=== PATIENT | female | born 1965 | race Caucasian/White ===

== ENCOUNTER 2016-09-17 21:28 | Observation (INO) ==
[2016-09-17] MEDS ORDERED: NITROGLYCERIN 2% OINT 1 INCH/GM PACK TOP STA (22:00)
[2016-09-17] MEDS ORDERED: METOPROLOL TARTRATE 25 MG TABLET PO STA (22:00)
[2016-09-17] MEDS ORDERED: ONDANSETRON 4 MG/2 ML VIAL IV STA (22:00)
--- NOTE | 2016-09-17 22:07 | Emergency Department Note ---
Arrival - Arrival Chief Complaint: Chest Pain ED Nursing Triage Note: Patient is a transfer from [facility] ER for chest pain and elevated blood sugar that began today. Patient recieved 10 units of regular insulin, 20mg labetalol, and 500ml NS bolus. Patient has a history of cardiac catheterization. 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 Mode of Arrival: Stretcher Limitations: No Limitations Source: Patient Time Seen by Provider: 09/17/16 22:00 - History of Present Illness HPI Narrative: This 51-year-old white female presents on transfer from [facility] where she had presented with chest pain and elevated blood sugar. The patient presents with a history of 2 months of progressively more severe and frequent exertional angina. Today was an especially hard pain and for that reason, she sought medical treatment. She was found to have very elevated blood pressure as well as a blood sugar in the 400s at [facility]. She was begun on treatment with subsequent cardiac laboratory revealing negative enzymes and negative EKG. The patient promptly responded to nitroglycerin and treatment of her blood pressures as concerns her chest pain and currently she is without pain. Patient's cardiac history is notable for [address] Keenan in 2011 and she has had no problems in association with her coronary artery disease until the last 2 months. At that time she began having left- sided chest pain associated with radiation between the shoulder blades and to the left upper extremity with accompanying mild shortness of breath but no nausea vomiting or diaphoresis. Currently she is in stable condition. Onset (ago): month(s) (Patient presents 2 months post onset of symptoms) Date of Last Menstrual Period: hysterectomy Allergies/Adverse Reactions: Allergies Allergy/AdvReac Type Severity Reaction Status Date / Time codeine Allergy RASH Verified 05/15/16 14:14 Hydromorphone [From Dilaudid] Allergy Verified 05/15/16 14:14 morphine Allergy RASH Verified 05/15/16 14:14 steroids AdvReac Unknown/Unable Uncoded 05/15/16 14:14 to obtain Home Medications: Home Medications Medication Instructions Recorded Confirmed Type Aspirin [Ecotrin] 81 mg PO DAILY 05/15/16 09/17/16 History Carvedilol [Coreg] 12.5 mg PO BID 05/15/16 09/17/16 History Ergocalciferol (Vitamin D2) 50,000 unit PO Q7D 05/15/16 09/17/16 History [Vitamin D2] Furosemide Tab [Lasix Tab] 40 mg PO DAILY 05/15/16 09/17/16 History Insulin Aspart [NovoLOG FlexPen] 40 unit SUBCUT TID 05/15/16 09/17/16 History Insulin Glargine,Hum.rec.anlog 50 unit SUBCUT BID 05/15/16 09/17/16 History [Lantus SoloStar] Linaclotide [Linzess] 145 mcg PO DAILY 05/15/16 09/17/16 History Pravastatin Sodium 40 mg PO DAILY 05/15/16 09/17/16 History Valsartan/Hydrochlorothiazide 1 each PO DAILY 05/15/16 09/17/16 History [Valsartan-Hctz 160-12.5 mg Tab] cefUROXime axetil [Cefuroxime] 250 mg PO BID 05/15/16 09/17/16 History Review of System - Review of System 12 point system: reviewed and no additional remarkable complaints except as stated - Review of System Constitutional: Present: as per HPI Respiratory: Present: as per HPI Cardiovascular: Present: as per HPI Gastrointestinal: Present: as per HPI Endocrine: Present: as per HPI Medical,Surgical,& Family Hx - Medical History Cardio: History of: CAD, Hypertension Neurology: History of: Multiple Sclerosis Endocrine: History of: Diabetes Mellitus (IDDM), Dyslipidemia Rheumatology: History of;: Fibromyalgia Gastrointestinal: History of: Liver Problems (cirrohosis) - Surgical History Cardiac Surgeries: Sugical HX of: Cardiac Catheterization (stent) - Social History Smoking Status: Never smoker Frequency of Alcohol Use: None Type of Drug Use: None Exam Physical Examination: GENERAL: Obese white female in no acute distress. HEENT: Normocephalic. No trauma. Moist mucous membranes. EOMI. PERRLA. ENT NML NECK: Supple. No adenopathy. CARDIAC: Regular. No murmurs. Heart rate 84 CHEST: Clear to auscultation. No respiratory distress. O2 sat 97% ABDOMEN: Soft. Nontender. Active bowel sounds. EXTREMITIES: No trauma. Normal ROM. No pedal edema. SKIN: No diaphoresis. No rash. NEURO: Alert. Neuro intact no focal deficits. Vital Signs: Vital Signs Temperature 97.6 F 09/17/16 21:40 Pulse Rate 84 09/17/16 21:40 Respiratory Rate 20 09/17/16 21:40 Blood Pressure 188/87 09/17/16 21:40 O2 Sat by Pulse Oximetry 97 09/17/16 21:40 Course - Reevaluation(s) Reevaluation #1: Discussed with patient the need for hospitalization for further evaluation. - Consultations Consultation #1: Discussed with Dr. Vyas who will admit for Dr. Wang for further evaluation and treatment. Results - Labs Labs: Labs per [facility]: Glucose 449, BNP 160 urinalysis negative troponin less than 0.03, MB 4.4 potassium 4.5, sodium 135, BUN 22, creatinine 0.9, glucose 485, white blood cell count 5700 hematocrit 33 Accu-Chek here 329 - Impressions EKG per [place] revealed sinus rhythm at [address] changes without any acute injury pattern noted - Diagnostic Findings Procedure: Chest x-ray: image reviewed by me, report reviewed by me (Chest x- ray reveals no acute disease.) Disposition Clinical Impression: Progressive angina, Coronary atherosclerosis, Diabetes, Obesity Case discussed with: patient, patient's family Disposition: Still a Patient Condition: Guarded Time of Disposition: 22:17
[2016-09-17] MEDS ORDERED: DEXTROSE 50% 25 GM/50 ML VIAL IV PRN (22:20)
[2016-09-17] MEDS ORDERED: GLUCAGON 1 MG VIAL IM PRN (22:20)
[2016-09-17] MEDS ORDERED: ONDANSETRON 4 MG/2 ML VIAL ONE (22:43)
[2016-09-17] MEDS ORDERED: METOPROLOL TARTRATE 25 MG TABLET ONE (22:43)
[2016-09-17] MEDS ORDERED: NITROGLYCERIN 2% OINT 1 INCH/GM PACK TOP ONE (22:43)
[2016-09-18 00:30] LABS: Troponin I Only < 0.015 NG/ML (0.00-0.045)
[2016-09-18] MEDS: SODIUM CHLORIDE 0.9% 1,000 ML IV SCH ×2 (00:32→15:21)
[2016-09-18] MEDS: NITROGLYCERIN 2% OINT 1 INCH/GM PACK TOP SCH ×4 (00:42→18:04)
[2016-09-18] MEDS: INSULIN REGULAR 100 UNIT/ML SUBCUT SCH ×5 (00:43→22:00)
[2016-09-18] MEDS: METOPROLOL TARTRATE 5 MG/5 ML VIAL IV SCH ×2 (00:44→05:22)
[2016-09-18] MEDS: ONDANSETRON 4 MG/2 ML VIAL IV PRN ×2 (05:01→16:52)
[2016-09-18] MEDS ORDERED: MAGNESIUM SULF RIDER 2 GM in PREMIX 1 EACH IV PRN ×2 (06:54→10:31)
[2016-09-18] MEDS ORDERED: MAGNESIUM SULF RIDER 4 GM in PREMIX 1 EACH IV PRN (06:54)
[2016-09-18] MEDS ORDERED: MORPHINE 2 MG/1 ML SYRINGE IV PRN (06:54)
[2016-09-18] MEDS ORDERED: ACETAMINOPHEN 325 MG TABLET PO PRN (06:54)
[2016-09-18] MEDS ORDERED: DOCUSATE SODIUM 100 MG CAPSULE PO PRN (06:54)
[2016-09-18 07:46] LABS: Basophils % 0.4 % (0.0-0.8); Eosinophils # 0.1 10*3/uL (0.0-0.87); Eosinophils % 1.3 % (0.00-10.9); Hematocrit 30.5 VOL% (35.7-47.0); Hemoglobin 10.1 GM/DL (12.0-16.0); Immature Granulocytes % 0.6 %; Immature Granulocytes Absolute 0.03 #; Lymphocytes # 1.2 10*3/uL (1.4-4.0); Lymphocytes % 23.2 % (21.3-54.2); Mean Corpuscular HGB Conc 33.1 GM/DL (32-36); Mean Corpuscular Hemoglobin 26 PG (27-34); Mean Corpuscular Volume 77.6 FL (87-102); Mean Platelet Volume 9.2 FL (9.6-12.0); Monocytes # 0.4 10*3/uL (0.11-0.8); Monocytes % 7.4 % (1.7-12.7); Neutrophils # 3.5 10*3/uL (1.4-7.4); Neutrophils % 67.1 % (38.7-73.9); Platelet Count 122 T/CUMM (130-400); Red Blood Count 3.93 MC/CUMM (3.8-5.5); Red Cell Distribution Width 14.5 % (9.3-17.3); White Blood Count 5.3 T/CUMM (4-12)
--- NOTE | 2016-09-18 08:05 | EKG Report ---
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
--- NOTE | 2016-09-18 08:05 | EKG Report ---
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
[2016-09-18 08:18] LABS: Blood Urea Nitrogen 23 MG/DL (7-18); Calcium 8.2 MG/DL (8.5-10.1); Glucose 250 MG/DL (74-106); Osmolality,Calculated 294.1 MOS/KG (273-304); Potassium 4.1 MMOL/L (3.5-5.1); Sodium 142 MMOL/L (136-145); Troponin I Only < 0.015 NG/ML (0.00-0.045)
[2016-09-18 08:21] LABS: Free T4 (Free Thyroxine) 1.07 NG/DL (0.76-1.46); Thyroid Stimulating Hormone 3.56 uIU/ml (0.358-3.74)
[2016-09-18 08:32] LABS: Troponin I Only < 0.015 NG/ML (0.00-0.045)
[2016-09-18 08:36] LABS: Calcium 8.5 MG/DL (8.5-10.1); Magnesium 2.1 MG/DL (1.8-2.4); Osmolality,Calculated 293.3 MOS/KG (273-304); Risk Ratio 3.94
[2016-09-18] MEDS ORDERED: ERGOCALCIFEROL 50,000 UNIT CAPSULE PO SCH (10:00)
--- NOTE | 2016-09-18 10:06 | Cardiology History & Physical ---
<Iona Ibrahim - Last Filed: 09/18/16 09:25> Assessment and Plan - Time spent with patient Time spent with patient: Greater than 30 minutes (1) Chest pain Status: Acute Assessment and plan: See plan of care listed below. Current Visit: Yes (2) Coronary artery disease Status: Chronic Assessment and plan: See plan of care listed below. Current Visit: Yes (3) Diabetes Status: Chronic Assessment and plan: See plan of care listed below. Current Visit: Yes (4) Hypertension Status: Chronic Assessment and plan: See plan of care listed below. Current Visit: Yes (5) Dyslipidemia Status: Chronic Current Visit: Yes (6) Esophageal varices Status: Chronic Assessment and plan: See plan of care listed below. Current Visit: Yes (7) Cirrhosis Status: Chronic Assessment and plan: See plan of care listed below. Current Visit: Yes (8) Obesity Status: Chronic Assessment and plan: See plan of care listed below. Current Visit: Yes History of Present Illness Chief complaint: Chest pain History of present illness: Business Development Representative: Dr. Wang Ms. Shipley is a 51 year old female with known history of CAD, recently blighted by Dr. Wang. She was transferred from [facility] with complaints of chest pain. She has cardiac risk factors significant for known history of coronary artery disease, diabetes, hypertension, dyslipidemia, obesity, sedentary lifestyle and family history of coronary artery disease (dad of myocardial infarction in his 40s, mother has coronary stents and both sisters have coronary stents). Patient is a lifetime non-smoker. Patient has past medical history of esophageal varices and anxiety. Patient's last heart catheterization was performed 2011 at [facility]. At that time she received PTCA and stent to mid RCA as well as to the mid segment of the first obtuse marginal artery. She was last seen in the cardiology clinic by Dr. Wang September 12, 2016. She reports that she did not report her chest discomfort due to not wanting to upset her significant other. Patient presents with a 2 month history of progressively more severe and frequent chest discomfort. Sometimes occurring with rest and other times with activity. She confirms that she has been under a lot of stress lately as her significant other recently had a stroke. Yesterday, she reports that while walking she began to experience sharp then tightening midsternal chest pain that radiated to her back and left arm. Unable to identify any specific alleviating or aggravating factors. Also, she is unable to rate her pain. This was not relieved with rest and remained constant, waxing and waning all day. Accompanied with shortness of breath and nausea. Also confirms worsening dyspnea on exertion and easy fatigability. Denies fever, chills, cough, abdominal pain, melena, hematochezia, orthopnea, PND and lower extremity swelling. When asked how this compared to when she required stents in 2012. She tells me that she thinks that it is similar in nature. However, is unable to fully remember all of her symptoms. She also reports that her blood pressure has been uncontrolled. Systolic blood pressure as high as 240. This frightened her, so she presented to [facility] for further evaluation. At [facility], she received nitroglycerin paste. She reports that this did slightly help her chest pain. However, did not completely relieve it. She was then transferred to [facility]. Patient has been admitted under cardiology service and housed on the telemetry unit. Patient was seen and examined on the telemetry unit. She is currently without chest pain, heaviness and tightness. Cardiac biomarkers have been negative 2. EKG is unremarkable. Upon exam, patient's chest is extremely tender to palpation. However, she confirms that this is not the same pain that she presented to the emergency department with. Patient has some typical and atypical symptoms. After discussing with Dr. Wang, we will schedule patient for cardiac catheterization in order to definitively rule out worsening of her underlying coronary artery disease. Risk and benefits of this procedure have been reviewed with the patient. She agrees to proceed later today. We will keep patient n.p.o. and plan for heart catheterization today. Assessment/plan: 1. CHEST PAIN - Patient has some typical and atypical symptoms. Patient does have significant risk factors including a known history of coronary artery disease and after discussing with Dr. Wang, we will schedule patient for cardiac catheterization in order to definitively rule out worsening of her underlying coronary artery disease. Risk and benefits of this procedure have been reviewed with the patient. She agrees to proceed later today. We will keep patient n.p.o. and plan for heart catheterization today. 2. HYPERTENSION - Home medications have been reinitiated. Will adjust as needed throughout her hospital stay. 3. DYSLIPIDEMIA -continue current plan of care with lipid lowering agent. 4. DIABETES -Accu-Cheks before meals and at bedtime. Sliding scale insulin. 5. OBESITY - Counseled patient on the importance of weight loss. 6. HISTORY OF CIRRHOSIS - This appears to be clinically stable. Continue current plan of care. Patient will not be given Valium preoperatively for heart catheterization given her cirrhosis diagnosis. 7. HISTORY OF ESOPHAGEAL VARICES - This appears to be clinically stable at present. 8. CAD - Continue current plan of care with lipid lowering agent and beta blockade. Home Medications Medication Instructions Recorded Confirmed Type Aspirin [Ecotrin] 81 mg PO DAILY 05/15/16 09/17/16 History Carvedilol [Coreg] 12.5 mg PO BID 05/15/16 09/17/16 History Ergocalciferol (Vitamin D2) 50,000 unit PO Q7D 05/15/16 09/17/16 History [Vitamin D2] Furosemide Tab [Lasix Tab] 40 mg PO DAILY 05/15/16 09/17/16 History Insulin Aspart [NovoLOG FlexPen] 40 unit SUBCUT TID 05/15/16 09/17/16 History Insulin Glargine,Hum.rec.anlog 50 unit SUBCUT BID 05/15/16 09/17/16 History [Lantus SoloStar] Linaclotide [Linzess] 145 mcg PO DAILY 05/15/16 09/17/16 History Pravastatin Sodium 40 mg PO DAILY 05/15/16 09/17/16 History Valsartan/Hydrochlorothiazide 1 each PO DAILY 05/15/16 09/17/16 History [Valsartan-Hctz 160-12.5 mg Tab] cefUROXime axetil [Cefuroxime] 250 mg PO BID 05/15/16 09/17/16 History Allergies Allergy/AdvReac Type Severity Reaction Status Date / Time codeine Allergy RASH Verified 05/15/16 14:14 Hydromorphone [From Dilaudid] Allergy Verified 05/15/16 14:14 morphine Allergy RASH Verified 05/15/16 14:14 steroids AdvReac Unknown/Unable Uncoded 05/15/16 14:14 to obtain - Constitutional Constitutional: Present: fatigue, lethargy, malaise. Absent: chills, fever(s), weakness, weight gain, weight loss - Cardiovascular Cardiovascular: Present: chest pain at rest, chest pain with activity, dyspnea, dyspnea on exertion, radiating jaw, neck or arm pain. Absent: claudication, diaphoresis, edema, lightheadedness, orthopnea, palpitations, PND - Respiratory Respiratory: Present: dyspnea, dyspnea on exertion. Absent: cough, hemoptysis, wheezing, snoring, pain on inspiration, change in phlegm color - Gastrointestinal Gastrointestinal: Present: nausea. Absent: abdominal pain, coffee ground emesis , hematochezia, melena - Neurological Neurological: Absent: abnormal gait, abnormal speech, behavioral changes, dizziness, frequent falls, syncope - Hematologic/Lymphatic Hematologic/Lymphatic: Absent: easy bleeding, easy bruising, lymphadenopathy Medical,Surgical,& Family Hx - Medical History Cardio: History of: CAD, Hypertension Psychological: History of: Anxiety Disorders Neurology: History of: Multiple Sclerosis Endocrine: History of: Diabetes Mellitus (NIDDM), Dyslipidemia Rheumatology: History of;: Fibromyalgia Gastrointestinal: History of: Esophageal Varices, Liver Problems (cirrohosis) - Surgical History Cardiac Surgeries: Sugical HX of: Cardiac Catheterization (stent) - Family History Family History: Reports;: Family Heart Disease - Social History Smoking Status: Never smoker Frequency of Alcohol Use: None Type of Drug Use: None Cardiology Physical Exam - Constitutional Vitals: Vital Signs Temp Pulse Resp BP Pulse Ox 97.7 F 71 18 171/74 95 09/18/16 07:20 09/18/16 07:20 09/18/16 07:20 09/18/16 07:20 09/18/16 07:20 Intake and Output 09/17/16 09/18/16 09/18/16 22:59 06:59 14:59 Output Total 400 / 400 Balance -400 / -400 Output: Urine 400 / 400 Other: Voiding Method Toilet Weight 225 lb Exam: General: Appears well with no apparent distress. Pleasant and cooperative. Appears comfortable. HEENT: PERRL, normocephalic, atraumatic. Mucous membranes moist. No jaundice noted. Conjunctiva moist and clear, sclerae anicteric Neck: No JVD/HJR, no thyromegaly or lymphadenopathy noted. No carotid bruit appreciated Cardiac: Regular rate and rhythm. No murmur rub or gallop. Chest wall: Tender to light palpation. Lungs: Clear to auscultation without accessory muscle use to assist the respiratory pattern. Not requiring oxygen. Abdomen: Soft, bowel sounds normoactive. Nontender and nondistended. No abdominal bruit or thrill noted. No masses noted. Extremities: No clubbing, cyanosis noted. No edema noted. Upper extremity pulses 2+. Lower extremity pulses 2+. Capillary refill less than 3 seconds. Skin: No unusual lesions or rashes. No skin breakdown appreciated. Neuro: Awake, alert and oriented 3. Moves all extremities well without hemiparesis or paralysis. No essential tremor is appreciated. Result/EKG - Labs CBC & BMP: 09/18/16 07:26 09/18/16 07:26 Lab Results: I have reviewed the past 24 hour labs Labs: Laboratory Results - last 24 hr 09/17/16 09/18/16 09/18/16 23:04 00:30 05:03 WBC RBC Hgb Hct MCV MCH MCHC RDW Plt Count MPV Neut % (Auto) Lymph % (Auto) [place] % (Auto) Eos % (Auto) Baso % (Auto) Neut # (Auto) Lymph # (Auto) [place] # (Auto) Eos # (Auto) Baso # (Auto) Immature Gran % Nucleated RBC % Immature Gran # Nucleated RBCs # Sodium Potassium Chloride Carbon Dioxide Anion Gap BUN Creatinine GFR Calculation BUN/Creatinine Ratio Glucose POC Glucose 341 H 303 H Calculated Osmolality Calcium Magnesium Total Creatine Kinase 100 CK-MB (CK-2) 2.8 Troponin I < 0.015 Triglycerides Cholesterol LDL Cholesterol VLDL Cholesterol HDL Cholesterol Heart Disease Risk Ratio Free T4 TSH 3rd Generation 09/18/16 09/18/16 09/18/16 07:26 07:26 07:26 WBC 5.3 RBC 3.93 Hgb 10.1 L Hct 30.5 L MCV 77.6 L MCH 26 L MCHC 33.1 RDW 14.5 Plt Count 122 L MPV 9.2 L Neut % (Auto) 67.1 Lymph % (Auto) 23.2 [place] % (Auto) 7.4 Eos % (Auto) 1.3 Baso % (Auto) 0.4 Neut # (Auto) 3.5 Lymph # (Auto) 1.2 L [place] # (Auto) 0.4 Eos # (Auto) 0.1 Baso # (Auto) 0.0 Immature Gran % 0.6 Nucleated RBC % 0.0 Immature Gran # 0.03 Nucleated RBCs # 0.00 Sodium 142 141 Potassium 4.1 4.0 Chloride 105 104 Carbon Dioxide 30 29 Anion Gap 11.1 12.0 BUN 23 H 24 H Creatinine 1.00 1.00 GFR Calculation 79 79 BUN/Creatinine Ratio 23.00 H 24.00 H Glucose 250 H 256 H POC Glucose Calculated Osmolality 294.1 293.3 Calcium 8.2 L 8.5 Magnesium 2.1 Total Creatine Kinase 71 D CK-MB (CK-2) 2.6 Troponin I < 0.015 Triglycerides 125 Cholesterol 197 LDL Cholesterol 127.0 VLDL Cholesterol 25.0 HDL Cholesterol 50 Heart Disease Risk Ratio 3.94 Free T4 TSH 3rd Generation 09/18/16 09/18/16 09/18/16 07:26 07:26 07:41 WBC RBC Hgb Hct MCV MCH MCHC RDW Plt Count MPV Neut % (Auto) Lymph % (Auto) [place] % (Auto) Eos % (Auto) Baso % (Auto) Neut # (Auto) Lymph # (Auto) [place] # (Auto) Eos # (Auto) Baso # (Auto) Immature Gran % Nucleated RBC % Immature Gran # Nucleated RBCs # Sodium Potassium Chloride Carbon Dioxide Anion Gap BUN Creatinine GFR Calculation BUN/Creatinine Ratio Glucose POC Glucose 272 H Calculated Osmolality Calcium Magnesium Total Creatine Kinase 73 CK-MB (CK-2) 2.5 Troponin I < 0.015 Triglycerides Cholesterol LDL Cholesterol VLDL Cholesterol HDL Cholesterol Heart Disease Risk Ratio Free T4 1.07 TSH 3rd Generation 3.560 - EKG EKG results: interpreted by me, sinus rhythm <Shana Wang - Last Filed: 09/18/16 11:37> History of Present Illness History of present illness: I have personally interviewed and examined the patient, reviewed the chart and discussed medical decision-making with practitioner Patrice. I have read this note and agree with the documentation herein. She has a mixed picture of some typical and atypical symptoms, but she is a high risk patient has had some ongoing symptoms that are difficult to delineate. We will proceed with left heart catheterization and consider bare-metal stenting even her underlying cirrhosis with possible varices. Cardiology Physical Exam - Constitutional Vitals: Vital Signs Temp Pulse Resp BP Pulse Ox 97.7 F 71 18 171/74 95 09/18/16 07:20 09/18/16 07:20 09/18/16 07:20 09/18/16 07:20 09/18/16 07:20 Intake and Output 09/17/16 09/18/16 09/18/16 23:59 07:59 15:59 Output Total 400 / 400 Balance -400 / -400 Output: Urine 400 / 400 Other: Voiding Method Toilet Weight 102.058 kg Result/EKG - Labs CBC & BMP: 09/18/16 07:26 09/18/16 07:26 Labs: Laboratory Results - last 24 hr 09/17/16 09/18/16 09/18/16 23:04 00:30 05:03 WBC RBC Hgb Hct MCV MCH MCHC RDW Plt Count MPV Neut % (Auto) Lymph % (Auto) [place] % (Auto) Eos % (Auto) Baso % (Auto) Neut # (Auto) Lymph # (Auto) [place] # (Auto) Eos # (Auto) Baso # (Auto) Immature Gran % Nucleated RBC % Immature Gran # Nucleated RBCs # INR PT Patient/Control Mix Sodium Potassium Chloride Carbon Dioxide Anion Gap BUN Creatinine GFR Calculation BUN/Creatinine Ratio Glucose POC Glucose 341 H 303 H Calculated Osmolality Calcium Magnesium Total Creatine Kinase 100 CK-MB (CK-2) 2.8 Troponin I < 0.015 Triglycerides Cholesterol LDL Cholesterol VLDL Cholesterol HDL Cholesterol Heart Disease Risk Ratio Free T4 TSH 3rd Generation 09/18/16 09/18/16 09/18/16 07:26 07:26 07:26 WBC 5.3 RBC 3.93 Hgb 10.1 L Hct 30.5 L MCV 77.6 L MCH 26 L MCHC 33.1 RDW 14.5 Plt Count 122 L MPV 9.2 L Neut % (Auto) 67.1 Lymph % (Auto) 23.2 [place] % (Auto) 7.4 Eos % (Auto) 1.3 Baso % (Auto) 0.4 Neut # (Auto) 3.5 Lymph # (Auto) 1.2 L [place] # (Auto) 0.4 Eos # (Auto) 0.1 Baso # (Auto) 0.0 Immature Gran % 0.6 Nucleated RBC % 0.0 Immature Gran # 0.03 Nucleated RBCs # 0.00 INR PT Patient/Control Mix Sodium 142 141 Potassium 4.1 4.0 Chloride 105 104 Carbon Dioxide 30 29 Anion Gap 11.1 12.0 BUN 23 H 24 H Creatinine 1.00 1.00 GFR Calculation 79 79 BUN/Creatinine Ratio 23.00 H 24.00 H Glucose 250 H 256 H POC Glucose Calculated Osmolality 294.1 293.3 Calcium 8.2 L 8.5 Magnesium 2.1 Total Creatine Kinase 71 D CK-MB (CK-2) 2.6 Troponin I < 0.015 Triglycerides 125 Cholesterol 197 LDL Cholesterol 127.0 VLDL Cholesterol 25.0 HDL Cholesterol 50 Heart Disease Risk Ratio 3.94 Free T4 TSH 3rd Generation 09/18/16 09/18/16 09/18/16 07:26 07:26 07:26 WBC RBC Hgb Hct MCV MCH MCHC RDW Plt Count MPV Neut % (Auto) Lymph % (Auto) [place] % (Auto) Eos % (Auto) Baso % (Auto) Neut # (Auto) Lymph # (Auto) [place] # (Auto) Eos # (Auto) Baso # (Auto) Immature Gran % Nucleated RBC % Immature Gran # Nucleated RBCs # INR 1.0 PT Patient/Control Mix 10.5 Sodium Potassium Chloride Carbon Dioxide Anion Gap BUN Creatinine GFR Calculation BUN/Creatinine Ratio Glucose POC Glucose Calculated Osmolality Calcium Magnesium Total Creatine Kinase 73 CK-MB (CK-2) 2.5 Troponin I < 0.015 Triglycerides Cholesterol LDL Cholesterol VLDL Cholesterol HDL Cholesterol Heart Disease Risk Ratio Free T4 1.07 TSH 3rd Generation 3.560 09/18/16 07:41 WBC RBC Hgb Hct MCV MCH MCHC RDW Plt Count MPV Neut % (Auto) Lymph % (Auto) [place] % (Auto) Eos % (Auto) Baso % (Auto) Neut # (Auto) Lymph # (Auto) [place] # (Auto) Eos # (Auto) Baso # (Auto) Immature Gran % Nucleated RBC % Immature Gran # Nucleated RBCs # INR PT Patient/Control Mix Sodium Potassium Chloride Carbon Dioxide Anion Gap BUN Creatinine GFR Calculation BUN/Creatinine Ratio Glucose POC Glucose 272 H Calculated Osmolality Calcium Magnesium Total Creatine Kinase CK-MB (CK-2) Troponin I Triglycerides Cholesterol LDL Cholesterol VLDL Cholesterol HDL Cholesterol Heart Disease Risk Ratio Free T4 TSH 3rd Generation
--- NOTE | 2016-09-18 10:22 | History and Physical Update ---
Sedation H&P Update - History and Physical H&P was reviewed, the patient examined and there: are no changes in the patients condition since last H&P was completed. - Dictation Physical: refer to H&P completed by admitting physician - Physical Exam Mental Status: alert and oriented Heart: regular rate and rhythm Lung: clear to auscultation Abdomen: within normal limits Vitals: within normal limits - Sedation Plan for Sedation: moderate Patient Consent: Procedure disscussed with patient and patinet has consented., Risks and benefits were discussed with patient,including infection,, bleeding, injury to surrounding structures, seizure, temporary nerve, Patient understands and accepts potential risks/benefits and agrees to, proceed. ASA Class: IV Airway Assessment: Class II: Soft palate, uvula, fauces visible
[2016-09-18] MEDS ORDERED: diphenhydrAMINE CAP 25 MG CAPSULE PO ONE (10:31)
[2016-09-18] MEDS ORDERED: POTASSIUM CHLORIDE RIDER 10 MEQ in PREMIX 1 EACH IV PRN (10:31)
[2016-09-18 10:47] LABS: PT Patient Result 10.5 SECS
[2016-09-18] MEDS: ASPIRIN EC 81 MG TABLET PO SCH (11:01)
[2016-09-18] MEDS ORDERED: HEPARIN/NACL 0.9% 2 UNITS/ML 1,000 ML IV ONE (11:02)
[2016-09-18] MEDS ORDERED: SODIUM BICARBONATE 2.4 MEQ/5 ML VIAL ONE (11:02)
[2016-09-18] MEDS ORDERED: LIDOCAINE 1% 20 ML VIAL ONE (11:02)
[2016-09-18] MEDS ORDERED: fentaNYL 100 MCG/2 ML VIAL ONE ×2 (11:51→13:07)
[2016-09-18] MEDS ORDERED: MIDAZOLAM 2 MG/2 ML VIAL ONE ×3 (11:51→13:07)
[2016-09-18] MEDS ORDERED: BIVALIRUDIN 250 MG VIAL IV ONE ×2 (12:15→13:11)
[2016-09-18] MEDS ORDERED: METOPROLOL TARTRATE 5 MG/5 ML VIAL IV ONE ×2 (12:22→13:06)
[2016-09-18] MEDS ORDERED: hydrALAZINE 20 MG/1 ML VIAL ONE (12:37)
[2016-09-18] MEDS ORDERED: HEPARIN/NACL 0.9% 2 UNITS/ML 500 ML IV ONE (13:16)
[2016-09-18] MEDS ORDERED: CLOPIDOGREL 300 MG TABLET ONE ×2 (13:35→13:46)
--- NOTE | 2016-09-18 14:41 | EKG Report ---
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
[2016-09-18] MEDS: CARVEDILOL 12.5 MG TABLET PO SCH (14:43)
[2016-09-18] MEDS: VALSARTAN/HCTZ 160-12.5 MG TABLET PO SCH (14:43)
[2016-09-18] MEDS: PANTOPRAZOLE 40 MG TABLET PO SCH (14:43)
[2016-09-18] MEDS ORDERED: INSULIN LISPRO 100 UNIT/ML SUBCUT SCH (15:00)
--- NOTE | 2016-09-18 15:09 | Cardiology Operative Report ---
Date of Procedure:: 09/18/16 Pre-op diagnosis: Acute coronary syndrome Post-op diagnosis: other (Severe single-vessel coronary artery disease of the first obtuse marginal artery) Procedure: 1. Selective left and right coronary angiography. 2. Left heart catheterization with left ventriculogram. 3. Right iliac angiography to rule out vascular complications. 4. Percutaneous intervention of the first obtuse marginal artery with placement of a rebel 3 x 12 mm bare-metal stent postdilated to 3.5 mm. 5. Deployment of dislodged rebel 3.5 x 16 mm bare-metal stent in the proximal circumflex artery. Impression: 1. Severe single-vessel coronary artery disease with first obtuse marginal artery 80% stenosis. 2. Patent stent in the first obtuse marginal artery distal to the new stenosis. 3. Patent mid right coronary artery stent. 4. Mild to moderate diffuse residual coronary artery disease in the other vessels. 5. Right dominant coronary arteries. 6. ejection fraction 70 %. 4. Angiographically normal right iliac artery without evidence of vascular complications. 5. Successful PCI of the first obtuse marginal artery as described above. 6. The case was complicated by dislodgment of a rebel 3.5 x 16 mm bare-metal stent prior to deployment, and this was successfully positioned and deployed in the proximal circumflex artery. Plan: 1. DAPT > 1-2 months. 2. Risk factor modification. Equipment: Diagnostic 6 Spanish JL4, JR4, pigtail catheters Guiding 6 Spanish EBU 3.5, 180cm Prowater wire 2, mini trek 2 x 12 mm balloon, apex 3 x 12 mm balloon, rebel 3.5 x 16 mm and rebel 3 x 12 mm bare-metal stents , Quantum 4 x 12 mm and Trek 3.5 x 8 mm non-compliant balloons, guide Larry guide liner, BMW 190 cm wire as a logan wire Hemodynamics: Aortic pressure 178/84 mmHg, left ventricular pressure 215/19 mmHg, LVEDP 35 mmHg Sedation: Versed 6 mg, fentanyl 150 mcg Procedure: After informed consent was obtained the patient was prepped and draped in sterile fashion. The right groin was infiltrated with 1% lidocaine and the right femoral artery was accessed via modified Seldinger technique using a micropuncture needle and a 6 Spanish femoral arterial sheath was placed. All catheter exchanges were performed over a guidewire under fluoroscopic guidance. Diagnostic 6 Spanish JL4 and JR4 catheters were advanced to the left and right coronary arteries respectively and multiple cineangiograms were performed in varying degrees of obliquity and angulation. Thereafter a pigtail catheter was advanced into the left ventricle where hemodynamics were obtained followed by left ventriculogram. Percutaneous intevention of the first obtuse marginal artery was then performed as described below. At conclusion of the procedure right iliac angiography was performed to rule out vascular complications. Findings: 1. The left main artery is angiographically normal. 2. The left anterior descending artery extends to the apex and wraps around. There is mild to moderate diffuse atheromatous disease with up to 30% stenosis 3. There is not an intermediate ramus branch. 4. The circumflex artery is a nondominant vessel. It gives rise to a large and tortuous first marginal artery that has a stent in the distal mid segment that is patent. Proximal to the stented segment there is 80% stenosis. The remainder of the circumflex artery has mild to moderate atheromatous disease with up to 50% stenosis. 5. The right coronary artery is a dominant vessel. There is a stent in the midsegment that is patent. There is diffuse at least mild atheromatous disease in the remainder of the vessel with up to 30% stenosis. 6. Ejection fraction is 70 % with normal anterior, inferior and apical wall motion. 7. No significant mitral regurgitation. 8. No significant aortic stenosis. 9. The right iliac artery is angiographically normal without evidence of vascular complications. PCI: The patient was anticoagulated with Angiomax. After appropriate anticoagulation was confirmed with an ACT measurement, a guiding 6 Spanish EBU 3.5 catheter was advanced to the left main artery. A Kobojowater 180 cm wire was used to traverse the circumflex artery with mild to moderate difficulty given the tortuosity of the vessel. A mini trek 2 x 12 mm balloon was advanced to the site of stenosis and angioplasty was performed at 14 breanna. Thereafter, a rebel 3.5 x 16 mm bare-metal stent was advanced over the wire, but could not be advanced far enough into the vessel for deployment. Attempt was made to withdraw the stent into the guide, and the stent was noted to dislodge. A mini trek 2 x 12 mm balloon was advanced through the stent and inflated mildly just distal to the stent. An attempt was made to capture the stent into the Guidezilla, but the stent was noted to become partially deployed with the balloon somewhat inside of it. This was in the proximal circumflex artery. Accordingly, the mini trek balloon was deflated, advanced into the stent and inflated to 14 breanna. Thereafter a Quantum [place] 4 x 12 mm noncompliant balloon was advanced into the stent and used to fully deploy the stent at 12 breanna. There was some concern that it would still be difficult to deliver a stent to the treated segment in the first obtuse marginal artery, particularly with the new stent deployed in the proximal portion of the circumflex artery. Accordingly I attempted to advance a guide liner through the stent, but it would not pass through the proximal stent edge. A balloon was advanced over the wire to use as a guide for the Guidezilla to advance into the stent, but this was unsuccessful. A vision 3.5 x 15 mm stent would not readily pass into the proximally stented region. A BMW logan wire was used to wire the first obtuse marginal artery with the pro-water left in place. However, even with the support the stent still would not pass. When the Godzilla and second BMW wire were withdrawn, the pro-water also withdrew partially from the vessel. There was some consideration giving to completing the procedure with balloon angioplasty only at the culprit region given these technical difficulties, with hopes that the stent would endothelialize and allow for better stent delivery in the future. However, there was suspicion of a type a dissection at the angioplastied segment in the first marginal artery. I was not able to rewire the marginal branch with the wire in place. A second pro-water 180 cm wire was then used to wire the first marginal artery, and the initial pro-water wire was removed. An apex 3 x 12 mm balloon was advanced to the site of dissection and previous angioplasty and a long inflation at 6 breanna was performed. There was not satisfactory resolution of the anatomical site in question. A rebel 3 x 12 mm stent was finally successfully delivered to the site of angioplasty and the marginal artery and deployed at 18 breanna. Thereafter a noncompliant trek 3.5 x 8 mm balloon was advanced into the stent and post dilation was performed at 12 breanna. Satisfactory angiographic result was obtained with appropriate step-up proximally and distally, and no evidence of residual vascular complications. Preoperatively there was 80% stenosis with LELE-3 flow in the first marginal branch, postoperatively there is 0% residual stenosis with LELE-3 flow. Contrast use: Omnipaque 300 21 cc Fluoro time: 27.31 minutes Complications: Dislodged stent and type a dissection as described above. Specimens removed: none Devices implanted: stents as described above Anesthesia: moderate conscious sedation Surgeon / Physician: Shana Wang Label Coder: none (Reagan Cardona) Estimated blood loss: minimal Specimens: none sent Condition: stable Disposition: ICU/CCU
[2016-09-18 15:38] LABS: Troponin I Only 0.039 NG/ML (0.00-0.045)
[2016-09-18] MEDS ORDERED: SODIUM CHLORIDE 0.9% 250 ML IV ONE (17:00)
[2016-09-18 17:26] LABS: Hematocrit 31.1 VOL% (35.7-47.0); Hemoglobin 10.4 GM/DL (12.0-16.0)
--- NOTE | 2016-09-18 17:28 | EKG Report ---
Stationary ECG Study 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
--- NOTE | 2016-09-18 17:56 | Event Note ---
Called to see patient secondary to episode of bradycardia and hypotension. There was some associated nausea and vomiting, it is unclear if one event preceded the other. She responded well to an IV fluid bolus. She is somewhat ill-appearing, and reports feeling nauseated and a generalized sense of malaise. She does have some chronic nausea issues. Her groin site is without hematoma. Her lungs are clear to auscultation bilaterally. Cardiac exam is a regular rate and rhythm without any new murmurs. Her blood pressure is now normalized and her heart rate is normalized as well. ECG does not show any acute changes. We have applied some external pacemaker pads. She is denying any chest pain or shortness of breath currently. I have spoken with the family and updated them on her clinical condition. I will cycle her cardiac enzymes and check a CBC. We will continue to manage her expectantly.
[2016-09-18 19:00] LABS: Troponin I Only 0.059 NG/ML (0.00-0.045)
[2016-09-18] MEDS: INSULIN GLARGINE 100 UNIT/ML SUBCUT SCH (22:00)
[2016-09-19 00:11] LABS: Troponin I Only 0.047 NG/ML (0.00-0.045)
[2016-09-19 01:26] LABS: Calcium 8.3 MG/DL (8.5-10.1); Osmolality,Calculated 289.4 MOS/KG (273-304)
[2016-09-19 01:37] LABS: Basophils % 0.1 % (0.0-0.8); Eosinophils # 0.1 10*3/uL (0.0-0.87); Eosinophils % 0.8 % (0.00-10.9); Hematocrit 32.1 VOL% (35.7-47.0); Hemoglobin 10.6 GM/DL (12.0-16.0); Immature Granulocytes % 0.4 %; Immature Granulocytes Absolute 0.03 #; Lymphocytes # 0.8 10*3/uL (1.4-4.0); Lymphocytes % 11.6 % (21.3-54.2); Mean Corpuscular Hemoglobin 25 PG (27-34); Mean Corpuscular Volume 75.9 FL (87-102); Mean Platelet Volume 9.5 FL (9.6-12.0); Monocytes # 0.4 10*3/uL (0.11-0.8); Monocytes % 5.5 % (1.7-12.7); Neutrophils # 5.8 10*3/uL (1.4-7.4); Neutrophils % 81.6 % (38.7-73.9); Platelet Count 142 T/CUMM (130-400); Red Blood Count 4.23 MC/CUMM (3.8-5.5); Red Cell Distribution Width 14.6 % (9.3-17.3); White Blood Count 7.1 T/CUMM (4-12)
[2016-09-19 01:39] LABS: Troponin I Only 0.056 NG/ML (0.00-0.045)
[2016-09-19] MEDS: SODIUM CHLORIDE 0.9% 1,000 ML IV SCH (02:20)
--- NOTE | 2016-09-19 07:12 | EKG Report ---
Stationary ECG Study [facility] Test Date: 09/19/2016 7:11:36 AM Pat Name: JENNIE HODEGS Department: Room: 105 Gender: F Health Professional: FLORA : 1965 Requested by: Iona Ibrahim Order Number: [id number] Reading MD: RICHAR BEAR Intervals [place] Rate: 73 P: 52 [place]: 133 QRS: 66 QRSD: 89 T: -7 QT: 416 QTc: 442 Interpretive Statements SINUS RHYTHM NONSPECIFIC T-WAVE ABNORMALITY Electronically Signed On 09-19-16 21:40:22 CDT by RICHAR BEAR [email or web address]
--- NOTE | 2016-09-19 07:19 | Cardiology Progress Note ---
<Keisha Delacruz E - Last Filed: 09/19/16 08:17> Assessment and Plan - Time spent with patient Time spent with patient: Greater than 30 minutes (1) Chest pain Status: Resolved Assessment and plan: SEE PLAN OF CARE LISTED BELOW Current Visit: Yes (2) Coronary artery disease Status: Chronic Assessment and plan: SEE PLAN OF CARE LISTED BELOW Current Visit: Yes (3) Diabetes Status: Chronic Assessment and plan: SEE PLAN OF CARE LISTED BELOW Current Visit: Yes (4) Hypertension Status: Chronic Assessment and plan: SEE PLAN OF CARE LISTED BELOW Current Visit: Yes (5) Dyslipidemia Status: Chronic Assessment and plan: SEE PLAN OF CARE LISTED BELOW Current Visit: Yes (6) Esophageal varices Status: Chronic Assessment and plan: SEE PLAN OF CARE LISTED BELOW Current Visit: Yes (7) Cirrhosis Status: Chronic Assessment and plan: SEE PLAN OF CARE LISTED BELOW Current Visit: Yes (8) Obesity Status: Chronic Assessment and plan: SEE PLAN OF CARE LISTED BELOW Current Visit: Yes Cardiology - PN: Subj Interval history: Non Categorical Preschool Teacher: DR. WANG SUMMARY: Ms. Shipley, 51WF, has known history of severe CAD, hypertension, dyslipidemia, diabetes, obesity, esophageal varices, history of cirrhosis. Patient was admitted September 17, 2016 with complaints of chest pain. She underwent cardiac catheterization September 18, 2016 with the following impression noted: Impression: 1. Severe single-vessel coronary artery disease with first obtuse marginal artery 80% stenosis. 2. Patent stent in the first obtuse marginal artery distal to the new stenosis. 3. Patent mid right coronary artery stent. 4. Mild to moderate diffuse residual coronary artery disease in the other vessels. 5. Right dominant coronary arteries. 6. ejection fraction 70 %. 4. Angiographically normal right iliac artery without evidence of vascular complications. 5. Successful PCI of the first obtuse marginal artery as described above. 6. The case was complicated by dislodgment of a rebel 3.5 x 16 mm bare-metal stent prior to deployment, and this was successfully positioned and deployed in the proximal circumflex artery. Upon arrival to the ICU, patient experienced bradycardia and hypotension, nausea and vomiting. She responded well to an IV fluid bolus. SEPTEMBER 19, 2016: Overnight, patient has done well. No additional bradycardia or hypotension. Labs are stable (troponins flat). She continues to take Aspirin, beta-venessa, Plavix, lipid lowering agent, ARB. She acknowledges mild soreness of the right groin but there is no hematoma or bruit. She would like to be discharged upstairs. This morning, we will transferred her to telemetry with anticipation of possible discharge in the morning. No need to repeat lipid profile as she recently had in cardiology clinic. ASSESSMENT/PLAN: 1. CHEST PAIN -history of known coronary artery disease. Now status post revascularization. No additional chest pain overnight. 2. HYPERTENSION - tolerating beta blockade and ARB. Blood pressure well controlled. 3. DYSLIPIDEMIA - continue lipid-lowering agent. Recent FLP in clinic therefore no need to repeat. 4. DIABETES - continue sliding scale. 5. OBESITY - counseled patient on the importance of weight loss. 6. HISTORY OF CIRRHOSIS - stable. 7. HISTORY OF ESOPHAGEAL VARICES - stable without overt bleeding. 8. CAD - now status post revascularization. Exam (Progress Note) - Constitutional Vitals: Period Temp Pulse Resp BP Sys/Benitez Pulse Ox Last 24 Hr 97.5 F-97.9 F 44-81 10-19 71-171/38-88 95-100 Exam: Exam: General: Appears well with no apparent distress. Pleasant and cooperative. Appears comfortable. HEENT: PERRL, normocephalic, atraumatic. Mucous membranes moist. No jaundice noted. Conjunctiva moist and clear, sclerae anicteric Neck: No JVD/HJR, no thyromegaly or lymphadenopathy noted. No carotid bruit appreciated Cardiac: Regular rate and rhythm. No murmur rub or gallop. Chest wall: Tender to light palpation. Symmetrical chest wall movements. Lungs: Clear to auscultation without accessory muscle use to assist the respiratory pattern. Not requiring oxygen. Abdomen: Soft, bowel sounds normoactive. Nontender and nondistended. No abdominal bruit or thrill noted. No masses noted. Extremities: No clubbing, cyanosis noted. No edema noted. Upper extremity pulses 2+. Lower extremity pulses 2+. Capillary refill less than 3 seconds. Right groin soft, free of hematoma or bruit. Skin: No unusual lesions or rashes. No skin breakdown appreciated. Neuro: Awake, alert and oriented 3. Moves all extremities well without hemiparesis or paralysis. No essential tremor is appreciated. Result/EKG - Labs CBC & BMP: 09/19/16 01:00 09/19/16 01:00 Lab Results: I have reviewed the past 24 hour labs Labs: Laboratory Results - last 24 hr 09/18/16 09/18/16 09/18/16 07:26 07:26 07:26 WBC 5.3 RBC 3.93 Hgb 10.1 L Hct 30.5 L MCV 77.6 L MCH 26 L MCHC 33.1 RDW 14.5 Plt Count 122 L MPV 9.2 L Neut % (Auto) 67.1 Lymph % (Auto) 23.2 Alexander % (Auto) 7.4 Eos % (Auto) 1.3 Baso % (Auto) 0.4 Neut # (Auto) 3.5 Lymph # (Auto) 1.2 L Alexander # (Auto) 0.4 Eos # (Auto) 0.1 Baso # (Auto) 0.0 Immature Gran % 0.6 Nucleated RBC % 0.0 Immature Gran # 0.03 Nucleated RBCs # 0.00 INR PT Patient/Control Mix Sodium 142 141 Potassium 4.1 4.0 Chloride 105 104 Carbon Dioxide 30 29 Anion Gap 11.1 12.0 BUN 23 H 24 H Creatinine 1.00 1.00 GFR Calculation 79 79 BUN/Creatinine Ratio 23.00 H 24.00 H Glucose 250 H 256 H POC Glucose Calculated Osmolality 294.1 293.3 Calcium 8.2 L 8.5 Magnesium 2.1 Total Creatine Kinase 71 D CK-MB (CK-2) 2.6 Troponin I < 0.015 Triglycerides 125 Cholesterol 197 LDL Cholesterol 127.0 VLDL Cholesterol 25.0 HDL Cholesterol 50 Heart Disease Risk Ratio 3.94 Free T4 TSH 3rd Generation 09/18/16 09/18/16 09/18/16 07:26 07:26 07:26 WBC RBC Hgb Hct MCV MCH MCHC RDW Plt Count MPV Neut % (Auto) Lymph % (Auto) Alexander % (Auto) Eos % (Auto) Baso % (Auto) Neut # (Auto) Lymph # (Auto) Alexander # (Auto) Eos # (Auto) Baso # (Auto) Immature Gran % Nucleated RBC % Immature Gran # Nucleated RBCs # INR 1.0 PT Patient/Control Mix 10.5 Sodium Potassium Chloride Carbon Dioxide Anion Gap BUN Creatinine GFR Calculation BUN/Creatinine Ratio Glucose POC Glucose Calculated Osmolality Calcium Magnesium Total Creatine Kinase 73 CK-MB (CK-2) 2.5 Troponin I < 0.015 Triglycerides Cholesterol LDL Cholesterol VLDL Cholesterol HDL Cholesterol Heart Disease Risk Ratio Free T4 1.07 TSH 3rd Generation 3.560 09/18/16 09/18/16 09/18/16 07:41 11:15 11:46 WBC RBC Hgb Hct MCV MCH MCHC RDW Plt Count MPV Neut % (Auto) Lymph % (Auto) Alexander % (Auto) Eos % (Auto) Baso % (Auto) Neut # (Auto) Lymph # (Auto) Alexander # (Auto) Eos # (Auto) Baso # (Auto) Immature Gran % Nucleated RBC % Immature Gran # Nucleated RBCs # INR PT Patient/Control Mix Sodium Potassium Chloride Carbon Dioxide Anion Gap BUN Creatinine GFR Calculation BUN/Creatinine Ratio Glucose POC Glucose 272 H 225 H 212 H Calculated Osmolality Calcium Magnesium Total Creatine Kinase CK-MB (CK-2) Troponin I Triglycerides Cholesterol LDL Cholesterol VLDL Cholesterol HDL Cholesterol Heart Disease Risk Ratio Free T4 TSH 3rd Generation 09/18/16 09/18/16 09/18/16 14:37 15:03 16:27 WBC RBC Hgb Hct MCV MCH MCHC RDW Plt Count MPV Neut % (Auto) Lymph % (Auto) Alexander % (Auto) Eos % (Auto) Baso % (Auto) Neut # (Auto) Lymph # (Auto) Alexander # (Auto) Eos # (Auto) Baso # (Auto) Immature Gran % Nucleated RBC % Immature Gran # Nucleated RBCs # INR PT Patient/Control Mix Sodium Potassium Chloride Carbon Dioxide Anion Gap BUN Creatinine GFR Calculation BUN/Creatinine Ratio Glucose POC Glucose 227 H 242 H Calculated Osmolality Calcium Magnesium Total Creatine Kinase 74 CK-MB (CK-2) 2.4 Troponin I 0.039 Triglycerides Cholesterol LDL Cholesterol VLDL Cholesterol HDL Cholesterol Heart Disease Risk Ratio Free T4 TSH 3rd Generation 09/18/16 09/18/16 09/18/16 17:21 17:30 21:30 WBC RBC Hgb 10.4 L Hct 31.1 L MCV MCH MCHC RDW Plt Count MPV Neut % (Auto) Lymph % (Auto) Alexander % (Auto) Eos % (Auto) Baso % (Auto) Neut # (Auto) Lymph # (Auto) Alexander # (Auto) Eos # (Auto) Baso # (Auto) Immature Gran % Nucleated RBC % Immature Gran # Nucleated RBCs # INR PT Patient/Control Mix Sodium Potassium Chloride Carbon Dioxide Anion Gap BUN Creatinine GFR Calculation BUN/Creatinine Ratio Glucose POC Glucose 288 H Calculated Osmolality Calcium Magnesium Total Creatine Kinase 61 CK-MB (CK-2) 1.9 Troponin I 0.059 H D Triglycerides Cholesterol LDL Cholesterol VLDL Cholesterol HDL Cholesterol Heart Disease Risk Ratio Free T4 TSH 3rd Generation 09/18/16 09/19/16 09/19/16 23:26 01:00 01:00 WBC 7.1 D RBC 4.23 Hgb 10.6 L Hct 32.1 L MCV 75.9 L MCH 25 L MCHC 33.0 RDW 14.6 Plt Count 142 MPV 9.5 L Neut % (Auto) 81.6 H Lymph % (Auto) 11.6 L Alexander % (Auto) 5.5 Eos % (Auto) 0.8 Baso % (Auto) 0.1 Neut # (Auto) 5.8 Lymph # (Auto) 0.8 L Alexander # (Auto) 0.4 Eos # (Auto) 0.1 Baso # (Auto) 0.0 Immature Gran % 0.4 Nucleated RBC % 0.0 Immature Gran # 0.03 Nucleated RBCs # 0.00 INR PT Patient/Control Mix Sodium 140 Potassium 4.0 Chloride 106 Carbon Dioxide 25 Anion Gap 13.0 BUN 20 H Creatinine 1.00 GFR Calculation 79 BUN/Creatinine Ratio 20.00 Glucose 247 H POC Glucose Calculated Osmolality 289.4 Calcium 8.3 L Magnesium 2.0 Total Creatine Kinase 53 CK-MB (CK-2) 1.7 Troponin I 0.047 H D Triglycerides Cholesterol LDL Cholesterol VLDL Cholesterol HDL Cholesterol Heart Disease Risk Ratio Free T4 TSH 3rd Generation 09/19/16 01:00 WBC RBC Hgb Hct MCV MCH MCHC RDW Plt Count MPV Neut % (Auto) Lymph % (Auto) Alexander % (Auto) Eos % (Auto) Baso % (Auto) Neut # (Auto) Lymph # (Auto) Alexander # (Auto) Eos # (Auto) Baso # (Auto) Immature Gran % Nucleated RBC % Immature Gran # Nucleated RBCs # INR PT Patient/Control Mix Sodium Potassium Chloride Carbon Dioxide Anion Gap BUN Creatinine GFR Calculation BUN/Creatinine Ratio Glucose POC Glucose Calculated Osmolality Calcium Magnesium Total Creatine Kinase 59 CK-MB (CK-2) 1.6 Troponin I 0.056 H Triglycerides Cholesterol LDL Cholesterol VLDL Cholesterol HDL Cholesterol Heart Disease Risk Ratio Free T4 TSH 3rd Generation - EKG EKG results: interpreted by me EKG shows: sinus rhythm Specialty Discharge - Follow Up or Referrals <Shana Wang - Last Filed: 09/19/16 21:34> Cardiology - PN: Subj Interval history: I have personally interviewed and evaluated the patient, reviewed the chart and discussed medical decision-making with Practitioner Jayme. I have read this note and agree with her documentation here in. Exam (Progress Note) - Constitutional Vitals: Period Temp Pulse Resp BP Sys/Benitez Pulse Ox Last 24 Hr 97.8 F-98.1 F 65-83 13-19 107-154/55-75 93-100 Result/EKG - Labs CBC & BMP: 09/19/16 01:00 09/19/16 01:00 Labs: Laboratory Results - last 24 hr 09/18/16 09/19/16 09/19/16 23:26 01:00 01:00 WBC 7.1 D RBC 4.23 Hgb 10.6 L Hct 32.1 L MCV 75.9 L MCH 25 L MCHC 33.0 RDW 14.6 Plt Count 142 MPV 9.5 L Neut % (Auto) 81.6 H Lymph % (Auto) 11.6 L Alexander % (Auto) 5.5 Eos % (Auto) 0.8 Baso % (Auto) 0.1 Neut # (Auto) 5.8 Lymph # (Auto) 0.8 L Alexander # (Auto) 0.4 Eos # (Auto) 0.1 Baso # (Auto) 0.0 Immature Gran % 0.4 Nucleated RBC % 0.0 Immature Gran # 0.03 Nucleated RBCs # 0.00 Sodium 140 Potassium 4.0 Chloride 106 Carbon Dioxide 25 Anion Gap 13.0 BUN 20 H Creatinine 1.00 GFR Calculation 79 BUN/Creatinine Ratio 20.00 Glucose 247 H POC Glucose Calculated Osmolality 289.4 Calcium 8.3 L Magnesium 2.0 Total Creatine Kinase 53 CK-MB (CK-2) 1.7 Troponin I 0.047 H D 09/19/16 09/19/16 09/19/16 01:00 07:42 08:02 WBC RBC Hgb Hct MCV MCH MCHC RDW Plt Count MPV Neut % (Auto) Lymph % (Auto) Alexander % (Auto) Eos % (Auto) Baso % (Auto) Neut # (Auto) Lymph # (Auto) Alexander # (Auto) Eos # (Auto) Baso # (Auto) Immature Gran % Nucleated RBC % Immature Gran # Nucleated RBCs # Sodium Potassium Chloride Carbon Dioxide Anion Gap BUN Creatinine GFR Calculation BUN/Creatinine Ratio Glucose POC Glucose 230 H Calculated Osmolality Calcium Magnesium Total Creatine Kinase 59 50 CK-MB (CK-2) 1.6 1.6 Troponin I 0.056 H 0.086 H D 09/19/16 09/19/16 09/19/16 10:55 14:55 15:25 WBC RBC Hgb Hct MCV MCH MCHC RDW Plt Count MPV Neut % (Auto) Lymph % (Auto) Alexander % (Auto) Eos % (Auto) Baso % (Auto) Neut # (Auto) Lymph # (Auto) Alexander # (Auto) Eos # (Auto) Baso # (Auto) Immature Gran % Nucleated RBC % Immature Gran # Nucleated RBCs # Sodium Potassium Chloride Carbon Dioxide Anion Gap BUN Creatinine GFR Calculation BUN/Creatinine Ratio Glucose POC Glucose 381 H 262 H Calculated Osmolality Calcium Magnesium Total Creatine Kinase 49 CK-MB (CK-2) 1.6 Troponin I 0.076 H 09/19/16 20:25 WBC RBC Hgb Hct MCV MCH MCHC RDW Plt Count MPV Neut % (Auto) Lymph % (Auto) Alexander % (Auto) Eos % (Auto) Baso % (Auto) Neut # (Auto) Lymph # (Auto) Alexander # (Auto) Eos # (Auto) Baso # (Auto) Immature Gran % Nucleated RBC % Immature Gran # Nucleated RBCs # Sodium Potassium Chloride Carbon Dioxide Anion Gap BUN Creatinine GFR Calculation BUN/Creatinine Ratio Glucose POC Glucose 305 H Calculated Osmolality Calcium Magnesium Total Creatine Kinase CK-MB (CK-2) Troponin I
[2016-09-19 08:20] LABS: Troponin I Only 0.086 NG/ML (0.00-0.045)
[2016-09-19] MEDS: PANTOPRAZOLE 40 MG TABLET PO SCH (08:28)
[2016-09-19] MEDS: INSULIN REGULAR 100 UNIT/ML SUBCUT SCH ×4 (08:29→21:03)
[2016-09-19] MEDS: CLOPIDOGREL 75 MG TABLET PO SCH (08:29)
[2016-09-19] MEDS: PRAVASTATIN 40 MG TABLET PO SCH (08:29)
[2016-09-19] MEDS: INSULIN GLARGINE 100 UNIT/ML SUBCUT SCH ×2 (08:30→21:01)
[2016-09-19] MEDS: VALSARTAN/HCTZ 160-12.5 MG TABLET PO SCH (08:30)
[2016-09-19] MEDS: ASPIRIN EC 81 MG TABLET PO SCH (08:30)
[2016-09-19] MEDS: LINACLOTIDE 145 MCG CAPSULE PO SCH (08:30)
[2016-09-19 15:29] LABS: Troponin I Only 0.076 NG/ML (0.00-0.045)
[2016-09-19] MEDS ORDERED: ACETAMINOPHEN 500 MG TABLET PO ONE (20:48)
[2016-09-19] MEDS: CARVEDILOL 12.5 MG TABLET PO SCH (21:04)
[2016-09-20 06:46] LABS: Basophils % 0.5 % (0.0-0.8); Eosinophils # 0.1 10*3/uL (0.0-0.87); Eosinophils % 1.8 % (0.00-10.9); Hematocrit 29.7 VOL% (35.7-47.0); Hemoglobin 9.7 GM/DL (12.0-16.0); Immature Granulocytes % 0.9 %; Immature Granulocytes Absolute 0.04 #; Lymphocytes # 1.1 10*3/uL (1.4-4.0); Lymphocytes % 26.3 % (21.3-54.2); Mean Corpuscular HGB Conc 32.7 GM/DL (32-36); Mean Corpuscular Hemoglobin 25 PG (27-34); Mean Corpuscular Volume 77.3 FL (87-102); Mean Platelet Volume 9.6 FL (9.6-12.0); Monocytes # 0.5 10*3/uL (0.11-0.8); Monocytes % 10.9 % (1.7-12.7); Neutrophils # 2.6 10*3/uL (1.4-7.4); Neutrophils % 59.6 % (38.7-73.9); Platelet Count 119 T/CUMM (130-400); Red Blood Count 3.84 MC/CUMM (3.8-5.5); Red Cell Distribution Width 14.6 % (9.3-17.3); White Blood Count 4.3 T/CUMM (4-12)
[2016-09-20 07:59] LABS: Calcium 8.7 MG/DL (8.5-10.1); Magnesium 2.1 MG/DL (1.8-2.4); Osmolality,Calculated 289.3 MOS/KG (273-304); Potassium 4.1 MMOL/L (3.5-5.1)
[2016-09-20] MEDS: VALSARTAN/HCTZ 160-12.5 MG TABLET PO SCH (09:07)
[2016-09-20] MEDS: CLOPIDOGREL 75 MG TABLET PO SCH (09:07)
[2016-09-20] MEDS: CARVEDILOL 12.5 MG TABLET PO SCH (09:08)
[2016-09-20] MEDS: INSULIN REGULAR 100 UNIT/ML SUBCUT SCH ×2 (09:08→12:48)
[2016-09-20] MEDS: PANTOPRAZOLE 40 MG TABLET PO SCH (09:08)
[2016-09-20] MEDS: PRAVASTATIN 40 MG TABLET PO SCH (09:08)
[2016-09-20] MEDS: INSULIN GLARGINE 100 UNIT/ML SUBCUT SCH (09:08)
[2016-09-20] MEDS: ASPIRIN EC 81 MG TABLET PO SCH (09:08)
[2016-09-20] MEDS: LINACLOTIDE 145 MCG CAPSULE PO SCH (09:15)
[2016-09-20 11:58] VITALS: BP 142/68
--- NOTE | 2016-09-20 15:40 | Discharge Summary ---
Mehrdad Leon April RN, am scribing for, and in the presence of, Keisha Delacruz NP 15:36. Hospital Course - Hospital Course Hospital Course: Ms. Shipley is a 51 year old female with known history of CAD who was transferred from [facility] with complaints of chest pain. She has cardiac risk factors significant for known history of coronary artery disease, diabetes, hypertension, dyslipidemia, obesity, sedentary lifestyle and family history of coronary artery disease (dad of myocardial infarction in his 40s, mother has coronary stents and both sisters have coronary stents). Patient is a lifetime non-smoker. Patient has past medical history of esophageal varices and anxiety. Patient's last heart catheterization was performed 2011 at [facility]. At that time she received PTCA and stent to mid RCA as well as to the mid segment of the first obtuse marginal artery. She was last seen in the cardiology clinic by Dr. Wang September 12, 2016. She presented with a 2 month history of chest discomfort, progressive in severity and frequency. She also reported worsening dyspnea and easy fatigability. She felt the pain was similar to the pain she had in 2011 when she required stents. At [facility], she was given Nitroglycerin paste which she says did slightly help her chest pain. She was transferred to [facility] and was admitted under our care for further evaluation. Cardiac biomarkers were negative and EKG was unremarkable. Because the pain persisted and she had both typical and atypical symptoms, it was decided that she should have heart catheterization. Heart cath was performed 09/18/16 with the following findings: Impression: 1. Severe single-vessel coronary artery disease with first obtuse marginal artery 80% stenosis. 2. Patent stent in the first obtuse marginal artery distal to the new stenosis. 3. Patent mid right coronary artery stent. 4. Mild to moderate diffuse residual coronary artery disease in the other vessels. 5. Right dominant coronary arteries. 6. ejection fraction 70 %. 4. Angiographically normal right iliac artery without evidence of vascular complications. 5. Successful PCI of the first obtuse marginal artery as described above. 6. The case was complicated by dislodgment of a rebel 3.5 x 16 mm bare-metal stent prior to deployment, and this was successfully positioned and deployed in the proximal circumflex artery. 7. Percutaneous intervention of the first obtuse marginal artery with placement of a rebel 3 x 12 mm bare-metal stent postdilated to 3.5 mm. 8. Deployment of dislodged rebel 3.5 x 16 mm bare-metal stent in the proximal circumflex artery. Ms. Shipley is seen today resting in bed in no acute distress. She reports having tenderness at right groin cath site. Right groin is soft without evidence of bleeding or hematoma. She denies any pain down her leg, pulses are good. Creatinine was 1.00 admission, today is 1.3. We will get this rechecked when she follows up with Dr. Wang. Vital signs been stable, blood pressure 122/68. Telemetry currently shows sinus rhythm with heart rates in the 80s. She has reached maximum benefit from hospitalization and will be discharged home today on her previous home medications and the following cardiac discharge meds as listed below: Cardiac discharge medications include the following: Aspirin 81 mg orally daily Coreg 12.5 mg orally twice daily Plavix 75 mg orally daily (new) Pravastatin 40 mg orally each evening Valsartan/HCT 160/25 1 p.o. daily We will schedule follow-up for her to see Dr. Wang back in 1 week with [facility] and [facility]. - Time spent with patient Time with patient DS: Greater than 30 minutes Diagnosis - Discharge Diagnosis (1) Coronary artery disease Status: Chronic (2) Diabetes Status: Chronic (3) Hypertension Status: Chronic (4) Obesity Status: Chronic (5) Chest pain Status: Resolved Specialty Discharge - Follow Up or Referrals Follow up with: Shana Wang MD [Physician] - 09/27/16 12:30 pm ([facility]) Discharge Plan - Discharge Data Disposition: Disch To Home/Self Care Condition at Discharge: Stable Discharge Diet: heart healthy Activity: other (Post cath expectations) Hygiene: other (Post cath expectations) Weight Bearing at Discharge: other (Post cath expectations) Driving: other (Post cath expectations) Contact your physician if you experience:: fever over 101, Difficulty voiding, Redness or swelling, Nausea/Vomiting, Shortness of breath, Bleeding, pain uncontrolled by pain medications - Discharge Medications New Clopidogrel [Plavix] 75 mg PO DAILY #30 tablet Continue Insulin Aspart [NovoLOG FlexPen] 40 unit SUBCUT TID Aspirin [Ecotrin] 81 mg PO DAILY Ergocalciferol (Vitamin D2) [Vitamin D2] 50,000 unit PO Q7D Linaclotide [Linzess] 145 mcg PO DAILY Furosemide Tab [Lasix Tab] 40 mg PO DAILY Valsartan/Hydrochlorothiazide [Valsartan-Hctz 160-12.5 mg Tab] 1 each PO DAILY Carvedilol [Coreg] 12.5 mg PO BID Insulin Glargine,Hum.rec.anlog [Lantus SoloStar] 50 unit SUBCUT BID Changed Pravastatin Sodium 40 mg PO BEDTIME #0 Discontinued cefUROXime axetil [Cefuroxime] 250 mg PO BID - Follow Up or Referral Follow Up: Shana Wang MD [Physician] - 09/27/16 12:30 pm (BMP mag CBC) - Forms/Instructions Instructions: Left Heart Catheterization (DC), Heart Healthy Diet (GEN), Coronary Intravascular Stent Placement, Machine Cloth Measurer (GEN) Exam - Constitutional Vitals: Period Temp Pulse Resp BP Sys/Benitez Pulse Ox Last 24 Hr 97.1 F-98 F 68-75 18-22 111-142/56-69 92-95 General appearance: no acute distress, morbidly obese - Head Head exam: Absent: abrasion, hematoma - Eye Eye exam: Absent: periorbital swelling, laceration to eyelids - Neck Neck exam: Absent: tenderness - Respiratory Respiratory exam: Present: clear to auscultation bilaterally. Absent: accessory muscle use, chest wall tenderness - Cardiovascular Cardiovascular exam: Present: regular rate and rhythm. Absent: rubs - GI/Abdominal GI/Abdominal exam: Present: normal bowel sounds, soft. Absent: distended, tenderness - Extremities Exam Extremities exam: Present: other (Right groin without evidence of bleeding or hematoma). Absent: calf tenderness, edema - Back Exam Back exam: Absent: muscle spasm, vertebral tenderness - Neurological Exam Neurological exam: Present: alert, oriented X3 - Psychiatric Psychiatric exam: Present: normal affect, normal mood - Skin Skin exam: Present: warm, dry Discharge Results Labs on day of discharge: Labs from last 24 hours 09/20/16 09/20/16 09/20/16 15:54 11:30 07:12 WBC RBC Hgb Hct MCV MCH MCHC RDW Plt Count MPV Neut % (Auto) Lymph % (Auto) Randall % (Auto) Eos % (Auto) Baso % (Auto) Neut # (Auto) Lymph # (Auto) Randall # (Auto) Eos # (Auto) Baso # (Auto) Immature Gran % Nucleated RBC % Immature Gran # Nucleated RBCs # Sodium Potassium Chloride Carbon Dioxide Anion Gap BUN Creatinine GFR Calculation BUN/Creatinine Ratio Glucose POC Glucose 367 H 367 H 227 H Calculated Osmolality Calcium Magnesium 09/20/16 09/20/16 09/19/16 07:00 04:00 20:25 WBC 4.3 D RBC 3.84 Hgb 9.7 L Hct 29.7 L MCV 77.3 L MCH 25 L MCHC 32.7 RDW 14.6 Plt Count 119 L MPV 9.6 Neut % (Auto) 59.6 Lymph % (Auto) 26.3 Randall % (Auto) 10.9 Eos % (Auto) 1.8 Baso % (Auto) 0.5 Neut # (Auto) 2.6 Lymph # (Auto) 1.1 L Randall # (Auto) 0.5 Eos # (Auto) 0.1 Baso # (Auto) 0.0 Immature Gran % 0.9 Nucleated RBC % 0.0 Immature Gran # 0.04 Nucleated RBCs # 0.00 Sodium 141 Potassium 4.1 Chloride 104 Carbon Dioxide 29 Anion Gap 12.1 BUN 22 H Creatinine 1.30 H GFR Calculation 58 BUN/Creatinine Ratio 16.00 Glucose 211 H POC Glucose 305 H Calculated Osmolality 289.3 Calcium 8.7 Magnesium 2.1 09/19/16 19:21 WBC RBC Hgb Hct MCV MCH MCHC RDW Plt Count MPV Neut % (Auto) Lymph % (Auto) Randall % (Auto) Eos % (Auto) Baso % (Auto) Neut # (Auto) Lymph # (Auto) Randall # (Auto) Eos # (Auto) Baso # (Auto) Immature Gran % Nucleated RBC % Immature Gran # Nucleated RBCs # Sodium Potassium Chloride Carbon Dioxide Anion Gap BUN Creatinine GFR Calculation BUN/Creatinine Ratio Glucose POC Glucose 276 H Calculated Osmolality Calcium Magnesium - Imaging and Cardiology Cardiology Procedure: report reviewed by me DS: Provider Consults: 09/18/16 01:17 Consult to Pastoral Services [CONS] Routine Comment: Pastoral Screen: Request Licensed Embalmer Visit 09/18/16 14:28 Consult to Cardiac Rehabilitation [CONS] Routine Reason for Cardiac Rehabilitation: Risk Factor Modification Expected date of discharge: 09/20/16 Jayme Leon Bonnie E, NP, personally performed the services described in this documentation, ascribed by Cronin,Ashanti, RN in my presence, and it is both accurate and complete 539 .
== END 2016-09-20 16:09 | disposition home or self-care (01) ==
LOC: EDUNIT# → N.ED 21:28 → N.EDINP 22:17 → INTOOBSV 22:17 → N.TELEN 22:45 → N.ICU 09-18 12:46 → N.TELES 09-19 13:56
PROVIDERS: ADMIT Internal Medicine Cardiovascular Disease; ATTEND Internal Medicine Cardiovascular Disease
PROC: CLCCHCL (ICD-10-PCS; 2016-09-18 12:15)

== ENCOUNTER 2016-11-01 20:45 | Inpatient (IN) ==
[2016-11-01] MEDS ORDERED: NITROGLYCERIN 2% OINT 1 INCH/GM PACK TOP STA (21:35)
[2016-11-01] MEDS ORDERED: METOCLOPRAMIDE 10 MG/2 ML VIAL IV STA (21:35)
[2016-11-01] MEDS ORDERED: METOPROLOL TARTRATE 5 MG/5 ML VIAL IV STA (21:35)
[2016-11-01] MEDS ORDERED: ONDANSETRON 4 MG/2 ML VIAL IV STA (21:35)
[2016-11-01] MEDS ORDERED: ASPIRIN 325 MG TABLET PO STA (21:35)
[2016-11-01] MEDS ORDERED: PANTOPRAZOLE 40 MG VIAL IV STA (21:38)
--- NOTE | 2016-11-01 21:41 | EKG Report ---
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
--- NOTE | 2016-11-01 21:41 | Emergency Department Note ---
Arrival - Arrival Chief Complaint: Chest Pain Stated Complaint: CHEST PAINS ED Nursing Triage Note: ambulatory to er with complaint of chest pain since 10/31. states has had intermittent chest pains since yesterday that radiates through to her back and down to her left arm. states she has had shortness of breath with the pain but normally has period of shortness of breath. Mode of Arrival: Ambulatory Limitations: No Limitations Source: Patient Time Seen by Provider: 11/01/16 21:35 - History of Present Illness HPI Narrative: This 51-year-old white female presents with 2 days of steady left chest pain with pain directed towards the left shoulder and into the back. Associated with this she has had some shortness of breath and nausea but no alexa vomiting or diaphoresis. She is status post stenting per Dr. Wang on 09/18 and had done well up until the last 2 days. The patient denies any particular complaints of cough, pleuritic type pain, heartburn, belching, or indigestion. Of note she does have a low-grade fever. Currently she appears fairly stable. Onset (ago): day(s) (Patient presents 2 days post onset of symptoms) Date of Last Menstrual Period: hysterectomy Allergies/Adverse Reactions: Allergies Allergy/AdvReac Type Severity Reaction Status Date / Time codeine Allergy RASH Verified 05/15/16 14:14 Hydromorphone [From Dilaudid] Allergy Verified 05/15/16 14:14 morphine Allergy RASH Verified 05/15/16 14:14 steroids AdvReac Unknown/Unable Uncoded 05/15/16 14:14 to obtain Home Medications: Home Medications Medication Instructions Recorded Confirmed Type Aspirin [Ecotrin] 81 mg PO DAILY 05/15/16 09/17/16 History Carvedilol [Coreg] 12.5 mg PO BID 05/15/16 09/17/16 History Ergocalciferol (Vitamin D2) 50,000 unit PO Q7D 05/15/16 09/17/16 History [Vitamin D2] Furosemide Tab [Lasix Tab] 40 mg PO DAILY 05/15/16 09/17/16 History Insulin Aspart [NovoLOG FlexPen] 40 unit SUBCUT TID 05/15/16 09/17/16 History Insulin Glargine,Hum.rec.anlog 50 unit SUBCUT BID 05/15/16 09/17/16 History [Lantus SoloStar] Linaclotide [Linzess] 145 mcg PO DAILY 05/15/16 09/17/16 History Valsartan/Hydrochlorothiazide 1 each PO DAILY 05/15/16 09/17/16 History [Valsartan-Hctz 160-12.5 mg Tab] Clopidogrel [Plavix] 75 mg PO DAILY #30 tablet 09/20/16 Rx Pravastatin Sodium 40 mg PO BEDTIME #0 09/20/16 09/17/16 Rx Review of System - Review of System 12 point system: reviewed and no additional remarkable complaints except as stated - Review of System Constitutional: Present: as per HPI Respiratory: Present: as per HPI Cardiovascular: Present: as per HPI Gastrointestinal: Present: as per HPI Medical,Surgical,& Family Hx - Medical History Cardio: History of: CAD, Hypertension Psychological: History of: Anxiety Disorders Neurology: History of: Multiple Sclerosis No history of: Seizures Endocrine: History of: Diabetes Mellitus (IDDM), Diabetes Mellitus (NIDDM), Dyslipidemia Rheumatology: History of;: Fibromyalgia Gastrointestinal: History of: Esophageal Varices, Liver Problems (cirrohosis) - Surgical History Cardiac Surgeries: Sugical HX of: Cardiac Catheterization (stent x 4) - Family History Family History: Reports;: Family Heart Disease - Social History Smoking Status: Never smoker Frequency of Alcohol Use: None Type of Drug Use: None Exam Physical Examination: GENERAL: Obese white female in no acute distress. HEENT: Normocephalic. No trauma. Moist mucous membranes. EOMI. PERRLA. ENT NML NECK: Supple. No adenopathy. CARDIAC: Regular. No murmurs. Heart rate 84 O2 sat 90% CHEST: Clear to auscultation. No respiratory distress. ABDOMEN: Soft. Nontender. Active bowel sounds. EXTREMITIES: No trauma. Normal ROM. No pedal edema. SKIN: No diaphoresis. No rash. NEURO: Alert. Neuro intact no focal deficits. Vital Signs: Vital Signs Temperature 99.6 F 11/01/16 20:52 Pulse Rate 84 11/01/16 20:52 Respiratory Rate 20 11/01/16 20:52 Blood Pressure 182/86 11/01/16 20:52 O2 Sat by Pulse Oximetry 98 11/01/16 20:52 Course - Reevaluation(s) Reevaluation #1: Discussed with patient the results of her studies which would indicate she is having some cardiac necrosis. - Consultations Consultation #1: Discussed with Dr. Weiner who will admit for Dr. Keenan. Results - Labs CBC & BMP: 11/01/16 21:53 Labs: I have reviewed the laboratory noted the significant abnormalities of cardiac's. - Impressions EKG: Sinus rhythm at [address] interval and QRS duration. Diffuse ST wave changes but no evidence of acute injury. - Diagnostic Findings Procedure: Chest x-ray: image reviewed by me, report reviewed by me (Chest x- ray clear) Disposition Clinical Impression: Abnormal cardiac enzymes, Small infarct, Recent catheterization with stenting, Morbid obesity Case discussed with: patient, patient's family Disposition: Still a Patient Condition: Guarded Time of Disposition: 23:17
--- NOTE | 2016-11-01 22:15 | XRay Report ---
History: Chest pain Date: 11/01/2016 Study: Chest x-ray AP portable Comparison exam: May 15, 2016 chest x-ray The cardiac silhouette is not enlarged. There is no mediastinal mass. The pulmonary vasculature is not engorged. The exam was performed in shallow inspiration. The lungs and pleural spaces are generally clear. There is no acute osseous abnormality. Impression: Shallow inspiration. No acute cardiopulmonary process PROCEDURE INTERPRETED AT [facility] DEPARTMENT OF RADIOLOGY Final Report Signed by: Dr. Gabby Mcmahon
[2016-11-01 22:37] LABS: Apearance,Urine CLEAR (Clear); Bacteria,Urine Few /HPF (Few); Bilirubin,Urine Negative (Negative); Blood, Urine Moderate mg/dL (Negative); Glucose,Urine (UA) >=500 mg/dL (Negative); Ketones,Urine Negative (Negative); Nitrite,Urine Negative (Negative); Protein,Urine 100 MG/DL; RBC,Urine 4 /HPF (0-4); Squamous Epithelial Cell,Urine Occasional /HPF (0-10); Urine Color Straw (Yellow); Urine Urobilinogen < 2.0 EU/DL (0.2-1.0); WBC,Urine 9 /HPF (0-6)
[2016-11-01 22:43] LABS: Barbiturates Screen,Urine Negative (Negative); Benzodiazepines Screen,Urine Negative (Negative); Cannabinoid Screen,Urine Negative (Negative); Opiate Screen,Urine Negative (Negative); Phencyclidine Screen,Urine Negative (Negative)
[2016-11-01 22:49] LABS: PT Patient Result 10.1 SECS; Partial Thromboplastin Time 25.9 SECS (0-40)
[2016-11-01 22:51] LABS: Alanine Aminotransferase 39 U/L (13-56); Albumin 3.4 G/DL (3.4-5.0); Alkaline Phosphatase 126 U/L (45-117); Aspartate Amino Transferase 41 U/L (0-37); Bilirubin,Total < 0.39 MG/DL (0.2-1.0); Blood Urea Nitrogen 20 MG/DL (7-18); CKMB % 4.4 %; Glucose 301 MG/DL (74-106); Magnesium 2.1 MG/DL (1.8-2.4); Osmolality,Calculated 288.7 MOS/KG (273-304); Potassium 4.2 MMOL/L (3.5-5.1); Sodium 138 MMOL/L (136-145); Total Protein 6.8 G/DL (6.4-8.3)
[2016-11-01] MEDS ORDERED: CLOPIDOGREL 75 MG TABLET PO STA (23:04)
[2016-11-01] MEDS ORDERED: ENOXAPARIN 100 MG/ML SYRINGE SUBCUT STA (23:04)
[2016-11-01] MEDS ORDERED: INSULIN GLARGINE 100 UNIT/ML SUBCUT STA (23:19)
[2016-11-01] MEDS ORDERED: hydrALAZINE 20 MG/1 ML VIAL IV PRN (23:30)
[2016-11-02] MEDS ORDERED: METOPROLOL TARTRATE 5 MG/5 ML VIAL IV PRN (01:47)
[2016-11-02 02:42] LABS: Basophils % 0.3 % (0.0-0.8); Eosinophils # 0.1 10*3/uL (0.0-0.87); Eosinophils % 1.4 % (0.00-10.9); Hematocrit 30.7 VOL% (35.7-47.0); Hemoglobin 10.1 GM/DL (12.0-16.0); Immature Granulocytes % 0.5 %; Immature Granulocytes Absolute 0.03 #; Lymphocytes # 1.4 10*3/uL (1.4-4.0); Lymphocytes % 23.4 % (21.3-54.2); Mean Corpuscular HGB Conc 32.9 GM/DL (32-36); Mean Corpuscular Hemoglobin 25 PG (27-34); Mean Corpuscular Volume 75.2 FL (87-102); Mean Platelet Volume 10.3 FL (9.6-12.0); Monocytes # 0.5 10*3/uL (0.11-0.8); Neutrophils # 3.8 10*3/uL (1.4-7.4); Neutrophils % 65.4 % (38.7-73.9); Platelet Count 155 T/CUMM (130-400); Red Blood Count 4.08 MC/CUMM (3.8-5.5); Red Cell Distribution Width 14.3 % (9.3-17.3); White Blood Count 5.8 T/CUMM (4-12)
[2016-11-02 03:02] LABS: CKMB % 5.3 %
[2016-11-02 03:03] LABS: Troponin I Only 5.39 NG/ML (0.00-0.045)
[2016-11-02 03:07] LABS: Calcium 8.6 MG/DL (8.5-10.1); Osmolality,Calculated 289.7 MOS/KG (273-304); Potassium 3.9 MMOL/L (3.5-5.1)
[2016-11-02] MEDS ORDERED: METOPROLOL TARTRATE 5 MG/5 ML VIAL IV SCH (04:00)
--- NOTE | 2016-11-02 07:14 | EKG Report ---
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
--- NOTE | 2016-11-02 07:44 | Cardiology History & Physical ---
Assessment and Plan - Time spent with patient Time spent with patient: Greater than 30 minutes (1) NSTEMI (non-ST elevated myocardial infarction) Status: Acute Assessment and plan: SEE PLAN OF CARE LISTED BELOW Current Visit: Yes (2) CAD (coronary artery disease) Status: Chronic Assessment and plan: SEE PLAN OF CARE LISTED BELOW Current Visit: Yes Qualifiers: Coronary Disease-Associated Artery/Lesion type: quechan artery [place] vs. transplanted heart: quechan heart Associated angina: with stable angina Qualified Code(s): I25.118 - Atherosclerotic heart disease of quechan coronary artery with other forms of angina pectoris (3) Diabetes Status: Chronic Assessment and plan: SEE PLAN OF CARE LISTED BELOW Current Visit: No (4) Hypertension Status: Chronic Assessment and plan: SEE PLAN OF CARE LISTED BELOW Current Visit: No (5) Dyslipidemia Status: Chronic Assessment and plan: SEE PLAN OF CARE LISTED BELOW Current Visit: No (6) Esophageal varices Status: Chronic Assessment and plan: SEE PLAN OF CARE LISTED BELOW Current Visit: No (7) Cirrhosis Status: Chronic Assessment and plan: SEE PLAN OF CARE LISTED BELOW Current Visit: No Qualifiers: Ascites presence: without ascites (8) Obesity Status: Chronic Assessment and plan: SEE PLAN OF CARE LISTED BELOW Current Visit: No History of Present Illness Chief complaint: Chest pain, known coronary artery disease History of present illness: 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 Shana Wang. She was last seen in cardiology clinic September 27, 2016. Risk factors include: Known severe coronary artery disease, hypertension, dyslipidemia, diabetes, obesity, sedentary lifestyle, family history of premature CAD (dad of [place] in his 40s, mother and sisters have stents). History of nonbleeding esophageal varices and cirrhosis of the liver (stable), anemia, anxiety. Last cardiac catheterization occurred 09/18/2016 with the following noted: Impression: 1. Severe single-vessel coronary artery disease with first obtuse marginal artery 80% stenosis. 2. Patent stent in the first obtuse marginal artery distal to the new stenosis. 3. Patent mid right coronary artery stent. 4. Mild to moderate diffuse residual coronary artery disease in the other vessels. 5. Right dominant coronary arteries. 6. ejection fraction 70 %. 7. Angiographically normal right iliac artery without evidence of vascular complications. 8. Successful PCI of the first obtuse marginal artery as described above. 9. The case was complicated by dislodgment of a rebel 3.5 x 16 mm bare-metal stent prior to deployment, and this was successfully positioned and deployed in the proximal circumflex artery. Also, history of PCI to OM1, PCI to RCA June 2011 at [place] [facility] Patient has been feeling poorly over the past several days, fatigued, easily short of breath with exertion. Yesterday, while walking, she began to experience chest pressure in the center of her chest which radiated to her left shoulder. This was associated with diaphoresis, shortness of breath. This occurred intermittently approximately 4 hours until she felt as if she should be evaluated in the ED of [facility] where she received nitroglycerin. Chest discomfort was rated as a 7 on a scale of 1-10. She is currently chest pain- free. Walking triggered the discomfort, rest and nitroglycerin relieved the discomfort. Cardiac biomarkers reveal troponin noted to be 4.530 - 5.390, EKG with ST depression V4, V5 and V6. She has received Aspirin, Plavix, Lovenox, beta-blockade, statin and nitrates. I will keep patient NPO and discuss with Dr. Weiner, await additional recommendations. ASSESSMENT/PLAN: 1. NSTEMI - currently chest pain-free. NPO for possible LHC today 2. KNOWN CAD - see [facility] report listed above. 3. HYPERTENSION - usually well-controlled 4. DYSLIPIDEMIA - continue lipid lowering agent 5. DIABETES - brittle diabetic. Continue home regimen. Holding Valsartan this morning until after LHC 6. HISTORY OF ESOPHAGEAL VARICES, CIRRHOSIS - Stable. [facility]Y at [facility] and has been stable for several years without bleeding 7. ANEMIA - continue home medication of iron. Stable. Home Medications Medication Instructions Recorded Confirmed Type Aspirin [Ecotrin] 81 mg PO DAILY 05/15/16 11/02/16 History Carvedilol [Coreg] 12.5 mg PO BID 05/15/16 11/02/16 History Ergocalciferol (Vitamin D2) 50,000 unit PO Q7D 05/15/16 11/02/16 History [Vitamin D2] Furosemide Tab [Lasix Tab] 20 mg PO DAILY 05/15/16 11/02/16 History Insulin Aspart [NovoLOG FlexPen] 40 unit SUBCUT TID 05/15/16 11/02/16 History Insulin Glargine,Hum.rec.anlog 50 unit SUBCUT BID 05/15/16 11/02/16 History [Lantus SoloStar] Linaclotide [Linzess] 145 mcg PO DAILY 05/15/16 11/02/16 History Clopidogrel [Plavix] 75 mg PO DAILY #30 tablet 09/20/16 11/02/16 Rx Pravastatin Sodium 40 mg PO BEDTIME #0 09/20/16 11/02/16 Rx Ferrous Sulfate [Iron] 325 mg PO DAILY 11/02/16 11/02/16 History Valsartan [Diovan] 80 mg PO DAILY 11/02/16 11/02/16 History Allergies Allergy/AdvReac Type Severity Reaction Status Date / Time codeine Allergy RASH Verified 05/15/16 14:14 Hydromorphone [From Dilaudid] Allergy Verified 05/15/16 14:14 meperidine [From Demerol] Allergy Verified 11/02/16 01:58 morphine Allergy RASH Verified 05/15/16 14:14 steroids AdvReac Unknown/Unable Uncoded 05/15/16 14:14 to obtain Review of systems: REVIEW OF SYSTEMS: - Constitutional Constitutional: Present: Fatigue, near syncope. Absent: syncope, anorexia, night sweats - EENT Eyes: Absent: blurry vision, loss of vision, diplopia Ears: Absent: decreased hearing, ear pain, ear discharge - Cardiovascular Cardiovascular: Present: chest pain with exertion, dyspnea on exertion. No edema, palpitations. Absent: chest pain with deep breath, claudication - Respiratory Respiratory: Present: KEVIN, denies cough. Absent: wheezing, hemoptysis, change in phlegm color - Gastrointestinal Gastrointestinal: Denies: constipation. Absent: abdominal pain, hematemesis, hematochezia, melena, change in bowel habits, nausea - Genitourinary Genitourinary: Absent: difficulty urinating, dysuria, urinary hesitancy, flank pain - Musculoskeletal Musculoskeletal: Present: Chronic left shoulder and back pain Absent: joint swelling, muscle cramps, muscle weakness - Neurological Neurological: Present: normal gait without frequent falls. Absent: dizziness, hemiparesis - Psychiatric Psychiatric: Anxiety, history of. Absent: depression, difficulty concentrating - Endocrine Endocrine: Present: fatigue. Absent: cold intolerance, heat intolerance, polyuria, polyphagia, polydipsia - Hematologic/Lymphatic Hematologic/Lymphatic: Present: easy bruising. Absent: easy bleeding -Integumentary Integumentary: Absent: lesions, rashes, skin breakdown Medical,Surgical,& Family Hx - Medical History Cardio: History of: CAD, Hypertension Psychological: History of: Anxiety Disorders Neurology: History of: Multiple Sclerosis No history of: Seizures Endocrine: History of: Diabetes Mellitus (IDDM), Diabetes Mellitus (NIDDM), Dyslipidemia Rheumatology: History of;: Fibromyalgia Gastrointestinal: History of: Esophageal Varices, Liver Problems (cirrohosis) - Surgical History Cardiac Surgeries: Sugical HX of: Cardiac Catheterization (stent x 4) - Family History Family History: Reports;: Family Heart Disease - Social History Smoking Status: Never smoker Have you smoked in the last 12 months: No Frequency of Alcohol Use: None Type of Drug Use: None Marital Status: Lives With:: Spouse Functional capacity: independent ambulation Cardiology Physical Exam - Constitutional Vitals: Vital Signs Temp Pulse Resp BP Pulse Ox 97.4 F L 72 16 103/52 95 11/02/16 03:35 11/02/16 03:35 11/02/16 03:35 11/02/16 03:35 11/02/16 03:35 Intake and Output 11/01/16 11/01/16 11/02/16 15:59 23:59 07:59 Intake Total 0 / 0 Balance 0 / 0 Intake: Oral 0 / 0 Other: Weight 99.79 kg 101.65 kg Patient Weight 11/02/16 23:59 Weight 101.65 kg Exam: General: [Appears well with no apparent distress.] [Pleasant and cooperative. ] [Appears comfortable.] HEENT: [PERRL, normocephalic, atraumatic. Mucous membranes moist. No jaundice noted. Conjunctiva moist and clear, sclerae anicteric] Neck: No JVD/HJR, no thyromegaly or lymphadenopathy noted. No carotid bruit appreciated Cardiac: [Regular rate and rhythm.] [No murmur rub or gallop.] Lungs: [Clear to auscultation without accessory muscle use to assist the respiratory pattern.] Using oxygen intermittently Abdomen: Soft, bowel sounds normoactive. Nontender and nondistended. No abdominal bruit or thrill noted. No masses noted. Musculoskeletal: No fluid collection. Decreased range of motion is noted. Extremities: No clubbing, cyanosis noted. [ No edema noted.] Upper extremity pulses 2+. Lower extremity pulses 2+. Capillary refill less than 3 seconds. Skin: No unusual lesions or rashes. No skin breakdown appreciated. Neuro: Awake, alert and oriented 3. Moves all extremities well without hemiparesis or paralysis. No essential tremor is appreciated. Result/EKG - Labs CBC & BMP: 11/02/16 01:48 11/02/16 01:48 Lab Results: I have reviewed the past 24 hour labs Labs: Laboratory Results - last 24 hr 11/01/16 11/01/16 11/01/16 21:53 21:53 21:53 WBC RBC Hgb Hct MCV MCH MCHC RDW Plt Count MPV Neut % (Auto) Lymph % (Auto) [place] % (Auto) Eos % (Auto) Baso % (Auto) Neut # (Auto) Lymph # (Auto) [place] # (Auto) Eos # (Auto) Baso # (Auto) Immature Gran % Nucleated RBC % Immature Gran # Nucleated RBCs # INR 1.0 PT Patient/Control Mix 10.1 Circ Anticoag PTT 25.9 Sodium 138 Potassium 4.2 Chloride 102 Carbon Dioxide 27 Anion Gap 13.2 BUN 20 H Creatinine 1.10 H GFR Calculation 70 BUN/Creatinine Ratio 18.00 Glucose 301 H Calculated Osmolality 288.7 Calcium 9.0 Magnesium 2.1 Total Bilirubin < 0.39 AST 41 H ALT 39 Alkaline Phosphatase 126 H Total Creatine Kinase 267 H CK-MB (CK-2) 11.8 H CK and CKMB Interp 4.4 Troponin I 4.530 H B-Natriuretic Peptide Total Protein 6.8 Albumin 3.4 Globulin 3.4 Albumin/Globulin Ratio 1.0 L Urine Color Straw Urine Appearance Clear Urine pH 5.0 Ur Specific [place] 1.010 Urine Protein 100 Urine Glucose (UA) >=500 Urine Ketones Negative Urine Blood Moderate Urine Nitrate Negative Urine Bilirubin Negative Urine Urobilinogen < 2.0 H Urine Leukocytes Small H Urine RBC 4 Urine WBC 9 Ur Squamous Epith Cells Occasional Urine Bacteria Few Ur Culture Indicated? Results to follow Urine Opiates Screen Ur Barbiturates Screen Ur Phencyclidine Scrn U Amphetamine/Methamph U Benzodiazepines Scrn U Cocaine Metab Screen U Cannabinoids Screen 11/01/16 11/01/16 11/02/16 21:53 21:53 01:48 WBC RBC Hgb Hct MCV MCH MCHC RDW Plt Count MPV Neut % (Auto) Lymph % (Auto) [place] % (Auto) Eos % (Auto) Baso % (Auto) Neut # (Auto) Lymph # (Auto) [place] # (Auto) Eos # (Auto) Baso # (Auto) Immature Gran % Nucleated RBC % Immature Gran # Nucleated RBCs # INR PT Patient/Control Mix Circ Anticoag PTT Sodium Potassium Chloride Carbon Dioxide Anion Gap BUN Creatinine GFR Calculation BUN/Creatinine Ratio Glucose Calculated Osmolality Calcium Magnesium Total Bilirubin AST ALT Alkaline Phosphatase Total Creatine Kinase 259 H CK-MB (CK-2) 13.8 H CK and CKMB Interp 5.3 Troponin I 5.390 H B-Natriuretic Peptide 172 H Total Protein Albumin Globulin Albumin/Globulin Ratio Urine Color Urine Appearance Urine pH Ur Specific [place] Urine Protein Urine Glucose (UA) Urine Ketones Urine Blood Urine Nitrate Urine Bilirubin Urine Urobilinogen Urine Leukocytes Urine RBC Urine WBC Ur Squamous Epith Cells Urine Bacteria Ur Culture Indicated? Urine Opiates Screen Negative Ur Barbiturates Screen Negative Ur Phencyclidine Scrn Negative U Amphetamine/Methamph Negative U Benzodiazepines Scrn Negative U Cocaine Metab Screen Negative U Cannabinoids Screen Negative 11/02/16 11/02/16 01:48 01:48 WBC 5.8 RBC 4.08 Hgb 10.1 L Hct 30.7 L MCV 75.2 L MCH 25 L MCHC 32.9 RDW 14.3 Plt Count 155 MPV 10.3 Neut % (Auto) 65.4 Lymph % (Auto) 23.4 [place] % (Auto) 9.0 Eos % (Auto) 1.4 Baso % (Auto) 0.3 Neut # (Auto) 3.8 Lymph # (Auto) 1.4 [place] # (Auto) 0.5 Eos # (Auto) 0.1 Baso # (Auto) 0.0 Immature Gran % 0.5 Nucleated RBC % 0.0 Immature Gran # 0.03 Nucleated RBCs # 0.00 INR PT Patient/Control Mix Circ Anticoag PTT Sodium 138 Potassium 3.9 Chloride 101 Carbon Dioxide 28 Anion Gap 12.9 BUN 21 H Creatinine 1.10 H GFR Calculation 70 BUN/Creatinine Ratio 19.00 Glucose 323 H Calculated Osmolality 289.7 Calcium 8.6 Magnesium Total Bilirubin AST ALT Alkaline Phosphatase Total Creatine Kinase CK-MB (CK-2) CK and CKMB Interp Troponin I B-Natriuretic Peptide Total Protein Albumin Globulin Albumin/Globulin Ratio Urine Color Urine Appearance Urine pH Ur Specific [place] Urine Protein Urine Glucose (UA) Urine Ketones Urine Blood Urine Nitrate Urine Bilirubin Urine Urobilinogen Urine Leukocytes Urine RBC Urine WBC Ur Squamous Epith Cells Urine Bacteria Ur Culture Indicated? Urine Opiates Screen Ur Barbiturates Screen Ur Phencyclidine Scrn U Amphetamine/Methamph U Benzodiazepines Scrn U Cocaine Metab Screen U Cannabinoids Screen - Diagnostic Findings Procedure: Chest x-ray: report reviewed by me - EKG EKG results: interpreted by me EKG shows: sinus rhythm Quality Measures - Stroke Onset of Symptoms Date: 10/31/16 Onset of Symptoms Time: 15:00
[2016-11-02] MEDS ORDERED: ERGOCALCIFEROL 50,000 UNIT CAPSULE PO SCH (08:00)
[2016-11-02] MEDS: ASPIRIN EC 81 MG TABLET PO SCH (08:51)
[2016-11-02] MEDS: NITROGLYCERIN 2% OINT 1 INCH/GM PACK TOP SCH ×3 (08:51→21:34)
[2016-11-02] MEDS: FERROUS SULFATE 325 MG TABLET PO SCH (08:51)
[2016-11-02] MEDS ORDERED: ENOXAPARIN 100 MG/ML SYRINGE SUBCUT SCH (09:00)
[2016-11-02] MEDS ORDERED: CLOPIDOGREL 75 MG TABLET PO SCH (09:00)
[2016-11-02] MEDS ORDERED: CARVEDILOL 12.5 MG TABLET PO SCH (09:00)
[2016-11-02] MEDS: INSULIN ASPART PROTAMINE/ASPART 70/30 100 UNIT/ML SUBCUT SCH ×3 (09:07→16:04)
[2016-11-02] MEDS: INSULIN LISPRO 100 UNIT/ML SUBCUT SCH ×3 (09:07→20:42)
[2016-11-02] MEDS: INSULIN GLARGINE 100 UNIT/ML SUBCUT SCH ×2 (09:07→20:44)
[2016-11-02] MEDS: FUROSEMIDE 20 MG TABLET PO SCH (09:08)
[2016-11-02] MEDS: LINACLOTIDE 145 MCG CAPSULE PO SCH (09:08)
[2016-11-02] MEDS: ONDANSETRON 4 MG/2 ML VIAL IV PRN ×2 (09:47→14:37)
--- NOTE | 2016-11-02 10:33 | History and Physical Update ---
Sedation H&P Update - History and Physical H&P was reviewed, the patient examined and there: are no changes in the patients condition since last H&P was completed. - Dictation Physical: refer to H&P completed by admitting physician - Physical Exam Mental Status: alert and oriented Heart: regular rate and rhythm Lung: clear to auscultation Abdomen: within normal limits Vitals: within normal limits - Sedation Plan for Sedation: minimal Patient Consent: Procedure disscussed with patient and patinet has consented., Risks and benefits were discussed with patient,including infection, (Left heart cath and possible PTCA or stent were discussed with the patient. The risk of the procedure include but are not limited to a small risk of injury to the vessel, abnormal heart rhythm, stroke, heart attack, need for emergent surgery, contrast reaction, restenosis, or . The patient voices understanding, agrees with the plan, and desires to proceed with the heart catheterization.), bleeding,injury to surrounding structures, seizure, temporary nerve, Patient understands and accepts potential risks/benefits and agrees to, proceed. ASA Class: II Airway Assessment: Class III: Soft palate, base of uvula visible
[2016-11-02] MEDS ORDERED: LIDOCAINE 1% 20 ML VIAL ONE (10:38)
[2016-11-02] MEDS ORDERED: diphenhydrAMINE 50 MG/1 ML VIAL ONE (10:44)
[2016-11-02] MEDS ORDERED: ATROPINE 1 MG/1 ML VIAL ONE (10:44)
[2016-11-02] MEDS ORDERED: MIDAZOLAM 2 MG/2 ML VIAL ONE (10:45)
[2016-11-02] MEDS ORDERED: fentaNYL 100 MCG/2 ML VIAL ONE (11:04)
[2016-11-02] MEDS ORDERED: TICAGRELOR 90 MG TABLET ONE (11:34)
[2016-11-02] MEDS ORDERED: GLUCAGON 1 MG VIAL IM PRN (11:44)
[2016-11-02] MEDS ORDERED: ACETAMINOPHEN 325 MG TABLET PO PRN (11:44)
[2016-11-02] MEDS ORDERED: DEXTROSE 50% 25 GM/50 ML VIAL IV PRN (11:44)
--- NOTE | 2016-11-02 11:55 | Operative Note ---
Date of procedure: 11/02/16 Procedure Preformed: Left heart cath Coronary angiography Left ventriculography Angiogram of the left femoral artery Loading with Brilinta, 180 mg p.o. Angio-Seal of the left femoral artery-successful Surgeon / Physician: Vineet Weiner Slice Plug Cutter Operator: Jessica Gracia Post-op diagnosis: same (51-year-old woman with diabetes who had a bare-metal stent placed to obtuse marginal about 6 weeks ago. She also had a stent which was lost off a stent balloon was had to be deployed in the proximal circumflex. She now presents with chest pain off and on for the last 2 days which was worse last night. She has had a non-STEMI, based on enzymes. She is referred for diagnostic catheterization and possible intervention.) Findings: Impression: Diffuse in-stent restenosis of the obtuse marginal, bare-metal stent-6 weeks after it was placed No significant restenosis of stent in the proximal circumflex Mild to most moderate disease in other vessels Normal global/regional left ventricular systolic function, LVEF greater than 65% Moderate elevation of LVEDP, 20-30 mmHg Angiogram the left femoral artery Angio-Seal left femoral artery-successful Plan/recommendation: The patient has had restenosis, very quickly/early, of the obtuse marginal bare- metal stent. They must be some reason a bare-metal stent was used--such as compliance issues are concerned about need for noncardiac surgery or concern about bleeding. Thus, I would be reluctant to try to place a drug-eluting stent. Also, to get it there, would be difficult because Dr. Wang placed it in a 3 hour procedure. to balloon it would be temporizing in that with a diffuse restenosis chance of it restenosing is probably close to 100% even with a good PTCA result. Lastly, considering bypass grafting could be made but is a single vessel which the risk of the surgery would probably greater than the risk of treating medically. My plan at this point would be to treat her medically. I will switch the Plavix to Brilinta. I will consider adjusting her beta-venessa. Her resting heart rate is in the 70s. We will try to treat her medically. I discussed this with Dr. Howe and also with Dr. Medina - - Dr. Keenan was not available, I tried to contact her at the clinic and also by phone-- and they both felt that is reasonable initial option. Also, we could reconsider, if she fails, going back in and doing a more difficult procedure. Addenda: I saw the patient post-cath. the groin puncture site and distal pulse are stable. vital signs are stable and the patient will be observed closely overnight. Specimens: none sent Estimated blood loss: minimal Condition: stable Anesthesia: local, conscious sedation Disposition: floor
[2016-11-02] MEDS ORDERED: SODIUM CHLORIDE 0.9% 1,000 ML IV SCH (12:00)
--- NOTE | 2016-11-02 12:06 | Cardiology Operative Report ---
Date of Procedure:: 11/02/16 Post-op diagnosis: same (51-year-old woman with diabetes who had a bare-metal stent placed to obtuse marginal about 6 weeks ago. She also had a stent which was lost off a stent balloon was had to be deployed in the proximal circumflex. She now presents with chest pain off and on for the last 2 days which was worse last night. She has had a non-STEMI, based on enzymes. She is referred for diagnostic catheterization and possible intervention.) Procedure: Date of procedure: 11/02/16 Procedure Preformed: Left heart cath Coronary angiography Left ventriculography Angiogram of the left femoral artery Loading with Brilinta, 180 mg p.o. Angio-Seal of the left femoral artery-successful Surgeon / Physician: Vineet Weiner Child Development Professor: Jessica Gracia Post-op diagnosis: same (51-year-old woman with diabetes who had a bare-metal stent placed to obtuse marginal about 6 weeks ago. She also had a stent which was lost off a stent balloon was had to be deployed in the proximal circumflex. She now presents with chest pain off and on for the last 2 days which was worse last night. She has had a non-STEMI, based on enzymes. She is referred for diagnostic catheterization and possible intervention.) procedure: The patient was prepped and draped in usual manner. Entered the right femoral artery via the Seldinger technique. I used a sheath and then used a JL4 and engaged left coronary. Multiple views were taken. I then exchanged for a JR4. Multiple views of the right coronary were taken. I then exchanged for an angled pigtail. I crossed the valve. Left ventricular end-diastolic pressures measured. Left ventriculography was done. Left ventricle pullback was done. The catheters were then removed from the patient. Angiogram of the right femoral artery was done either from the follow-through from the LV gram or a separate injection in the right femoral artery. Angio-Seal was done and it was successful. Please see the cath data sheets for the details of catheters used. Complications: None Hemodynamic data: LVEDP was 20-30 mmHg. Angiographic data: The left main coronary was large and had minimal luminal irregularities. The left anterior descending artery was large and had mild disease within it and multiple areas. The left circumflex system was moderate to large size. There was one obtuse marginal post lateral branch. The obtuse marginal had an in-stent restenosis which was diffuse. The more proximal circumflex stent was widely patent. Otherwise her minimal luminal irregularities in circumflex The right coronary artery was large in size, dominant vessel with the PDA. There is mild at most moderate disease throughout this vessel. No significant obstructive disease. MENDEZ left ventriculography revealed normal global/regional left ventricular systolic function. Overall ejection fraction was at least 65%. There is no significant mitral regurgitation. Angiogram of the right femoral artery revealed the puncture site to be in a large vessel, above the bifurcation. It was suitable for Angio-Seal. Impression: Diffuse in-stent restenosis of the obtuse marginal, bare-metal stent-6 weeks after it was placed No significant restenosis of stent in the proximal circumflex Mild to most moderate disease in other vessels Normal global/regional left ventricular systolic function, LVEF greater than 65% Moderate elevation of LVEDP, 20-30 mmHg Angiogram the left femoral artery Angio-Seal left femoral artery-successful Plan/recommendation: The patient has had restenosis, very quickly/early, of the obtuse marginal bare- metal stent. They must be some reason a bare-metal stent was used--such as compliance issues are concerned about need for noncardiac surgery or concern about bleeding. Thus, I would be reluctant to try to place a drug-eluting stent. Also, to get it there, would be difficult because Dr. Wang placed it in a 3 hour procedure. to balloon it would be temporizing in that with a diffuse restenosis chance of it restenosing is probably close to 100% even with a good PTCA result. Lastly, considering bypass grafting could be made but is a single vessel which the risk of the surgery would probably greater than the risk of treating medically. My plan at this point would be to treat her medically. I will switch the Plavix to Brilinta. I will consider adjusting her beta-venessa. Since her Coreg is not controlling her heart rate, resting heart rate is in the 70s, her blood pressure is borderline, I will stop the Coreg and use bisoprolol 2.5 mg p.o. twice daily. This might be better at controlling her heart rate. If we had her heart rate in the 50s she may not have angina and she has been a heart rate is in the 70s. Since her LVEF is normal, she is less in need of the carvedilol. Her resting heart rate is in the 70s. We will try to treat her medically. I discussed this with Dr. Howe and also with Dr. Medina -- Dr. Keenan was not available, I tried to contact her at the clinic and also by phone-- and they both felt that is reasonable initial option. Also, we could reconsider, if she fails, going back in and doing a more difficult procedure. Addenda: I saw the patient post-cath. the groin puncture site and distal pulse are stable. vital signs are stable and the patient will be observed closely overnight. Specimens: none sent Estimated blood loss: minimal Condition: stable Anesthesia: local, conscious sedation Disposition: floor Additional CC's: Shana Monet Anesthesia: local, minimal conscious sedation Surgeon / Physician: Vineet Weiner Child Development Professor: other Estimated blood loss: minimal Specimens: none sent Condition: stable Disposition: floor
--- NOTE | 2016-11-02 12:42 | EKG Report ---
Stationary ECG Study [facility] Test Date: 11/02/2016 12:41:57 PM Pat Name: JENNIE HODGES Department: Room: 263 Gender: F Pediatric Np: : 1965 Requested by: Vineet Weiner Order Number: [id number] Reading MD: RICHAR BEAR Intervals Wana Rate: 68 P: 52 DC: 144 QRS: 59 QRSD: 96 T: 81 QT: 459 QTc: 477 Interpretive Statements SINUS RHYTHM Electronically Signed On 11-02-16 14:13:20 CDT by RICHAR BEAR [email or web address]
[2016-11-02] MEDS: CIPROFLOXACIN 500 MG TABLET PO SCH ×2 (13:00→20:46)
[2016-11-02] MEDS ORDERED: BISOPROLOL 5 MG TABLET PO ONE (19:11)
[2016-11-02] MEDS: PRAVASTATIN 40 MG TABLET PO SCH (20:45)
[2016-11-02] MEDS: TICAGRELOR 90 MG TABLET PO SCH (20:46)
[2016-11-03] MEDS: NITROGLYCERIN 2% OINT 1 INCH/GM PACK TOP SCH ×5 (03:10→20:39)
[2016-11-03] MEDS: ONDANSETRON 4 MG/2 ML VIAL IV PRN (04:38)
[2016-11-03 06:12] LABS: Basophils % 0.2 % (0.0-0.8); Eosinophils # 0.1 10*3/uL (0.0-0.87); Eosinophils % 1.1 % (0.00-10.9); Hematocrit 29.3 VOL% (35.7-47.0); Hemoglobin 9.5 GM/DL (12.0-16.0); Immature Granulocytes % 0.6 %; Immature Granulocytes Absolute 0.04 #; Lymphocytes # 0.8 10*3/uL (1.4-4.0); Lymphocytes % 11.7 % (21.3-54.2); Mean Corpuscular HGB Conc 32.4 GM/DL (32-36); Mean Corpuscular Hemoglobin 25 PG (27-34); Mean Corpuscular Volume 76.5 FL (87-102); Mean Platelet Volume 9.2 FL (9.6-12.0); Monocytes # 0.7 10*3/uL (0.11-0.8); Monocytes % 10.5 % (1.7-12.7); Neutrophils % 75.9 % (38.7-73.9); Platelet Count 155 T/CUMM (130-400); Red Blood Count 3.83 MC/CUMM (3.8-5.5); Red Cell Distribution Width 14.4 % (9.3-17.3); White Blood Count 6.6 T/CUMM (4-12)
[2016-11-03 06:49] LABS: Blood Urea Nitrogen 20 MG/DL (7-18); Calcium 8.3 MG/DL (8.5-10.1); Calcium 8.4 MG/DL (8.5-10.1); Glucose 142 MG/DL (74-106); Magnesium 2.2 MG/DL (1.8-2.4); Osmolality,Calculated 285.3 MOS/KG (273-304); Sodium 141 MMOL/L (136-145)
[2016-11-03] MEDS ORDERED: BISOPROLOL 5 MG TABLET PO SCH (09:00)
[2016-11-03] MEDS: TICAGRELOR 90 MG TABLET PO SCH ×2 (09:05→20:35)
[2016-11-03] MEDS: FERROUS SULFATE 325 MG TABLET PO SCH (09:05)
[2016-11-03] MEDS: LINACLOTIDE 145 MCG CAPSULE PO SCH (09:05)
[2016-11-03] MEDS: CIPROFLOXACIN 500 MG TABLET PO SCH ×2 (09:05→23:32)
[2016-11-03] MEDS: ASPIRIN EC 81 MG TABLET PO SCH (09:06)
[2016-11-03] MEDS: FUROSEMIDE 20 MG TABLET PO SCH (09:06)
[2016-11-03] MEDS: INSULIN ASPART PROTAMINE/ASPART 70/30 100 UNIT/ML SUBCUT SCH ×3 (09:07→17:20)
[2016-11-03] MEDS: INSULIN GLARGINE 100 UNIT/ML SUBCUT SCH ×2 (09:08→20:40)
[2016-11-03] MEDS: INSULIN LISPRO 100 UNIT/ML SUBCUT SCH ×3 (09:08→20:41)
--- NOTE | 2016-11-03 09:43 | EKG Report ---
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
[2016-11-03] MEDS ORDERED: BISOPROLOL 5 MG TABLET PO ONE (14:58)
[2016-11-03] MEDS ORDERED: SERTRALINE 25 MG TABLET PO ONE (15:01)
--- NOTE | 2016-11-03 15:06 | Cardiology Progress Note ---
Assessment and Plan - Time spent with patient Time spent with patient: Greater than 30 minutes (1) NSTEMI (non-ST elevated myocardial infarction) Status: Acute Assessment and plan: We will try to treat medically for the subtotal restenotic, diffusely restenotic obtuse marginal stent Increase bisoprolol to 5 mg p.o. twice daily Try to slow heart rate to decrease myocardial oxygen demand And amlodipine 5 mg daily for angina management Add some sertraline to treat for anxiety Ambulate to the point of chest pain, rest, then ambulate more The above was discussed with the patient and the family. They voiced understanding and agree with the plan. Hopefully we can get her angina under good control with this approach. Current Visit: Yes (2) Anxiety Status: Acute Current Visit: Yes (3) CAD (coronary artery disease) Status: Chronic Current Visit: Yes Qualifiers: Coronary Disease-Associated Artery/Lesion type: [place] artery [place] vs. transplanted heart: [place] heart Associated angina: with stable angina Qualified Code(s): I25.118 - Atherosclerotic heart disease of [place] coronary artery with other forms of angina pectoris (4) Cirrhosis Status: Chronic Current Visit: No Qualifiers: Ascites presence: without ascites (5) Coronary artery disease Status: Chronic Current Visit: No (6) Diabetes Status: Chronic Current Visit: No (7) Dyslipidemia Status: Chronic Current Visit: No (8) Hypertension Status: Chronic Current Visit: No (9) Obesity Status: Chronic Current Visit: No Cardiology - PN: Subj Interval history: Still with some angina. It goes away with sublingual TNG. Exam (Progress Note) - Constitutional Vitals: Period Temp Pulse Resp BP Sys/Benitez Pulse Ox Last 24 Hr 96.2 F-98.6 F 63-74 16-18 92-130/53-68 90-98 Exam: HEENT: Pupils equal, reactive to light and accommodation Neck: NoJVD or bruit Lungs clear to auscultation Heart: Regular rhythm rate with normal S1 and S2. Apical S4 Abdomen: No hepatosplenomegaly Spine/extremities: No clubbing, cyanosis, or edema Neuro: Nonfocal Psych: No depression or anxiety Result/EKG - Labs CBC & BMP: 11/03/16 05:59 11/03/16 05:59 Lab Results: I have reviewed the past 24 hour labs Labs: Laboratory Results - last 24 hr 11/02/16 11/03/16 11/03/16 15:10 05:59 05:59 WBC 6.6 RBC 3.83 Hgb 9.5 L Hct 29.3 L MCV 76.5 L MCH 25 L MCHC 32.4 RDW 14.4 Plt Count 155 MPV 9.2 L Neut % (Auto) 75.9 H Lymph % (Auto) 11.7 L [place] % (Auto) 10.5 Eos % (Auto) 1.1 Baso % (Auto) 0.2 Neut # (Auto) 5.0 Lymph # (Auto) 0.8 L [place] # (Auto) 0.7 Eos # (Auto) 0.1 Baso # (Auto) 0.0 Immature Gran % 0.6 Nucleated RBC % 0.0 Immature Gran # 0.04 Nucleated RBCs # 0.00 Sodium 141 Potassium 4.0 Chloride 106 Carbon Dioxide 27 Anion Gap 12.0 BUN 20 H Creatinine 1.20 H GFR Calculation 63 BUN/Creatinine Ratio 16.00 Glucose 141 H POC Glucose 261 H Calculated Osmolality 285.3 Calcium 8.3 L Magnesium 2.2 Total Creatine Kinase CK-MB (CK-2) Troponin I 11/03/16 11/03/16 11/03/16 05:59 07:19 11:07 WBC RBC Hgb Hct MCV MCH MCHC RDW Plt Count MPV Neut % (Auto) Lymph % (Auto) [place] % (Auto) Eos % (Auto) Baso % (Auto) Neut # (Auto) Lymph # (Auto) [place] # (Auto) Eos # (Auto) Baso # (Auto) Immature Gran % Nucleated RBC % Immature Gran # Nucleated RBCs # Sodium 141 Potassium 4.0 Chloride 105 Carbon Dioxide 27 Anion Gap 13.0 BUN 20 H Creatinine 1.20 H GFR Calculation 63 BUN/Creatinine Ratio 16.00 Glucose 142 H POC Glucose 174 H 289 H Calculated Osmolality 285.3 Calcium 8.4 L Magnesium Total Creatine Kinase 110 D CK-MB (CK-2) 4.1 H D Troponin I 2.530 H D - EKG EKG results: interpreted by me Quality Measures - VTE Contraindication to Pharmacological VTE Prophylaxis: High Risk of Bleeding - Stroke Onset of Symptoms Date: 10/31/16 Onset of Symptoms Time: 15:00 Specialty Discharge - Follow Up or Referrals Follow up with: Shana Wang MD [Physician] -
[2016-11-03] MEDS: amLODIPine 5 MG TABLET PO SCH (15:38)
[2016-11-03] MEDS: PRAVASTATIN 40 MG TABLET PO SCH (20:35)
[2016-11-03] MEDS: BISOPROLOL 5 MG TABLET PO SCH (20:35)
[2016-11-03] MEDS: SERTRALINE 25 MG TABLET PO SCH (20:40)
[2016-11-04] MEDS: NITROGLYCERIN 2% OINT 1 INCH/GM PACK TOP SCH ×4 (03:16→20:49)
[2016-11-04 06:01] LABS: Basophils % 0.3 % (0.0-0.8); Eosinophils # 0.1 10*3/uL (0.0-0.87); Eosinophils % 1.4 % (0.00-10.9); Hematocrit 28.7 VOL% (35.7-47.0); Hemoglobin 9.5 GM/DL (12.0-16.0); Immature Granulocytes % 0.4 %; Immature Granulocytes Absolute 0.03 #; Lymphocytes # 1.1 10*3/uL (1.4-4.0); Lymphocytes % 16.5 % (21.3-54.2); Mean Corpuscular HGB Conc 33.1 GM/DL (32-36); Mean Corpuscular Hemoglobin 25 PG (27-34); Mean Corpuscular Volume 76.3 FL (87-102); Mean Platelet Volume 9.6 FL (9.6-12.0); Monocytes # 0.7 10*3/uL (0.11-0.8); Monocytes % 9.6 % (1.7-12.7); Neutrophils % 71.8 % (38.7-73.9); Platelet Count 149 T/CUMM (130-400); Red Blood Count 3.76 MC/CUMM (3.8-5.5); Red Cell Distribution Width 14.5 % (9.3-17.3); White Blood Count 6.9 T/CUMM (4-12)
[2016-11-04 06:32] LABS: Calcium 8.4 MG/DL (8.5-10.1); Osmolality,Calculated 285.3 MOS/KG (273-304); Potassium 4.1 MMOL/L (3.5-5.1)
[2016-11-04 06:34] LABS: Albumin 2.8 G/DL (3.4-5.0); Bilirubin,Total 0.5 MG/DL (0.2-1.0); Calcium 8.4 MG/DL (8.5-10.1); Osmolality,Calculated 285.3 MOS/KG (273-304); Potassium 4.1 MMOL/L (3.5-5.1)
--- NOTE | 2016-11-04 07:34 | EKG Report ---
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
[2016-11-04] MEDS: INSULIN ASPART PROTAMINE/ASPART 70/30 100 UNIT/ML SUBCUT SCH ×3 (09:17→17:24)
[2016-11-04] MEDS: INSULIN GLARGINE 100 UNIT/ML SUBCUT SCH (09:17)
[2016-11-04] MEDS: ASPIRIN EC 81 MG TABLET PO SCH (09:19)
[2016-11-04] MEDS: BISOPROLOL 5 MG TABLET PO SCH ×2 (09:19→20:49)
[2016-11-04] MEDS: FERROUS SULFATE 325 MG TABLET PO SCH (09:19)
[2016-11-04] MEDS: LINACLOTIDE 145 MCG CAPSULE PO SCH (09:19)
[2016-11-04] MEDS: FUROSEMIDE 20 MG TABLET PO SCH (09:19)
[2016-11-04] MEDS: TICAGRELOR 90 MG TABLET PO SCH ×2 (09:20→20:49)
[2016-11-04] MEDS: CIPROFLOXACIN 500 MG TABLET PO SCH ×2 (09:20→20:48)
[2016-11-04] MEDS: amLODIPine 5 MG TABLET PO SCH (09:20)
[2016-11-04] MEDS: INSULIN LISPRO 100 UNIT/ML SUBCUT SCH ×3 (09:21→21:52)
--- NOTE | 2016-11-04 16:41 | Cardiology Progress Note ---
Assessment and Plan (1) NSTEMI (non-ST elevated myocardial infarction) Status: Acute Assessment and plan: We will try to treat medically for the subtotal restenotic, diffusely restenotic obtuse marginal stent Increase bisoprolol to 5 mg p.o. twice daily Try to slow heart rate to decrease myocardial oxygen demand And amlodipine 5 mg daily for angina management Add some sertraline to treat for anxiety Ambulate to the point of chest pain, rest, then ambulate more The above was discussed with the patient and the family. They voiced understanding and agree with the plan. Hopefully we can get her angina under good control with this approach. 11/04/16 Her angina slightly better or less. I encouraged her to walk to the point of chest pain, rest, and walk more. That would also to apply to her dyspnea on exertion which is probably in part due to deconditioning. Her heart rate is slower with the bisoprolol, some less myocardial oxygen demand with activities We'll try to continue medical therapy for now. If she is anemic, will start on some iron. We'll set her up to see Dr. Shana Wang within the next week to assess his situation and see if she thinks something something else should be done. The above was discussed with the patient and their family. They agree with the plan. Possibly may be discharged tomorrow with follow-up. Current Visit: Yes (2) Anxiety Status: Acute Current Visit: Yes (3) CAD (coronary artery disease) Status: Chronic Current Visit: Yes Qualifiers: Coronary Disease-Associated Artery/Lesion type: [place] artery [place] vs. transplanted heart: [place] heart Associated angina: with stable angina Qualified Code(s): I25.118 - Atherosclerotic heart disease of [place] coronary artery with other forms of angina pectoris (4) Cirrhosis Status: Chronic Current Visit: No Qualifiers: Ascites presence: without ascites (5) Coronary artery disease Status: Chronic Current Visit: No (6) Diabetes Status: Chronic Current Visit: No (7) Dyslipidemia Status: Chronic Current Visit: No (8) Hypertension Status: Chronic Current Visit: No (9) Obesity Status: Chronic Current Visit: No Cardiology - PN: Subj Interval history: has some angina, but is less.some dyspnea on exertion. Exam (Progress Note) - Constitutional Vitals: Period Temp Pulse Resp BP Sys/Benitez Pulse Ox Last 24 Hr 97.7 F-99.0 F 58-73 18-20 123-151/64-77 93-98 Exam: HEENT: Pupils equal, reactive to light and accommodation Neck: NoJVD or bruit Lungs clear to auscultation Heart: Regular rhythm rate with normal S1 and S2. Apical S4 Abdomen: No hepatosplenomegaly Spine/extremities: No clubbing, cyanosis, or edema Neuro: Nonfocal Psych: No depression or anxiety Result/EKG - Labs CBC & BMP: 11/04/16 05:31 11/04/16 05:31 Lab Results: I have reviewed the past 24 hour labs Labs: Laboratory Results - last 24 hr 11/03/16 11/03/16 11/04/16 15:07 20:00 05:31 WBC 6.9 RBC 3.76 L Hgb 9.5 L Hct 28.7 L MCV 76.3 L MCH 25 L MCHC 33.1 RDW 14.5 Plt Count 149 MPV 9.6 Neut % (Auto) 71.8 Lymph % (Auto) 16.5 L [place] % (Auto) 9.6 Eos % (Auto) 1.4 Baso % (Auto) 0.3 Neut # (Auto) 5.0 Lymph # (Auto) 1.1 L [place] # (Auto) 0.7 Eos # (Auto) 0.1 Baso # (Auto) 0.0 Immature Gran % 0.4 Nucleated RBC % 0.0 Immature Gran # 0.03 Nucleated RBCs # 0.00 Sodium Potassium Chloride Carbon Dioxide Anion Gap BUN Creatinine GFR Calculation BUN/Creatinine Ratio Glucose POC Glucose 245 H 116 H Calculated Osmolality Calcium Total Bilirubin AST ALT Alkaline Phosphatase Total Protein Albumin Globulin Albumin/Globulin Ratio 11/04/16 11/04/16 11/04/16 05:31 05:31 07:22 WBC RBC Hgb Hct MCV MCH MCHC RDW Plt Count MPV Neut % (Auto) Lymph % (Auto) [place] % (Auto) Eos % (Auto) Baso % (Auto) Neut # (Auto) Lymph # (Auto) [place] # (Auto) Eos # (Auto) Baso # (Auto) Immature Gran % Nucleated RBC % Immature Gran # Nucleated RBCs # Sodium 141 141 Potassium 4.1 4.1 Chloride 105 106 Carbon Dioxide 25 25 Anion Gap 15.1 H 14.1 BUN 20 H 20 H Creatinine 1.10 H 1.10 H GFR Calculation 70 70 BUN/Creatinine Ratio 18.00 18.00 Glucose 138 H 137 H POC Glucose 149 H Calculated Osmolality 285.3 285.3 Calcium 8.4 L 8.4 L Total Bilirubin 0.50 AST 32 ALT 34 Alkaline Phosphatase 121 H Total Protein 6.0 L Albumin 2.8 L Globulin 3.2 Albumin/Globulin Ratio 0.8 L 11/04/16 11/04/16 11:16 14:56 WBC RBC Hgb Hct MCV MCH MCHC RDW Plt Count MPV Neut % (Auto) Lymph % (Auto) [place] % (Auto) Eos % (Auto) Baso % (Auto) Neut # (Auto) Lymph # (Auto) [place] # (Auto) Eos # (Auto) Baso # (Auto) Immature Gran % Nucleated RBC % Immature Gran # Nucleated RBCs # Sodium Potassium Chloride Carbon Dioxide Anion Gap BUN Creatinine GFR Calculation BUN/Creatinine Ratio Glucose POC Glucose 252 H 222 H Calculated Osmolality Calcium Total Bilirubin AST ALT Alkaline Phosphatase Total Protein Albumin Globulin Albumin/Globulin Ratio Quality Measures - VTE Contraindication to Pharmacological VTE Prophylaxis: High Risk of Bleeding - Stroke Onset of Symptoms Date: 10/31/16 Onset of Symptoms Time: 15:00 Specialty Discharge - Follow Up or Referrals Follow up with: Shana Wang MD [Physician] - 1 Week
[2016-11-04] MEDS: SERTRALINE 25 MG TABLET PO SCH (20:48)
[2016-11-04] MEDS: PRAVASTATIN 40 MG TABLET PO SCH (20:49)
[2016-11-05] MEDS: INSULIN GLARGINE 100 UNIT/ML SUBCUT SCH ×3 (00:24→21:51)
[2016-11-05] MEDS: ONDANSETRON 4 MG/2 ML VIAL IV PRN (02:30)
[2016-11-05] MEDS: NITROGLYCERIN 2% OINT 1 INCH/GM PACK TOP SCH ×3 (02:51→09:40)
[2016-11-05 05:13] LABS: Basophils % 0.4 % (0.0-0.8); Eosinophils # 0.1 10*3/uL (0.0-0.87); Eosinophils % 1.5 % (0.00-10.9); Hematocrit 29.9 VOL% (35.7-47.0); Hemoglobin 9.6 GM/DL (12.0-16.0); Immature Granulocytes % 0.6 %; Immature Granulocytes Absolute 0.04 #; Lymphocytes # 1.2 10*3/uL (1.4-4.0); Lymphocytes % 16.6 % (21.3-54.2); Mean Corpuscular HGB Conc 32.1 GM/DL (32-36); Mean Corpuscular Hemoglobin 25 PG (27-34); Mean Corpuscular Volume 77.3 FL (87-102); Mean Platelet Volume 9.8 FL (9.6-12.0); Monocytes # 0.8 10*3/uL (0.11-0.8); Monocytes % 10.6 % (1.7-12.7); Neutrophils # 5.1 10*3/uL (1.4-7.4); Neutrophils % 70.3 % (38.7-73.9); Platelet Count 172 T/CUMM (130-400); Red Blood Count 3.87 MC/CUMM (3.8-5.5); Red Cell Distribution Width 14.5 % (9.3-17.3); White Blood Count 7.2 T/CUMM (4-12)
[2016-11-05 05:43] LABS: Calcium 8.5 MG/DL (8.5-10.1); Osmolality,Calculated 284.3 MOS/KG (273-304); Potassium 4.1 MMOL/L (3.5-5.1)
--- NOTE | 2016-11-05 07:33 | EKG Report ---
Stationary ECG Study [facility] Test Date: 11/05/2016 7:33:44 AM Pat Name: JENNIE HODGES Department: Room: 263 Gender: F Manager Oncology: FLORA : 1965 Requested by: Vineet Weiner Order Number: [id number] Reading MD: VIVI ORTIZ Intervals [place] Rate: 60 P: 51 MN: 146 QRS: 38 QRSD: 88 T: 60 QT: 446 QTc: 448 Interpretive Statements SINUS RHYTHM Electronically Signed On 11-05-16 07:40:33 CDT by IVVI ORTIZ [id number]
--- NOTE | 2016-11-05 09:36 | Cardiology Progress Note ---
Addendum entered and electronically signed by Keisha Delacruz NP 11/05/16 12: 18: I spoke with patient about possible cardiac catheterization given her continued chest pain shortness of breath with exertion. Her troponin has decreased this morning to 1.730. She has declined heart catheterization at this point and prefers to try medical management. Isosorbide mononitrate has been ordered. Also, I will add Ranexa 500 mg orally twice daily starting now. Brilinta is new this admission. Will continue. Patient required bare metal stenting 6 weeks ago due to her history of anemia (takes oral iron replacement daily), esophageal varices (nonbleeding) and cirrhosis of the liver. I will request records from her natural resources technician at [facility]. She states she has not followed up with him in several years and believe she needs to be referred to someone in [place]. At discharge, we can have her follow-up with her primary care provider to arrange for referral. If her anemia is stable, nonbleeding varices , she may be a candidate for dual antiplatelet therapy for 1 year. Again, she would like to try medical management at this point and has declined cardiac catheterization today. Original Note: Assessment and Plan - Time spent with patient Time spent with patient: Greater than 30 minutes (1) NSTEMI (non-ST elevated myocardial infarction) Status: Acute Assessment and plan: SEE PLAN OF CARE LISTED BELOW Current Visit: Yes (2) CAD (coronary artery disease) Status: Chronic Assessment and plan: SEE PLAN OF CARE LISTED BELOW Current Visit: Yes Qualifiers: Coronary Disease-Associated Artery/Lesion type: [place] artery [place] vs. transplanted heart: [place] heart Associated angina: with stable angina Qualified Code(s): I25.118 - Atherosclerotic heart disease of [place] coronary artery with other forms of angina pectoris (3) Diabetes Status: Chronic Assessment and plan: SEE PLAN OF CARE LISTED BELOW Current Visit: No (4) Hypertension Status: Chronic Assessment and plan: SEE PLAN OF CARE LISTED BELOW Current Visit: No (5) Dyslipidemia Status: Chronic Assessment and plan: SEE PLAN OF CARE LISTED BELOW Current Visit: No (6) Esophageal varices Status: Chronic Assessment and plan: SEE PLAN OF CARE LISTED BELOW Current Visit: No (7) Cirrhosis Status: Chronic Assessment and plan: SEE PLAN OF CARE LISTED BELOW Current Visit: No Qualifiers: Ascites presence: without ascites (8) Obesity Status: Chronic Assessment and plan: SEE PLAN OF CARE LISTED BELOW Current Visit: No (9) Angina pectoris Status: Acute Assessment and plan: SEE PLAN OF CARE LISTED BELOW Current Visit: Yes Cardiology - PN: Subj Interval history: CREDIT PROFESSIONAL: DR. WANG SUMMARY: Ms. Shipley, 51WF, was admitted through the ED of [facility] November 01, 2016 with NSTEMI. History of known CAD, hypertension, dyslipidemia, diabetes, nonbleeding esophageal varices, cirrhosis of the liver (stable), anemia, anxiety. Underwent LHC November 02, 2016. Found was diffuse in stent restenosis of the obtuse marginal bare-metal stent, 6 weeks after it was placed. Other vessels were stable, EF 65%. Please see heart catheterization report plan/ recommendation for additional information. NOVEMBER 05, 2016: Patient was kept over the weekend for continued angina. Bisoprolol was initiated in an effort to keep her heart rate low enough to decrease myocardial oxygen demand. Rather than DELTA inhibitor, Amlodipine was favored for anginal management. Plavix was discontinued and Brilinta initiated. This morning, patient continues to have significant shortness of breath, weakness walking to the bathroom. She continues to have chest pain intermittently throughout the day, possibly better overnight. Patient is very tearful this morning. Because she continues to have significant discomfort, shortness of breath I will order a troponin level this morning to see where we stand. Chest x-ray as well. Discontinue nitroglycerin paste and initiate isosorbide. May consider starting Ranexa soon. We could consider repeating echocardiogram, focused study, to evaluate LVEF post infarct considering her shortness of breath. We discussed the possibility of cardiac rehabilitation in her future, however they live too far to drive here routinely. I will further discuss with Dr. Howe and await additional recommendations. ASSESSMENT/PLAN: 1. NSTEMI -continue with aspirin, Brilinta, beta venessa, lipid-lowering agent. Favor Norvasc for angina rather than DELTA inhibitor at this point. 2. KNOWN CAD - see C. 3. HYPERTENSION - well-controlled. 4. DYSLIPIDEMIA - continue lipid lowering agent 5. DIABETES - brittle diabetic. Continue home regimen. Holding Valsartan and utilizing Norvasc. 6. HISTORY OF ESOPHAGEAL VARICES, CIRRHOSIS - Stable. Seeeliza CHERRY at [facility] and has been stable for several years without bleeding 7. ANEMIA - continue home medication of iron. Stable. 8. ANGINA - ordering troponin this morning. Restarting isosorbide. Consider Ranexa. Exam (Progress Note) - Constitutional Vitals: Period Temp Pulse Resp BP Sys/Benitez Pulse Ox Last 24 Hr 97.3 F-98.1 F 57-61 18-18 110-136/61-74 92-98 Exam: General: [Pale, tearful. Cooperative] HEENT: [PERRL, normocephalic, atraumatic. Mucous membranes moist. No jaundice noted. Conjunctiva moist and clear, sclerae anicteric] Neck: No JVD/HJR, no thyromegaly or lymphadenopathy noted. No carotid bruit appreciated Cardiac: [Regular rate and rhythm.] [No obvious murmur, rub or gallop.] Lungs: [Clear to auscultation without accessory muscle use to assist the respiratory pattern.] Using oxygen intermittently Abdomen: Soft, bowel sounds normoactive. Nontender and nondistended. No abdominal bruit or thrill noted. No masses noted. Musculoskeletal: No fluid collection. Decreased range of motion is noted. Extremities: Right groin soft, free of hematoma or bruit. No clubbing, cyanosis noted. [ No edema noted.] Upper extremity pulses 2+. Lower extremity pulses 2+. Capillary refill less than 3 seconds. Skin: No unusual lesions or rashes. No skin breakdown appreciated. Neuro: Awake, alert and oriented 3. Moves all extremities well without hemiparesis or paralysis. No essential tremor is appreciated. Result/EKG - Labs CBC & BMP: 11/05/16 04:06 11/05/16 04:06 Lab Results: I have reviewed the past 24 hour labs Labs: Laboratory Results - last 24 hr 11/04/16 11/04/16 11/04/16 11:16 14:56 20:33 WBC RBC Hgb Hct MCV MCH MCHC RDW Plt Count MPV Neut % (Auto) Lymph % (Auto) [place] % (Auto) Eos % (Auto) Baso % (Auto) Neut # (Auto) Lymph # (Auto) [place] # (Auto) Eos # (Auto) Baso # (Auto) Immature Gran % Nucleated RBC % Immature Gran # Nucleated RBCs # Sodium Potassium Chloride Carbon Dioxide Anion Gap BUN Creatinine GFR Calculation BUN/Creatinine Ratio Glucose POC Glucose 252 H 222 H 210 H Calculated Osmolality Calcium 11/05/16 11/05/16 11/05/16 04:06 04:06 07:39 WBC 7.2 RBC 3.87 Hgb 9.6 L Hct 29.9 L MCV 77.3 L MCH 25 L MCHC 32.1 RDW 14.5 Plt Count 172 MPV 9.8 Neut % (Auto) 70.3 Lymph % (Auto) 16.6 L [place] % (Auto) 10.6 Eos % (Auto) 1.5 Baso % (Auto) 0.4 Neut # (Auto) 5.1 Lymph # (Auto) 1.2 L [place] # (Auto) 0.8 Eos # (Auto) 0.1 Baso # (Auto) 0.0 Immature Gran % 0.6 Nucleated RBC % 0.0 Immature Gran # 0.04 Nucleated RBCs # 0.00 Sodium 141 Potassium 4.1 Chloride 106 Carbon Dioxide 26 Anion Gap 13.1 BUN 22 H Creatinine 1.20 H GFR Calculation 63 BUN/Creatinine Ratio 18.00 Glucose 116 H POC Glucose 148 H Calculated Osmolality 284.3 Calcium 8.5 - Diagnostic Findings Procedure: Chest x-ray: pending - EKG EKG results: interpreted by ri EKG shows: sinus rhythm Quality Measures - VTE Contraindication to Pharmacological VTE Prophylaxis: High Risk of Bleeding - Stroke Onset of Symptoms Date: 10/31/16 Onset of Symptoms Time: 15:00 Specialty Discharge - Follow Up or Referrals Follow up with: Shana Wang MD [Physician] - 1 Week
[2016-11-05] MEDS: INSULIN ASPART PROTAMINE/ASPART 70/30 100 UNIT/ML SUBCUT SCH ×3 (09:38→17:08)
[2016-11-05] MEDS: FUROSEMIDE 20 MG TABLET PO SCH (09:41)
[2016-11-05] MEDS: TICAGRELOR 90 MG TABLET PO SCH ×2 (09:41→21:51)
[2016-11-05] MEDS: BISOPROLOL 5 MG TABLET PO SCH ×2 (09:41→21:51)
[2016-11-05] MEDS: FERROUS SULFATE 325 MG TABLET PO SCH (09:41)
[2016-11-05] MEDS: amLODIPine 5 MG TABLET PO SCH (09:42)
[2016-11-05] MEDS: ASPIRIN EC 81 MG TABLET PO SCH (09:42)
[2016-11-05] MEDS: CIPROFLOXACIN 500 MG TABLET PO SCH ×2 (09:42→21:51)
[2016-11-05] MEDS: LINACLOTIDE 145 MCG CAPSULE PO SCH (09:42)
[2016-11-05] MEDS: INSULIN LISPRO 100 UNIT/ML SUBCUT SCH ×3 (09:42→21:51)
--- NOTE | 2016-11-05 10:13 | EKG Report ---
Stationary ECG Study [facility] Test Date: 11/05/2016 10:12:42 AM Pat Name: JENNIE HODGES Department: Room: 263 Gender: F Box Spring Maker: : 1965 Requested by: Keisha Brown Order Number: [id number] Reading MD: JOHNY ISABEL Intervals [place] Rate: 59 P: 56 MN: 141 QRS: 60 QRSD: 95 T: 61 QT: 460 QTc: 459 Interpretive Statements SINUS RHYTHM Electronically Signed On 11-05-16 10:32:32 CDT by JOHNY ISABEL [id number]
--- NOTE | 2016-11-05 10:36 | XRay Report ---
Exam: XR chest 2V Indication: Cough Shortness of breath Comparison study: Prior chest radiograph 11/01/2016 Findings: Cardiac silhouette is mildly enlarged, similar to prior. Otherwise, the heart, mediastinum and bony structures are stable from prior. There is no focal consolidation, pneumothorax or pleural effusion identified. Impression: No acute cardiopulmonary process. PROCEDURE INTERPRETED AT [facility] DEPARTMENT OF RADIOLOGY Final Report Signed by: Gerald Nick
[2016-11-05] MEDS: ISOSORBIDE MONONITRATE 30 MG TABLET PO SCH (12:42)
[2016-11-05] MEDS: RANOLAZINE 500 MG TABLET PO SCH ×2 (12:42→21:51)
--- NOTE | 2016-11-05 14:03 | Sleep Medicine Consult ---
Assessment and Plan (1) Unspecified sleep apnea Status: Acute Assessment and plan: This patient does have symptoms certainly concerning for sleep apnea and with her comorbidities, sleep evaluation is indicated. We will initiate this with home sleep apnea testing tonight in the bedroom. We will follow-up on those results tomorrow. Current Visit: Yes (2) Coronary artery disease Status: Chronic Assessment and plan: I reviewed the Jimenez data from Lancet 2004 with the patient to their understanding. This study proved significant reduction in the risk of fatal and nonfatal cardiac events in patients with severe obstructive sleep apnea compliant with CPAP, in comparison with those noncompliant with CPAP for severe sleep apnea. Current Visit: No (3) Diabetes Status: Chronic Assessment and plan: The prevalence rate for obstructive sleep apnea in patients with type 2 diabetes can be as high as 86%. Those patients with moderate to severe obstructive sleep apnea are at a greater risk for diabetic nephropathy and neuropathy. Compliance with CPAP therapy for these patients can lead to improvement in glycemic control and improvement in insulin sensitivity. Current Visit: No (4) Hypertension Status: Chronic Assessment and plan: The prevalence rate for obstructive sleep apnea patients with hypertension is 35 %. That rate can be as high as 80% in patients who require 4 or more medications for blood pressure control. Current Visit: No History of Present Illness Chief complaint: Sleep apnea History of present illness: Ms. Shipley is a 51 year old female with a history of coronary artery disease and cirrhosis. She recently had intervention and is developed recurrent chest pain with abnormal cardiac isoenzymes. She does have a history of snoring and abnormal breathing during her sleep. She will wake up from sleep short of breath. She awakens multiple times to urinate. She is also bothered by restlessness of her legs and discomfort of her legs that disturb her sleep. Her sleeps with CPAP. She usually tries to get 7 hours of sleep but has difficulty staying asleep. She has significant chronic health issues that include her heart disease and cirrhosis. Home Medications Medication Instructions Recorded Confirmed Type Aspirin [Ecotrin] 81 mg PO DAILY 05/15/16 11/02/16 History Carvedilol [Coreg] 12.5 mg PO BID 05/15/16 11/02/16 History Ergocalciferol (Vitamin D2) 50,000 unit PO Q7D 05/15/16 11/02/16 History [Vitamin D2] Furosemide Tab [Lasix Tab] 20 mg PO DAILY 05/15/16 11/02/16 History Insulin Aspart [NovoLOG FlexPen] 40 unit SUBCUT TID 05/15/16 11/02/16 History Insulin Glargine,Hum.rec.anlog 50 unit SUBCUT BID 05/15/16 11/02/16 History [Lantus SoloStar] Linaclotide [Linzess] 145 mcg PO DAILY 05/15/16 11/02/16 History Clopidogrel [Plavix] 75 mg PO DAILY #30 tablet 09/20/16 11/02/16 Rx Pravastatin Sodium 40 mg PO BEDTIME #0 09/20/16 11/02/16 Rx Ferrous Sulfate [Iron] 325 mg PO DAILY 11/02/16 11/02/16 History Valsartan [Diovan] 80 mg PO DAILY 11/02/16 11/02/16 History Allergies Allergy/AdvReac Type Severity Reaction Status Date / Time codeine Allergy RASH Verified 05/15/16 14:14 Hydromorphone [From Dilaudid] Allergy Verified 05/15/16 14:14 meperidine [From Demerol] Allergy Verified 11/02/16 01:58 morphine Allergy RASH Verified 05/15/16 14:14 steroids AdvReac Unknown/Unable Uncoded 05/15/16 14:14 to obtain Review of systems: Otherwise unremarkable from a sleep medicine standpoint. Exam (Pulmonay) H&P - Constitutional Vitals: Period Temp Pulse Resp BP Sys/Benitez Pulse Ox Last 24 Hr 97.3 F-98.1 F 57-61 18-18 110-135/61-67 92-97 Exam: She is alert and responsive in no acute distress. Pupils equal round reactive to light and accommodation. Extraocular movements intact. Oropharynx with a class III Mallampati exam. Neck is supple. She has a 19 inch circumference. No supraclavicular adenopathy is noted. Chest with symmetrical breath sounds without focal wheeze, rhonchi, or rales. Cardiac exam reveals a regular rhythm without murmur or gallop. Abdomen soft nontender without palpable hepatosplenomegaly or mass. Extremities are without clubbing, cyanosis, or edema. Neurologically, she is grossly intact. She moves all extremities with good strength and ambulates with a normal gait. Medical,Surgical,& Family Hx - Medical History Cardio: History of: CAD, Hypertension Psychological: History of: Anxiety Disorders Neurology: History of: Multiple Sclerosis No history of: Seizures Endocrine: History of: Diabetes Mellitus (IDDM), Diabetes Mellitus (NIDDM), Dyslipidemia Rheumatology: History of;: Fibromyalgia Gastrointestinal: History of: Esophageal Varices, Liver Problems (cirrohosis) - Surgical History Cardiac Surgeries: Sugical HX of: Cardiac Catheterization (stent x 4) - Family History Family History: Reports;: Family Heart Disease - Social History Smoking Status: Never smoker Frequency of Alcohol Use: None Type of Drug Use: None Results - Labs CBC & BMP: 11/05/16 04:06 11/05/16 04:06 Lab Results: I have reviewed the past 24 hour labs Quality Measures - VTE Contraindication to Pharmacological VTE Prophylaxis: High Risk of Bleeding - Stroke Onset of Symptoms Date: 10/31/16 Onset of Symptoms Time: 15:00 Specialty Discharge - Follow Up or Referrals Follow up with: Shana Wang MD [Physician] - 1 Week
[2016-11-05] MEDS: SERTRALINE 25 MG TABLET PO SCH (21:51)
[2016-11-05] MEDS: PRAVASTATIN 40 MG TABLET PO SCH (21:51)
[2016-11-06 05:58] LABS: Basophils % 0.5 % (0.0-0.8); Eosinophils # 0.1 10*3/uL (0.0-0.87); Eosinophils % 2.1 % (0.00-10.9); Hematocrit 29.4 VOL% (35.7-47.0); Hemoglobin 9.7 GM/DL (12.0-16.0); Immature Granulocytes % 0.6 %; Immature Granulocytes Absolute 0.04 #; Lymphocytes # 1.4 10*3/uL (1.4-4.0); Lymphocytes % 20.5 % (21.3-54.2); Mean Corpuscular Hemoglobin 25 PG (27-34); Mean Corpuscular Volume 76.6 FL (87-102); Mean Platelet Volume 9.6 FL (9.6-12.0); Monocytes # 0.6 10*3/uL (0.11-0.8); Monocytes % 9.4 % (1.7-12.7); Neutrophils # 4.4 10*3/uL (1.4-7.4); Neutrophils % 66.9 % (38.7-73.9); Platelet Count 173 T/CUMM (130-400); Red Blood Count 3.84 MC/CUMM (3.8-5.5); Red Cell Distribution Width 14.6 % (9.3-17.3); White Blood Count 6.6 T/CUMM (4-12)
[2016-11-06 06:22] LABS: Calcium 8.6 MG/DL (8.5-10.1); Magnesium 2.2 MG/DL (1.8-2.4); Osmolality,Calculated 286.1 MOS/KG (273-304)
[2016-11-06] MEDS: ONDANSETRON 4 MG/2 ML VIAL IV PRN (07:34)
[2016-11-06] MEDS: INSULIN ASPART PROTAMINE/ASPART 70/30 100 UNIT/ML SUBCUT SCH ×3 (08:55→16:24)
[2016-11-06] MEDS: ISOSORBIDE MONONITRATE 30 MG TABLET PO SCH (08:56)
[2016-11-06] MEDS: ASPIRIN EC 81 MG TABLET PO SCH (08:56)
[2016-11-06] MEDS: BISOPROLOL 5 MG TABLET PO SCH ×2 (08:56→21:35)
[2016-11-06] MEDS: amLODIPine 5 MG TABLET PO SCH (08:56)
[2016-11-06] MEDS: RANOLAZINE 500 MG TABLET PO SCH ×2 (08:56→21:35)
[2016-11-06] MEDS: FUROSEMIDE 20 MG TABLET PO SCH (08:56)
[2016-11-06] MEDS: LINACLOTIDE 145 MCG CAPSULE PO SCH (08:56)
[2016-11-06] MEDS: FERROUS SULFATE 325 MG TABLET PO SCH (08:56)
[2016-11-06] MEDS: TICAGRELOR 90 MG TABLET PO SCH ×2 (08:56→21:36)
[2016-11-06] MEDS: CIPROFLOXACIN 500 MG TABLET PO SCH ×2 (08:56→21:35)
[2016-11-06] MEDS: INSULIN LISPRO 100 UNIT/ML SUBCUT SCH ×3 (08:57→21:37)
[2016-11-06] MEDS: INSULIN GLARGINE 100 UNIT/ML SUBCUT SCH ×2 (09:32→21:37)
--- NOTE | 2016-11-06 11:26 | Sleep Medicine Progress Note ---
Assessment and Plan (1) Unspecified sleep apnea Status: Acute Assessment and plan: Patient will be placed on auto titration CPAP and we will follow-up her response. Current Visit: Yes (2) Coronary artery disease Status: Chronic Current Visit: No (3) Diabetes Status: Chronic Current Visit: No (4) Hypertension Status: Chronic Current Visit: No Sleep Medicine Subjective Interval history: Patient did undergo HST evaluation last night and was found to have obstructive sleep apnea with a respiratory event index of 11 with O2 desaturation to lows of 74%. I reviewed these findings with her. Certainly treatment with CPAP therapy for obstructive sleep apnea can benefit her from a cardiac standpoint as well as regard to chronic liver disease. HST evaluation usually underestimate severity of sleep apnea. Exam (Progress Note) - Constitutional Vitals: Period Temp Pulse Resp BP Sys/Benitez Pulse Ox Last 24 Hr 96.0 F-97.8 F 58-61 16-18 108-133/60-80 94-98 Exam: She is alert and responsive in no acute distress. Pupils equal round reactive to light and accommodation. Extraocular movements intact. Oropharynx with a class III Mallampati exam. Neck supple without adenopathy. Chest with good air movement and no focal wheeze or rhonchi. Cardiac exam reveals a regular rhythm without murmur or gallop. Abdomen soft nontender without palpable hepatosplenomegaly or mass. Extremities are without clubbing, cyanosis, or edema. Neurologically, she is grossly intact. Results - Labs CBC & BMP: 11/06/16 04:01 11/06/16 04:01 Lab Results: I have reviewed the past 24 hour labs Specialty Discharge - Follow Up or Referrals Follow up with: Shana Wang MD [Physician] - 1 Week
--- NOTE | 2016-11-06 13:38 | Cardiology Progress Note ---
<Keisha Delacruz E - Last Filed: 11/06/16 13:25> Assessment and Plan - Time spent with patient Time spent with patient: Greater than 30 minutes (1) NSTEMI (non-ST elevated myocardial infarction) Status: Acute Assessment and plan: SEE PLAN OF CARE LISTED BELOW Current Visit: Yes (2) CAD (coronary artery disease) Status: Chronic Assessment and plan: SEE PLAN OF CARE LISTED BELOW Current Visit: Yes Qualifiers: Coronary Disease-Associated Artery/Lesion type: [place] artery [place] vs. transplanted heart: [place] heart Associated angina: with stable angina Qualified Code(s): I25.118 - Atherosclerotic heart disease of [place] coronary artery with other forms of angina pectoris (3) Diabetes Status: Chronic Assessment and plan: SEE PLAN OF CARE LISTED BELOW Current Visit: No (4) Hypertension Status: Chronic Assessment and plan: SEE PLAN OF CARE LISTED BELOW Current Visit: No (5) Dyslipidemia Status: Chronic Assessment and plan: SEE PLAN OF CARE LISTED BELOW Current Visit: No (6) Cirrhosis Status: Chronic Assessment and plan: SEE PLAN OF CARE LISTED BELOW Current Visit: No Qualifiers: Ascites presence: without ascites (7) Obesity Status: Chronic Assessment and plan: SEE PLAN OF CARE LISTED BELOW Current Visit: No (8) Angina pectoris Status: Acute Assessment and plan: SEE PLAN OF CARE LISTED BELOW Current Visit: Yes Cardiology - PN: Subj Interval history: TIME RECORDER: DR. WANG SUMMARY: Ms. Shipley, 51WF, was admitted through the ED of [facility] November 01, 2016 with NSTEMI. History of known CAD, hypertension, dyslipidemia, diabetes, nonbleeding esophageal varices, cirrhosis of the liver (stable), anemia, anxiety. Underwent LHC November 02, 2016. Found was diffuse in stent restenosis of the obtuse marginal bare-metal stent, 6 weeks after it was placed. Other vessels were stable, EF 65%. Please see heart catheterization report plan/ recommendation for additional information. NOVEMBER 05, 2016: Patient was kept over the weekend for continued angina. Bisoprolol was initiated in an effort to keep her heart rate low enough to decrease myocardial oxygen demand. Rather than DELTA inhibitor, Amlodipine was favored for anginal management. Plavix was discontinued and Brilinta initiated. This morning, patient continues to have significant shortness of breath, weakness walking to the bathroom. She continues to have chest pain intermittently throughout the day, possibly better overnight. Patient is very tearful this morning. Because she continues to have significant discomfort, shortness of breath I will order a troponin level this morning to see where we stand. Chest x-ray as well. Discontinue nitroglycerin paste and initiate isosorbide. May consider starting Ranexa soon. We could consider repeating echocardiogram, focused study, to evaluate LVEF post infarct considering her shortness of breath. We discussed the possibility of cardiac rehabilitation in her future, however they live too far to drive here routinely. I will further discuss with Dr. Howe and await additional recommendations. NOVEMBER 06, 2016: This morning, patient reports that chest pain persists but is somewhat improved. Shortness of breath however is not. Her nausea has worsened overnight. I discussed with Dr. Wang and she reviewed the films this morning. Dr. Wang is agreeable to re-cath patient tomorrow and hopefully, address the OM lesion. Of note, I did obtain records from Dr. Jessica Martini, Cloth Laminating Supervisor at [facility]. She does have a history of cirrhosis however NO ESOPAHGEAL VARICIES noted on 2 separate EGDs, the last being September 2012. She is chronically anemic, oral iron replacement initiated yesterday. Isosorbide mononitrate restarted yesterday, Ranexa initiated. I will further discuss with Dr. Howe and await additional recommendations. ASSESSMENT/PLAN: 1. NSTEMI - continue with Aspirin, Brilinta, beta venessa, lipid-lowering agent. Favor Norvasc for angina rather than DELTA inhibitor at this point. 2. KNOWN CAD - see [facility]. 3. HYPERTENSION - well-controlled. 4. DYSLIPIDEMIA - continue lipid lowering agent 5. DIABETES - brittle diabetic. Continue home regimen. Holding Valsartan and utilizing Norvasc. 6. HISTORY OF CIRRHOSIS OF LIVER - Stable. Previously followed by Dr. Jessica Martini, Cloth Laminating Supervisor at [facility]. Etiology of cirrhosis of the liver has been unknown. She has not seen a zipper slide attacher in approximately 3 years. 7. ANEMIA - continue home medication of iron. Stable. 8. ANGINA - troponin decreasing. Isosorbide mononitrate and Ranexa on board for 24 hours. Exam (Progress Note) - Constitutional Vitals: Period Temp Pulse Resp BP Sys/Benitez Pulse Ox Last 24 Hr 96.0 F-97.8 F 60-65 16-18 108-148/60-80 94-98 Exam: General: [Pale, pleasant and cooperative. Appears depressed] HEENT: [PERRL, normocephalic, atraumatic. Mucous membranes moist. No jaundice noted. Conjunctiva moist and clear, sclerae anicteric] Neck: No JVD/HJR, no thyromegaly or lymphadenopathy noted. No carotid bruit appreciated Cardiac: [Regular rate and rhythm.] [No obvious murmur, rub or gallop.] Lungs: [Clear to auscultation without accessory muscle use to assist the respiratory pattern.] Using oxygen intermittently Abdomen: Soft, bowel sounds normoactive. Nontender and nondistended. No abdominal bruit or thrill noted. No masses noted. Musculoskeletal: No fluid collection. Decreased range of motion is noted. Extremities: No clubbing, cyanosis noted. [ No edema noted.] Upper extremity pulses 2+. Lower extremity pulses 2+. Capillary refill less than 3 seconds. Skin: No unusual lesions or rashes. No skin breakdown appreciated. Neuro: Awake, alert and oriented 3. Moves all extremities well without hemiparesis or paralysis. No essential tremor is appreciated. Result/EKG - Labs CBC & BMP: 11/06/16 04:01 11/06/16 04:01 Lab Results: I have reviewed the past 24 hour labs Labs: Laboratory Results - last 24 hr 11/05/16 11/05/16 11/06/16 15:13 18:40 04:01 WBC 6.6 RBC 3.84 Hgb 9.7 L Hct 29.4 L MCV 76.6 L MCH 25 L MCHC 33.0 RDW 14.6 Plt Count 173 MPV 9.6 Neut % (Auto) 66.9 Lymph % (Auto) 20.5 L Dare % (Auto) 9.4 Eos % (Auto) 2.1 Baso % (Auto) 0.5 Neut # (Auto) 4.4 Lymph # (Auto) 1.4 Dare # (Auto) 0.6 Eos # (Auto) 0.1 Baso # (Auto) 0.0 Immature Gran % 0.6 Nucleated RBC % 0.0 Immature Gran # 0.04 Nucleated RBCs # 0.00 Sodium Potassium Chloride Carbon Dioxide Anion Gap BUN Creatinine GFR Calculation BUN/Creatinine Ratio Glucose POC Glucose 324 H 237 H Calculated Osmolality Calcium Magnesium 11/06/16 11/06/16 11/06/16 04:01 07:44 12:11 WBC RBC Hgb Hct MCV MCH MCHC RDW Plt Count MPV Neut % (Auto) Lymph % (Auto) Dare % (Auto) Eos % (Auto) Baso % (Auto) Neut # (Auto) Lymph # (Auto) Dare # (Auto) Eos # (Auto) Baso # (Auto) Immature Gran % Nucleated RBC % Immature Gran # Nucleated RBCs # Sodium 142 Potassium 4.0 Chloride 106 Carbon Dioxide 28 Anion Gap 12.0 BUN 23 H Creatinine 1.20 H GFR Calculation 64 BUN/Creatinine Ratio 19.00 Glucose 94 POC Glucose 133 H 140 H Calculated Osmolality 286.1 Calcium 8.6 Magnesium 2.2 - Diagnostic Findings Procedure: Chest x-ray: report reviewed by me - EKG EKG results: interpreted by me EKG shows: sinus rhythm Quality Measures - VTE Contraindication to Pharmacological VTE Prophylaxis: High Risk of Bleeding - Stroke Onset of Symptoms Date: 10/31/16 Onset of Symptoms Time: 15:00 Specialty Discharge - Follow Up or Referrals Follow up with: Shana Wang MD [Physician] - 1 Week <Oscar Howe - Last Filed: 11/06/16 14:53> Cardiology - PN: Subj Interval history: I agree that a percutaneous approach might be of benefit given the fact that the patient has had continued class IV anginal symptoms. Dr. Wang to review. I have discussed in detail the particulars of this case and I have examined the patient and reviewed the patient's chart both current and old. I was directly involved in the patient's evaluation and management and I completely agree with Keisha Delacruz NP regarding this patient's evaluation and treatment plan. Exam (Progress Note) - Constitutional Vitals: Period Temp Pulse Resp BP Sys/Benitez Pulse Ox Last 24 Hr 96.0 F-97.8 F 60-65 16-18 108-148/60-80 94-98 Result/EKG - Labs CBC & BMP: 11/06/16 04:01 11/06/16 04:01 Labs: Laboratory Results - last 24 hr 11/05/16 11/05/16 11/06/16 15:13 18:40 04:01 WBC 6.6 RBC 3.84 Hgb 9.7 L Hct 29.4 L MCV 76.6 L MCH 25 L MCHC 33.0 RDW 14.6 Plt Count 173 MPV 9.6 Neut % (Auto) 66.9 Lymph % (Auto) 20.5 L Dare % (Auto) 9.4 Eos % (Auto) 2.1 Baso % (Auto) 0.5 Neut # (Auto) 4.4 Lymph # (Auto) 1.4 Dare # (Auto) 0.6 Eos # (Auto) 0.1 Baso # (Auto) 0.0 Immature Gran % 0.6 Nucleated RBC % 0.0 Immature Gran # 0.04 Nucleated RBCs # 0.00 Sodium Potassium Chloride Carbon Dioxide Anion Gap BUN Creatinine GFR Calculation BUN/Creatinine Ratio Glucose POC Glucose 324 H 237 H Calculated Osmolality Calcium Magnesium 11/06/16 11/06/16 11/06/16 04:01 07:44 12:11 WBC RBC Hgb Hct MCV MCH MCHC RDW Plt Count MPV Neut % (Auto) Lymph % (Auto) Dare % (Auto) Eos % (Auto) Baso % (Auto) Neut # (Auto) Lymph # (Auto) Dare # (Auto) Eos # (Auto) Baso # (Auto) Immature Gran % Nucleated RBC % Immature Gran # Nucleated RBCs # Sodium 142 Potassium 4.0 Chloride 106 Carbon Dioxide 28 Anion Gap 12.0 BUN 23 H Creatinine 1.20 H GFR Calculation 64 BUN/Creatinine Ratio 19.00 Glucose 94 POC Glucose 133 H 140 H Calculated Osmolality 286.1 Calcium 8.6 Magnesium 2.2
[2016-11-06] MEDS ORDERED: DIAZEPAM 5 MG TABLET PO ONE (13:40)
[2016-11-06] MEDS ORDERED: diphenhydrAMINE CAP 25 MG CAPSULE PO ONE (13:40)
[2016-11-06] MEDS ORDERED: MAGNESIUM SULF RIDER 2 GM in PREMIX 1 EACH IV PRN (13:40)
[2016-11-06] MEDS ORDERED: POTASSIUM CHLORIDE RIDER 10 MEQ in PREMIX 1 EACH IV PRN (13:40)
[2016-11-06] MEDS: ZALEPLON 5 MG CAPSULE PO SCH (21:35)
[2016-11-06] MEDS: PRAVASTATIN 40 MG TABLET PO SCH (21:35)
[2016-11-06] MEDS: SERTRALINE 25 MG TABLET PO SCH (21:36)
[2016-11-07 04:41] LABS: Basophils % 0.3 % (0.0-0.8); Eosinophils # 0.1 10*3/uL (0.0-0.87); Eosinophils % 1.7 % (0.00-10.9); Hematocrit 29.6 VOL% (35.7-47.0); Hemoglobin 9.7 GM/DL (12.0-16.0); Immature Granulocytes % 0.8 %; Immature Granulocytes Absolute 0.05 #; Lymphocytes # 1.5 10*3/uL (1.4-4.0); Lymphocytes % 22.1 % (21.3-54.2); Mean Corpuscular HGB Conc 32.8 GM/DL (32-36); Mean Corpuscular Hemoglobin 25 PG (27-34); Mean Corpuscular Volume 76.5 FL (87-102); Mean Platelet Volume 9.5 FL (9.6-12.0); Monocytes # 0.6 10*3/uL (0.11-0.8); Monocytes % 8.6 % (1.7-12.7); Neutrophils # 4.4 10*3/uL (1.4-7.4); Neutrophils % 66.5 % (38.7-73.9); Platelet Count 178 T/CUMM (130-400); Red Blood Count 3.87 MC/CUMM (3.8-5.5); Red Cell Distribution Width 14.6 % (9.3-17.3); White Blood Count 6.6 T/CUMM (4-12)
[2016-11-07 05:18] LABS: Calcium 8.9 MG/DL (8.5-10.1); Magnesium 2.2 MG/DL (1.8-2.4); Osmolality,Calculated 289.3 MOS/KG (273-304); Potassium 4.1 MMOL/L (3.5-5.1)
[2016-11-07] MEDS: SODIUM CHLORIDE 0.45% 1,000 ML IV SCH ×2 (05:55→21:50)
[2016-11-07] MEDS: INSULIN ASPART PROTAMINE/ASPART 70/30 100 UNIT/ML SUBCUT SCH ×3 (08:48→17:03)
[2016-11-07] MEDS: CIPROFLOXACIN 500 MG TABLET PO SCH ×2 (08:49→21:51)
[2016-11-07] MEDS: BISOPROLOL 5 MG TABLET PO SCH ×2 (08:49→21:51)
[2016-11-07] MEDS: RANOLAZINE 500 MG TABLET PO SCH (08:49)
[2016-11-07] MEDS: TICAGRELOR 90 MG TABLET PO SCH ×2 (08:49→21:51)
[2016-11-07] MEDS: amLODIPine 5 MG TABLET PO SCH (08:50)
[2016-11-07] MEDS: ASPIRIN EC 81 MG TABLET PO SCH (08:50)
[2016-11-07] MEDS: ISOSORBIDE MONONITRATE 30 MG TABLET PO SCH (08:50)
[2016-11-07] MEDS: LINACLOTIDE 145 MCG CAPSULE PO SCH (08:50)
[2016-11-07] MEDS: FERROUS SULFATE 325 MG TABLET PO SCH (08:52)
[2016-11-07] MEDS: INSULIN LISPRO 100 UNIT/ML SUBCUT SCH ×3 (08:53→21:51)
[2016-11-07] MEDS: INSULIN GLARGINE 100 UNIT/ML SUBCUT SCH ×2 (08:54→22:17)
[2016-11-07] MEDS: FUROSEMIDE 20 MG TABLET PO SCH (08:54)
[2016-11-07] MEDS ORDERED: diphenhydrAMINE CAP 25 MG CAPSULE PO ONE (10:00)
[2016-11-07] MEDS ORDERED: DIAZEPAM 5 MG TABLET PO ONE (10:00)
[2016-11-07] MEDS ORDERED: HEPARIN/NACL 0.9% 2 UNITS/ML 1,000 ML IV ONE (13:29)
[2016-11-07] MEDS ORDERED: LIDOCAINE 1% 20 ML VIAL ONE (13:29)
--- NOTE | 2016-11-07 13:36 | Event Note ---
I have discussed this case with Dr. Howe, Dr. Weiner and practitioner early. The patient had a technically challenging PCI to her obtuse marginal artery approximately 6 weeks ago. She has had severe in-stent restenosis with her bare-metal stent. I discussed the case at length with the patient. This is a technically challenging procedure that may be unsuccessful. However, the patient continues to have ongoing chest pain, sometimes at rest, representing persistent unstable angina. We are going to proceed with left heart catheterization and attempted PCI. I conveyed the technically challenging nature of the procedure and possibility of failure with this attempt. She voices understanding. I also conveyed the possibility of injuring the vessel with inability to repair it because it is difficult to deliver a stent to this area. If we are unsuccessful we will continue with medical therapy. While her symptoms are significant, the territory would not warrant bypass surgery.
[2016-11-07] MEDS ORDERED: MIDAZOLAM 2 MG/2 ML VIAL ONE ×2 (13:41→14:15)
[2016-11-07] MEDS ORDERED: fentaNYL 100 MCG/2 ML VIAL ONE (13:41)
[2016-11-07] MEDS ORDERED: BIVALIRUDIN 250 MG VIAL IV ONE (13:48)
[2016-11-07] MEDS ORDERED: fentaNYL 100 MCG/2 ML VIAL IV PRN (15:20)
--- NOTE | 2016-11-07 15:34 | Cardiac Catheterization ---
Date of Procedure:: 11/07/16 Pre-op Diagnosis: Coronary artery disease, non-ST elevation myocardial infarction, refractory angina Post-op diagnosis: same (51-year-old woman with diabetes who had a bare-metal stent placed to obtuse marginal about 6 weeks ago. She also had a stent which was lost off a stent balloon was had to be deployed in the proximal circumflex. She now presents with chest pain off and on for the last 2 days which was worse last night. She has had a non-STEMI, based on enzymes. She is referred for diagnostic catheterization and possible intervention.) Procedure: 1. Percutaneous intervention of the first obtuse marginal artery with placement of Xience 3 x 15 mm drug-eluting stent, postdilated to 3.5 mm. 2. Right iliac angiography to rule out vascular complications. 3. Application of minx hemostasis device to the right femoral arteriotomy site. Impression: 1. Successful PCI of the obtuse marginal artery as described above. 2. Angiographically normal right iliac artery without evidence of vascular complications. Plan: 1. DAPT > 12 months. 2. Risk factor modification. 3. The patient is not going to be continued on statin due to history of cirrhosis. Equipment: 6 Filipino EBU 3.5 guiding catheter, 300 cm Prowater wire, mini trek 2 x 8 mm over the wire balloon, trek 3 x 12 mm rapid exchange balloon, Xience Trek 3 x 15 mm drug-eluting stent, trek 3.5 x 12 mm non-compliant balloon Hemodynamics: Aortic pressure 125/63 mmHg Sedation: Versed 3 mg, fentanyl 75 mcg Procedure: After informed consent was obtained the patient was prepped and draped in sterile fashion. The right groin was infiltrated with 1% lidocaine and the right femoral artery was accessed via modified Seldinger technique using a micropuncture needle and a 6 Filipino femoral arterial sheath was placed. All catheter exchanges were performed over a guidewire under fluoroscopic guidance. The patient was anticoagulated with Angiomax. After appropriate anticoagulation was confirmed with an ACT measurement, a guiding 6 Filipino EBU 3.5 catheter was advanced to the left main artery. A Prowater 300 cm wire was used to traverse the obtuse marginal artery. A mini trek over the wire 2 x 8 mm balloon was advanced to the site of stenosis and angioplasty was performed twice at 14 breanna. An adequate 3 x 12 mm rapid exchange balloon was then advanced to the site of stenosis and angioplasty was performed at 14 breanna. Thereafter, a Xience Trek 3 x 15 mm drug-eluting stent was advanced to the site of angioplasty, and successfully deployed in the previously placed but restenosed stent at 18 breanna. Afterwards, a non-compliant 3.5x12mm trek balloon was advanced into the stented segment and post-dilation was performed at 12 breanna. Satisfactory angiographic result was obtained with appropriate step-up proximally and distally, and no evidence of residual vascular complications. Preoperatively there was 99% stenosis with LELE I flow, postoperatively there is 0% residual stenosis with LELE-3 flow. At conclusion of the procedure right femoral angiography was performed through the sheath to rule out vascular complications. A Mynx hemostasis device was unsuccessfully applied to the right femoral arteriotomy site. Contrast use: Omnipaque 129 cc Fluoro time: 11.2 minutes Complications: none Specimens removed: none Devices implanted: stent and Mynx as described above Anesthesia: local, moderate conscious sedation Surgeon / Physician: Shana Wang Evaluator Transfer Students: none (Lang Lara) Estimated blood loss: minimal Specimens: none sent Condition: stable Disposition: floor - Medications / Follow-up Referrals: Shana Wang MD [Physician] - 1 Week New Prescriptions: Ciprofloxacin Tab [Cipro Tab] 500 mg PO Q12HR #10 tablet Ticagrelor [Brilinta] 90 mg PO BID #60 tablet
--- NOTE | 2016-11-07 15:43 | Discharge Summary ---
Hospital Course - Hospital Course Hospital Course: ACID SPLICER: DR. WANG SUMMARY: Ms. Shipley, 51WF, was admitted through the ED of [facility] November 01, 2016 with NSTEMI. History of known CAD, hypertension, dyslipidemia, diabetes, nonbleeding esophageal varices, cirrhosis of the liver (stable), anemia, anxiety. Underwent LHC November 02, 2016. Found was diffuse in stent restenosis of the obtuse marginal bare-metal stent, 6 weeks after it was placed. Other vessels were stable, EF 65%. Please see heart catheterization report plan/ recommendation for additional information. NOVEMBER 05, 2016: Patient was kept over the weekend for continued angina. Bisoprolol was initiated in an effort to keep her heart rate low enough to decrease myocardial oxygen demand. Rather than DELTA inhibitor, Amlodipine was favored for anginal management. Plavix was discontinued and Brilinta initiated. This morning, patient continues to have significant shortness of breath, weakness walking to the bathroom. She continues to have chest pain intermittently throughout the day, possibly better overnight. Patient is very tearful this morning. Because she continues to have significant discomfort, shortness of breath I will order a troponin level this morning to see where we stand. Chest x-ray as well. Discontinue nitroglycerin paste and initiate isosorbide. May consider starting Ranexa soon. We could consider repeating echocardiogram, focused study, to evaluate LVEF post infarct considering her shortness of breath. We discussed the possibility of cardiac rehabilitation in her future, however they live too far to drive here routinely. I will further discuss with Dr. Howe and await additional recommendations. NOVEMBER 06, 2016: This morning, patient reports that chest pain persists but is somewhat improved. Shortness of breath however is not. Her nausea has worsened overnight. I discussed with Dr. Wang and she reviewed the films this morning. Dr. Wang is agreeable to re-cath patient tomorrow and hopefully, address the OM lesion. Of note, I did obtain records from Dr. Jessica Martini, Associate Professor Of Psychology at [facility]. She does have a history of cirrhosis however NO ESOPAHGEAL VARICIES noted on 2 separate EGDs, the last being September 2012. She is chronically anemic, oral iron replacement initiated yesterday. Isosorbide mononitrate restarted yesterday. Ranexa being avoided due to her history of cirrhosis. Also, avoiding lipid-lowering agents due to her history of cirrhosis. I will further discuss with Dr. Howe and await additional recommendations. NOVEMBER 07, 2016: Patient underwent elective left heart catheterization performed by Dr. Shana Wang. Identified is the following impression: 1. Percutaneous intervention of the first obtuse marginal artery with placement of Xience 3 x 15 mm drug-eluting stent, postdilated to 3.5 mm. 2. Right iliac angiography to rule out vascular complications. 3. Application of minx hemostasis device to the right femoral arteriotomy site. Impression: 1. Successful PCI of the obtuse marginal artery as described above. 2. Angiographically normal right iliac artery without evidence of vascular complications. Plan: 1. DAPT > 12 months. 2. Risk factor modification. 3. The patient is not going to be continued on statin due to history of cirrhosis. NOVEMBER 08, 2016: Overnight, patient is feeling much better. She has some tightness when she lays on her left side. She has been ambulating and in general feeling better. Labs are stable overnight. Right groin is soft, free of hematoma or bruit. She is anxious for release home. Having felt she is met maximal medical therapy, she has been discharged home in stable condition. She will be given a 1-2 week follow-up with Dr. Shana Wang. The following will be obtained at that visit: BMP, magnesium, CBC and EKG. >30 minutes was spent today discussing various things including appropriate diet, exercise and continued medication compliance. Unfortunately, she will not be able to attend cardiac rehab as she does live some distance away from [place], [place]. She will walk at home. Discharge medications include the following: Aspirin 81 mg orally daily Amlodipine 5 mg orally daily Coreg 12.5 mg orally twice daily Lasix 20 mg orally daily Brilinta 90 mg orally twice daily without fail. Diovan 80 mg orally daily Avoiding statin and Ranexa due to her history of cirrhosis of the liver. She will resume her other noncardiac preadmission medications as well - Time spent with patient Time with patient DS: Greater than 30 minutes Diagnosis - Discharge Diagnosis (1) NSTEMI (non-ST elevated myocardial infarction) Status: Resolved (2) CAD (coronary artery disease) Status: Chronic (3) Diabetes Status: Chronic (4) Hypertension Status: Chronic (5) Dyslipidemia Status: Chronic (6) Cirrhosis Status: Chronic (7) Obesity Status: Chronic (8) Angina pectoris Status: Resolved Specialty Discharge - Follow Up or Referrals Follow up with: Shana Wang MD [Physician] - 11/14/16 2:40 pm (1 - 2 weeks. BMP, Mg, CBC, EKG) Discharge Plan - Discharge Data Disposition: Disch To Home/Self Care Condition at Discharge: Stable Discharge Diet: heart healthy Activity: other (Post cath expectations) Hygiene: other (Post cath expectations) Weight Bearing at Discharge: other (Post cath expectations) Driving: other (Post cath expectations) Contact your physician if you experience:: fever over 101, Difficulty voiding, Redness or swelling, Nausea/Vomiting, Shortness of breath, Bleeding, pain uncontrolled by pain medications - Discharge Medications New Ticagrelor [Brilinta] 90 mg PO BID #60 tablet Ciprofloxacin Tab [Cipro Tab] 500 mg PO Q12HR #10 tablet Continue Insulin Aspart [NovoLOG FlexPen] 40 unit SUBCUT TID Aspirin [Ecotrin] 81 mg PO DAILY Ergocalciferol (Vitamin D2) [Vitamin D2] 50,000 unit PO Q7D Linaclotide [Linzess] 145 mcg PO DAILY Furosemide Tab [Lasix Tab] 20 mg PO DAILY Valsartan [Diovan] 80 mg PO DAILY Ferrous Sulfate [Iron] 325 mg PO DAILY Carvedilol [Coreg] 12.5 mg PO BID Insulin Glargine,Hum.rec.anlog [Lantus SoloStar] 50 unit SUBCUT BID Discontinued Clopidogrel [Plavix] 75 mg PO DAILY #30 tablet Pravastatin Sodium 40 mg PO BEDTIME #0 - Follow Up or Referral Follow Up: Shana Wang MD [Physician] - 11/14/16 2:40 pm (1 - 2 weeks. BMP, Mg, CBC, EKG) - Forms/Instructions Instructions: Myocardial Infarction (GEN), Left Heart Catheterization (DC), Low Fat Diet (GEN), Heart Healthy Diet (GEN), Shopping for a Healthy Diet (GEN) , Low Sodium Diet (GEN) Exam - Constitutional Vitals: Period Temp Pulse Resp BP Sys/Benitez Pulse Ox Last 24 Hr 97.8 F-99.2 F 58-67 16-18 97-142/50-72 93-99 Exam: General: [Pale, pleasant and cooperative. Appears depressed] HEENT: [PERRL, normocephalic, atraumatic. Mucous membranes moist. No jaundice noted. Conjunctiva moist and clear, sclerae anicteric] Neck: No JVD/HJR, no thyromegaly or lymphadenopathy noted. No carotid bruit appreciated Cardiac: [Regular rate and rhythm.] [No obvious murmur, rub or gallop.] Lungs: [Clear to auscultation without accessory muscle use to assist the respiratory pattern.] Not requiring oxygen Abdomen: Soft, bowel sounds normoactive. Nontender and nondistended. No abdominal bruit or thrill noted. No masses noted. Musculoskeletal: No fluid collection. Decreased range of motion is noted. Extremities: Right groin soft, free of hematoma or bruit. No clubbing, cyanosis noted. [ No edema noted.] Upper extremity pulses 2+. Lower extremity pulses 2+. Capillary refill less than 3 seconds. Skin: No unusual lesions or rashes. No skin breakdown appreciated. Neuro: Awake, alert and oriented 3. Moves all extremities well without hemiparesis or paralysis. No essential tremor is appreciated. Discharge Results Procedures and tests throughout hospitalization: Pending Orders 11/07/16 13:34 CL heart Routine 11/08/16 04:00 BMP w/ Mg [Basic Metabolic Panel w/Mg] IN AM CBC [Comp Blood Count Auto Diff] IN AM 11/09/16 04:00 BMP w/ Mg [Basic Metabolic Panel w/Mg] IN AM CBC [Comp Blood Count Auto Diff] IN AM Labs on day of discharge: Labs from last 24 hours 11/07/16 11/07/16 11/07/16 11:59 08:01 03:48 WBC RBC Hgb Hct MCV MCH MCHC RDW Plt Count MPV Neut % (Auto) Lymph % (Auto) Woods % (Auto) Eos % (Auto) Baso % (Auto) Neut # (Auto) Lymph # (Auto) Woods # (Auto) Eos # (Auto) Baso # (Auto) Immature Gran % Nucleated RBC % Immature Gran # Nucleated RBCs # Sodium 141 Potassium 4.1 Chloride 103 Carbon Dioxide 29 Anion Gap 13.1 BUN 21 H Creatinine 1.30 H GFR Calculation 58 BUN/Creatinine Ratio 16.00 Glucose 212 H POC Glucose 261 H 292 H Calculated Osmolality 289.3 Calcium 8.9 Magnesium 2.2 11/07/16 11/06/16 11/06/16 03:48 21:37 16:17 WBC 6.6 RBC 3.87 Hgb 9.7 L Hct 29.6 L MCV 76.5 L MCH 25 L MCHC 32.8 RDW 14.6 Plt Count 178 MPV 9.5 L Neut % (Auto) 66.5 Lymph % (Auto) 22.1 Woods % (Auto) 8.6 Eos % (Auto) 1.7 Baso % (Auto) 0.3 Neut # (Auto) 4.4 Lymph # (Auto) 1.5 Woods # (Auto) 0.6 Eos # (Auto) 0.1 Baso # (Auto) 0.0 Immature Gran % 0.8 Nucleated RBC % 0.0 Immature Gran # 0.05 Nucleated RBCs # 0.00 Sodium Potassium Chloride Carbon Dioxide Anion Gap BUN Creatinine GFR Calculation BUN/Creatinine Ratio Glucose POC Glucose 208 H 119 H Calculated Osmolality Calcium Magnesium - Imaging and Cardiology Cardiology Procedure: report reviewed by me Procedure: Chest x-ray: report reviewed by me DS: Provider Date of admission: 11/01/16 23:18 Primary care physician: . No PCP Attending physician on admission: Shana Wang, Consults: 11/02/16 02:49 Consult to Pastoral Services [CONS] Routine Comment: Pastoral Screen: Request Stable Attendant Visit 11/02/16 11:44 Consult to Cardiac Rehabilitation [CONS] Routine Reason for Cardiac Rehabilitation: Risk Factor Modification Home Exercise Program/[facility] Appt Out Pt Cardiac Rehab 11/05/16 12:30 Consult to Sleep Center [CONS] Routine Reason for Sleep Center: Sleep Center Physician Consult Comment: symptoms concerning for sleep apnea 11/07/16 15:21 Consult to Cardiac Rehabilitation [CONS] Routine Reason for Cardiac Rehabilitation: Other Consult Comment: Pt requests diet counseling Discharging clinician: Keisha Delacruz NP Expected date of discharge: 11/08/16
--- NOTE | 2016-11-07 17:45 | Sleep Medicine Progress Note ---
Assessment and Plan (1) Unspecified sleep apnea Status: Acute Assessment and plan: Patient will continue on CPAP auto titration with follow-up in sleep clinic after discharge. Current Visit: Yes (2) Coronary artery disease Status: Chronic Current Visit: No (3) Diabetes Status: Chronic Current Visit: No (4) Hypertension Status: Chronic Current Visit: No Sleep Medicine Subjective Interval history: Patient did wear CPAP for about an hour and a half last night and did sleep but had a significant mask leak. We are going work on her mask fit and see if she does better. She did have better control of her sleep apnea with CPAP and we will follow-up her results. Exam (Progress Note) - Constitutional Vitals: Period Temp Pulse Resp BP Sys/Benitez Pulse Ox Last 24 Hr 97.6 F-99.2 F 56-68 16-20 107-142/56-72 93-99 Results - Labs CBC & BMP: 11/07/16 03:48 11/07/16 03:48 Specialty Discharge - Follow Up or Referrals Follow up with: Shana Wang MD [Physician] - (1 - 2 weeks. BMP, Mg, CBC, EKG)
[2016-11-07] MEDS: SERTRALINE 25 MG TABLET PO SCH (21:51)
[2016-11-07] MEDS: ZALEPLON 5 MG CAPSULE PO SCH (21:54)
[2016-11-08] MEDS: INSULIN GLARGINE 100 UNIT/ML SUBCUT SCH ×2 (00:31→08:47)
[2016-11-08] MEDS: ONDANSETRON 4 MG/2 ML VIAL IV PRN (02:39)
[2016-11-08 04:54] LABS: Basophils % 0.4 % (0.0-0.8); Eosinophils # 0.1 10*3/uL (0.0-0.87); Eosinophils % 1.6 % (0.00-10.9); Hematocrit 32.3 VOL% (35.7-47.0); Hemoglobin 10.9 GM/DL (12.0-16.0); Immature Granulocytes % 0.4 %; Immature Granulocytes Absolute 0.03 #; Lymphocytes # 1.1 10*3/uL (1.4-4.0); Lymphocytes % 15.4 % (21.3-54.2); Mean Corpuscular HGB Conc 33.7 GM/DL (32-36); Mean Corpuscular Hemoglobin 26 PG (27-34); Mean Corpuscular Volume 75.6 FL (87-102); Monocytes # 0.6 10*3/uL (0.11-0.8); Monocytes % 8.5 % (1.7-12.7); Neutrophils # 5.2 10*3/uL (1.4-7.4); Neutrophils % 73.7 % (38.7-73.9); Platelet Count 171 T/CUMM (130-400); Red Blood Count 4.27 MC/CUMM (3.8-5.5); Red Cell Distribution Width 14.6 % (9.3-17.3)
[2016-11-08 05:25] LABS: Calcium 8.4 MG/DL (8.5-10.1); Magnesium 2.2 MG/DL (1.8-2.4); Osmolality,Calculated 277.7 MOS/KG (273-304); Potassium 4.5 MMOL/L (3.5-5.1)
[2016-11-08 08:11] VITALS: BP 134/61
[2016-11-08] MEDS: TICAGRELOR 90 MG TABLET PO SCH (08:45)
[2016-11-08] MEDS: amLODIPine 5 MG TABLET PO SCH (08:45)
[2016-11-08] MEDS: CIPROFLOXACIN 500 MG TABLET PO SCH (08:46)
[2016-11-08] MEDS: BISOPROLOL 5 MG TABLET PO SCH (08:46)
[2016-11-08] MEDS: ASPIRIN EC 81 MG TABLET PO SCH (08:46)
[2016-11-08] MEDS: ISOSORBIDE MONONITRATE 30 MG TABLET PO SCH (08:46)
[2016-11-08] MEDS: FUROSEMIDE 20 MG TABLET PO SCH (08:46)
[2016-11-08] MEDS: INSULIN ASPART PROTAMINE/ASPART 70/30 100 UNIT/ML SUBCUT SCH ×2 (08:47→12:18)
[2016-11-08] MEDS: INSULIN LISPRO 100 UNIT/ML SUBCUT SCH (08:48)
[2016-11-08] MEDS: FERROUS SULFATE 325 MG TABLET PO SCH (08:49)
[2016-11-08] MEDS: SODIUM CHLORIDE 0.45% 1,000 ML IV SCH (08:49)
[2016-11-08] MEDS: LINACLOTIDE 145 MCG CAPSULE PO SCH (08:49)
== END 2016-11-08 12:29 | disposition home or self-care (01) | DRG 247 ==
LOC: N.ED 20:45 → N.EDINP 23:18 → N.TELES 11-02 00:33
PROVIDERS: ADMIT Internal Medicine Cardiovascular Disease; ATTEND Internal Medicine Cardiovascular Disease
PROC: CLCCHCL (ICD-10-PCS; 2016-11-02 11:15)

== ENCOUNTER 2017-04-29 15:47 | Inpatient (IN) ==
[2017-04-29] MEDS ORDERED: NITROGLYCERIN 2% OINT 1 INCH/GM PACK TOP STA (19:33)
[2017-04-29] MEDS ORDERED: ASPIRIN 325 MG TABLET PO STA (19:33)
[2017-04-29] MEDS ORDERED: INSULIN REGULAR 100 UNIT/ML IV STA (19:43)
[2017-04-29] MEDS ORDERED: NITROGLYCERIN 2% OINT 1 INCH/GM PACK TOP ONE (19:46)
[2017-04-29] MEDS ORDERED: ASPIRIN 325 MG TABLET ONE (19:46)
[2017-04-29] MEDS ORDERED: INSULIN REGULAR 100 UNIT/ML ONE (19:48)
[2017-04-29 20:07] LABS: Basophils % 0.4 % (0.0-0.8); Eosinophils # 0.1 10*3/uL (0.0-0.87); Eosinophils % 1.6 % (0.00-10.9); Hematocrit 32.6 VOL% (35.7-47.0); Hemoglobin 10.5 GM/DL (12.0-16.0); Immature Granulocytes % 0.6 %; Immature Granulocytes Absolute 0.03 #; Lymphocytes # 1.6 10*3/uL (1.4-4.0); Lymphocytes % 30.6 % (21.3-54.2); Mean Corpuscular HGB Conc 32.2 GM/DL (32-36); Mean Corpuscular Hemoglobin 24 PG (27-34); Mean Corpuscular Volume 73.9 FL (87-102); Mean Platelet Volume 9.6 FL (9.6-12.0); Monocytes # 0.4 10*3/uL (0.11-0.8); Monocytes % 6.9 % (1.7-12.7); Neutrophils # 3.1 10*3/uL (1.4-7.4); Neutrophils % 59.9 % (38.7-73.9); Platelet Count 152 T/CUMM (130-400); Red Blood Count 4.41 MC/CUMM (3.8-5.5); Red Cell Distribution Width 14.9 % (9.3-17.3); White Blood Count 5.1 T/CUMM (4-12)
[2017-04-29 20:10] LABS: Albumin 3.4 G/DL (3.4-5.0); Bilirubin,Total 0.4 MG/DL (0.2-1.0); Osmolality,Calculated 287.1 MOS/KG (273-304); Potassium 4.7 MMOL/L (3.5-5.1); Total Protein 7.8 G/DL (6.4-8.3)
[2017-04-29] MEDS ORDERED: DEXTROSE 50% 25 GM/50 ML VIAL IV PRN (20:57)
[2017-04-29] MEDS ORDERED: GLUCAGON 1 MG VIAL IM PRN (20:57)
[2017-04-30] MEDS ORDERED: PNEUMOCOCCAL VACCINE (23 VALENT) 0.5 ML VIAL IM ONE (05:00)
[2017-04-30] MEDS ORDERED: guaiFENesin/DM ER 600-30 MG TABLET PO PRN (07:54)
[2017-04-30] MEDS ORDERED: MAGNESIUM SULF RIDER 4 GM in PREMIX 1 EACH IV PRN (07:54)
[2017-04-30] MEDS ORDERED: diphenhydrAMINE CAP 25 MG CAPSULE PO PRN (07:54)
[2017-04-30] MEDS ORDERED: DOCUSATE SODIUM 100 MG CAPSULE PO PRN (07:54)
[2017-04-30] MEDS ORDERED: MAGNESIUM SULF RIDER 2 GM in PREMIX 1 EACH IV PRN (07:54)
[2017-04-30] MEDS ORDERED: LACTULOSE 20 GM/30 ML UDCUP PO PRN (07:54)
[2017-04-30] MEDS ORDERED: ONDANSETRON 4 MG/2 ML VIAL IV PRN (07:54)
[2017-04-30] MEDS ORDERED: ZALEPLON 5 MG CAPSULE PO PRN (07:54)
[2017-04-30] MEDS ORDERED: GLUCAGON 1 MG VIAL IM PRN (07:57)
[2017-04-30] MEDS ORDERED: DEXTROSE 50% 25 GM/50 ML VIAL IV PRN (07:57)
[2017-04-30] MEDS ORDERED: LINACLOTIDE 145 MCG CAPSULE PO PRN (07:58)
[2017-04-30] MEDS ORDERED: ERGOCALCIFEROL 50,000 UNIT CAPSULE PO SCH (08:00)
[2017-04-30 08:40] LABS: Basophils % 0.3 % (0.0-0.8); Eosinophils # 0.1 10*3/uL (0.0-0.87); Hematocrit 33.1 VOL% (35.7-47.0); Hemoglobin 10.8 GM/DL (12.0-16.0); Immature Granulocytes % 0.5 %; Immature Granulocytes Absolute 0.05 #; Lymphocytes % 11.1 % (21.3-54.2); Mean Corpuscular HGB Conc 32.6 GM/DL (32-36); Mean Corpuscular Hemoglobin 24 PG (27-34); Mean Corpuscular Volume 74.2 FL (87-102); Mean Platelet Volume 9.7 FL (9.6-12.0); Monocytes # 0.6 10*3/uL (0.11-0.8); Monocytes % 6.9 % (1.7-12.7); Neutrophils # 7.3 10*3/uL (1.4-7.4); Neutrophils % 80.2 % (38.7-73.9); Platelet Count 157 T/CUMM (130-400); Red Blood Count 4.46 MC/CUMM (3.8-5.5); Red Cell Distribution Width 15.1 % (9.3-17.3); White Blood Count 9.1 T/CUMM (4-12)
[2017-04-30 09:10] LABS: Osmolality,Calculated 285.7 MOS/KG (273-304); Potassium 4.4 MMOL/L (3.5-5.1)
[2017-04-30] MEDS: INSULIN LISPRO 100 UNIT/ML SUBCUT SCH ×6 (09:12→22:43)
[2017-04-30] MEDS: INSULIN GLARGINE 100 UNIT/ML SUBCUT SCH ×2 (09:12→22:44)
[2017-04-30] MEDS: VALSARTAN 80 MG TABLET PO SCH (09:13)
[2017-04-30] MEDS: FERROUS SULFATE 325 MG TABLET PO SCH (09:13)
[2017-04-30] MEDS: ENOXAPARIN 40 MG/0.4 ML SYRINGE SUBCUT SCH (09:13)
[2017-04-30 09:14] LABS: Risk Ratio 4.71; Troponin I Only < 0.015 NG/ML (0.00-0.045)
[2017-04-30] MEDS: PRASUGREL 10 MG TABLET PO SCH (09:14)
[2017-04-30] MEDS: AMOXICILLIN 500 MG CAPSULE PO SCH ×2 (09:14→22:42)
[2017-04-30] MEDS: FUROSEMIDE 20 MG TABLET PO SCH (09:14)
[2017-04-30] MEDS: ASPIRIN EC 81 MG TABLET PO SCH (09:14)
[2017-04-30] MEDS: PANTOPRAZOLE 40 MG TABLET PO SCH (09:14)
[2017-04-30] MEDS: NEBIVOLOL 5 MG TABLET PO SCH (09:14)
[2017-04-30 09:34] LABS: Apearance,Urine CLOUDY (Clear); Bacteria,Urine Many /HPF (Few); Bilirubin,Urine Negative (Negative); Blood, Urine Small mg/dL (Negative); Glucose,Urine (UA) 150 mg/dL (Negative); Ketones,Urine Negative (Negative); Nitrite,Urine Negative (Negative); Protein,Urine 100 MG/DL; RBC,Urine 7 /HPF (0-4); Squamous Epithelial Cell,Urine Occasional /HPF (0-10); Urine Color Yellow (Yellow); Urine Specific Gravity 1.014 (1.001-1.035); WBC,Urine 541 /HPF (0-6)
[2017-04-30] MEDS: ACETAMINOPHEN 325 MG TABLET PO PRN ×2 (18:09→22:41)
[2017-04-30] MEDS: CIPROFLOXACIN 250 MG TABLET PO SCH (22:42)
[2017-05-01 06:00] LABS: Basophils % 0.4 % (0.0-0.8); Eosinophils # 0.1 10*3/uL (0.0-0.87); Eosinophils % 1.7 % (0.00-10.9); Immature Granulocytes % 0.4 %; Immature Granulocytes Absolute 0.02 #; Lymphocytes # 1.5 10*3/uL (1.4-4.0); Lymphocytes % 30.8 % (21.3-54.2); Mean Corpuscular HGB Conc 32.3 GM/DL (32-36); Mean Corpuscular Hemoglobin 24 PG (27-34); Mean Corpuscular Volume 74.7 FL (87-102); Monocytes # 0.4 10*3/uL (0.11-0.8); Monocytes % 9.1 % (1.7-12.7); Neutrophils # 2.8 10*3/uL (1.4-7.4); Neutrophils % 57.6 % (38.7-73.9); Platelet Count 144 T/CUMM (130-400); Red Blood Count 4.15 MC/CUMM (3.8-5.5); Red Cell Distribution Width 15.2 % (9.3-17.3); White Blood Count 4.8 T/CUMM (4-12)
[2017-05-01 06:26] LABS: Calcium 8.5 MG/DL (8.5-10.1)
[2017-05-01 06:27] LABS: Magnesium 2.3 MG/DL (1.8-2.4); Osmolality,Calculated 287.1 MOS/KG (273-304); Potassium 3.8 MMOL/L (3.5-5.1)
[2017-05-01] MEDS: INSULIN LISPRO 100 UNIT/ML SUBCUT SCH ×7 (09:20→22:34)
[2017-05-01] MEDS: AMOXICILLIN 500 MG CAPSULE PO SCH ×2 (09:57→20:36)
[2017-05-01] MEDS: CIPROFLOXACIN 250 MG TABLET PO SCH ×2 (09:57→20:36)
[2017-05-01] MEDS: VALSARTAN 80 MG TABLET PO SCH (09:57)
[2017-05-01] MEDS: FUROSEMIDE 20 MG TABLET PO SCH (09:58)
[2017-05-01] MEDS: PANTOPRAZOLE 40 MG TABLET PO SCH (09:58)
[2017-05-01] MEDS: FERROUS SULFATE 325 MG TABLET PO SCH (09:58)
[2017-05-01] MEDS: PRASUGREL 10 MG TABLET PO SCH (09:58)
[2017-05-01] MEDS: ASPIRIN EC 81 MG TABLET PO SCH (09:58)
[2017-05-01] MEDS: ENOXAPARIN 40 MG/0.4 ML SYRINGE SUBCUT SCH (09:59)
[2017-05-01] MEDS: NEBIVOLOL 5 MG TABLET PO SCH (09:59)
[2017-05-01] MEDS: INSULIN GLARGINE 100 UNIT/ML SUBCUT SCH ×2 (10:00→21:33)
[2017-05-01] MEDS: ISOSORBIDE MONONITRATE 30 MG TABLET PO SCH (16:08)
[2017-05-01] MEDS: PHENAZOPYRIDINE 95 MG TABLET PO SCH (18:15)
[2017-05-01] MEDS ORDERED: EZETIMIBE 10 MG TABLET PO SCH (21:00)
[2017-05-02 03:34] LABS: Basophils % 0.5 % (0.0-0.8); Eosinophils # 0.1 10*3/uL (0.0-0.87); Eosinophils % 2.2 % (0.00-10.9); Hemoglobin 10.2 GM/DL (12.0-16.0); Immature Granulocytes % 0.5 %; Immature Granulocytes Absolute 0.02 #; Lymphocytes # 1.5 10*3/uL (1.4-4.0); Lymphocytes % 37.1 % (21.3-54.2); Mean Corpuscular HGB Conc 32.9 GM/DL (32-36); Mean Corpuscular Hemoglobin 24 PG (27-34); Mean Corpuscular Volume 72.9 FL (87-102); Mean Platelet Volume 9.9 FL (9.6-12.0); Monocytes # 0.5 10*3/uL (0.11-0.8); Neutrophils % 47.7 % (38.7-73.9); Platelet Count 152 T/CUMM (130-400); Red Blood Count 4.25 MC/CUMM (3.8-5.5); Red Cell Distribution Width 15.1 % (9.3-17.3); White Blood Count 4.1 T/CUMM (4-12)
[2017-05-02 04:00] LABS: Calcium 8.6 MG/DL (8.5-10.1); Magnesium 2.2 MG/DL (1.8-2.4); Osmolality,Calculated 287.7 MOS/KG (273-304); Potassium 3.9 MMOL/L (3.5-5.1)
[2017-05-02] MEDS: ISOSORBIDE MONONITRATE 30 MG TABLET PO SCH (08:31)
[2017-05-02] MEDS: PANTOPRAZOLE 40 MG TABLET PO SCH (08:32)
[2017-05-02] MEDS: PRASUGREL 10 MG TABLET PO SCH (08:32)
[2017-05-02] MEDS: VALSARTAN 80 MG TABLET PO SCH (08:32)
[2017-05-02] MEDS: PHENAZOPYRIDINE 95 MG TABLET PO SCH ×2 (08:32→17:53)
[2017-05-02] MEDS: FERROUS SULFATE 325 MG TABLET PO SCH (08:33)
[2017-05-02] MEDS: ASPIRIN EC 81 MG TABLET PO SCH (08:33)
[2017-05-02] MEDS: AMOXICILLIN 500 MG CAPSULE PO SCH (08:33)
[2017-05-02] MEDS: NEBIVOLOL 5 MG TABLET PO SCH (08:33)
[2017-05-02] MEDS: FUROSEMIDE 20 MG TABLET PO SCH (08:33)
[2017-05-02] MEDS: INSULIN GLARGINE 100 UNIT/ML SUBCUT SCH (08:34)
[2017-05-02] MEDS: ENOXAPARIN 40 MG/0.4 ML SYRINGE SUBCUT SCH (08:34)
[2017-05-02] MEDS: INSULIN LISPRO 100 UNIT/ML SUBCUT SCH ×5 (08:34→16:56)
[2017-05-02] MEDS: CIPROFLOXACIN 250 MG TABLET PO SCH (08:39)
[2017-05-02 11:39] LABS: Alanine Aminotransferase 30 U/L (13-56); Albumin 3.2 G/DL (3.4-5.0); Alkaline Phosphatase 104 U/L (45-117); Aspartate Amino Transferase 25 U/L (0-37); Bilirubin,Direct < 0.100 MG/DL (0.0-0.20); Bilirubin,Indirect 0.6 MG/DL (0.0-1.0); Total Protein 6.7 G/DL (6.4-8.3)
[2017-05-02] MEDS ORDERED: FLUCONAZOLE 150 MG TABLET PO SCH (16:00)
[2017-05-02 17:25] VITALS: BP 114/60
[2017-05-02] MEDS ORDERED: ISOSORBIDE MONONITRATE 30 MG TABLET PO SCH (21:00)
[2017-05-03] MEDS ORDERED: ISOSORBIDE MONONITRATE 30 MG TABLET PO SCH (09:00)
== END 2017-05-02 17:58 | disposition home or self-care (01) | DRG 313 ==
LOC: N.ED 15:47 → N.EDINP 20:57 → N.TELEN 21:47
PROVIDERS: ADMIT Internal Medicine Clinical Cardiac Electrophysiology; ATTEND Internal Medicine Clinical Cardiac Electrophysiology

== ENCOUNTER 2018-07-04 13:13 | Inpatient (IN) ==
[2018-07-04 15:12] LABS: Basophils % 0.4 % (0.0-0.8); Eosinophils # 0.1 10*3/uL (0.0-0.87); Eosinophils % 1.1 % (0.00-10.9); Hemoglobin 9.7 GM/DL (12.0-16.0); Immature Granulocytes % 0.6 %; Immature Granulocytes Absolute 0.03 #; Lymphocytes % 17.9 % (21.3-54.2); Mean Corpuscular HGB Conc 31.3 GM/DL (32-36); Mean Corpuscular Hemoglobin 23 PG (27-34); Mean Corpuscular Volume 74.9 FL (87-102); Mean Platelet Volume 9.3 FL (9.6-12.0); Monocytes # 0.5 10*3/uL (0.11-0.8); Monocytes % 8.9 % (1.7-12.7); Neutrophils # 3.8 10*3/uL (1.4-7.4); Neutrophils % 71.1 % (38.7-73.9); Platelet Count 155 T/CUMM (130-400); Red Blood Count 4.14 MC/CUMM (3.8-5.5); Red Cell Distribution Width 15.1 % (9.3-17.3); White Blood Count 5.3 T/CUMM (4-12)
[2018-07-04 15:21] LABS: INR 0.9; PT Patient Result 10.2 SECS; Partial Thromboplastin Time 24.2 SECS (0-40)
[2018-07-04] MEDS ORDERED: CEFTAROLINE 600 MG in SODIUM CHLORIDE 0.9% 100 ML IV STA (15:39)
[2018-07-04] MEDS ORDERED: ONDANSETRON 4 MG/2 ML VIAL IV STA (15:39)
[2018-07-04] MEDS ORDERED: FUROSEMIDE 100 MG/10 ML VIAL IV STA (15:39)
[2018-07-04 15:51] LABS: Albumin 3.2 G/DL (3.4-5.0); Bilirubin,Total 1.2 MG/DL (0.2-1.0); CKMB % 2.6 %; Calcium 8.9 MG/DL (8.5-10.1); Osmolality,Calculated 284.4 MOS/KG (273-304); Potassium 4.3 MMOL/L (3.5-5.1); Total Protein 7.6 G/DL (6.4-8.3)
[2018-07-04 15:54] LABS: Troponin I 13.7 NG/ML (0.00-0.045)
[2018-07-04] MEDS ORDERED: ALBUTEROL 2.5 MG/3 ML NEB RESP TX SCH (16:00)
[2018-07-04] MEDS ORDERED: ASPIRIN EC 325 MG TABLET PO STA (16:02)
[2018-07-04] MEDS ORDERED: ENOXAPARIN 100 MG/ML SYRINGE SUBCUT STA (16:02)
[2018-07-04 16:06] LABS: Amylase 22 U/L (25-115); Lipase < 50.0 U/L (73-393)
[2018-07-04 16:32] LABS: Apearance,Urine CLEAR (Clear); Bilirubin,Urine Negative (Negative); Blood, Urine Moderate mg/dL (Negative); Glucose,Urine (UA) >=500 mg/dL (Negative); Hyaline Casts,Urine 1 /LPF (0-3); Ketones,Urine Negative (Negative); Mucus,Urine Occasional /LPF (Occasional); Nitrite,Urine Negative (Negative); Protein,Urine 100 MG/DL; RBC,Urine 4 /HPF (0-4); Urine Color Yellow (Yellow); Urine Specific Gravity 1.013 (1.001-1.035); Urine Urobilinogen < 2.0 EU/DL (0.2-1.0); WBC,Urine 1 /HPF (0-6)
[2018-07-04] MEDS ORDERED: OSELTAMIVIR 75 MG CAPSULE PO SCH (17:30)
[2018-07-04] MEDS ORDERED: ONDANSETRON 4 MG/2 ML VIAL IV PRN (18:11)
[2018-07-04] MEDS ORDERED: ACETAMINOPHEN 325 MG TABLET PO PRN (18:11)
[2018-07-04] MEDS ORDERED: DEXTROSE 50% 25 GM/50 ML SYRINGE IV PRN (18:23)
[2018-07-04] MEDS ORDERED: GLUCAGON 1 MG VIAL IM PRN (18:23)
[2018-07-04] MEDS ORDERED: PROMETHAZINE INJ 25 MG in SODIUM CHLORIDE 0.9% 50 ML IV PRN (18:41)
[2018-07-04] MEDS: ALBUTEROL/IPRATROPIUM 3 ML NEB RESP TX SCH (19:51)
[2018-07-04] MEDS: INSULIN LISPRO 100 UNIT/ML SUBCUT SCH ×2 (22:28→22:31)
[2018-07-04] MEDS: INSULIN GLARGINE 100 UNIT/ML SUBCUT SCH (22:29)
[2018-07-04] MEDS: OLMESARTAN 20 MG TABLET PO SCH (22:32)
[2018-07-04 22:35] LABS: CKMB % 1.8 %
[2018-07-04 22:36] LABS: Troponin I 8.74 NG/ML (0.00-0.045)
[2018-07-04] MEDS: ONDANSETRON 4 MG TABLET PO SCH (22:46)
[2018-07-04 22:56] LABS: Apearance,Urine CLOUDY (Clear); Bacteria,Urine Occasional /HPF (Few); Bilirubin,Urine Negative (Negative); Blood, Urine Large mg/dL (Negative); Glucose,Urine (UA) 150 mg/dL (Negative); Hyaline Casts,Urine 31 /LPF (0-3); Ketones,Urine Negative (Negative); Mucus,Urine Occasional /LPF (Occasional); Nitrite,Urine Negative (Negative); Protein,Urine 100 MG/DL; RBC,Urine 100 /HPF (0-4); Renal Epithelial Cells,Urine Occasional /HPF (<1); Squamous Epithelial Cell,Urine Occasional /HPF (0-10); Urine Color Yellow (Yellow); Urine Specific Gravity 1.011 (1.001-1.035); Urine Urobilinogen < 2.0 EU/DL (0.2-1.0); WBC,Urine 36 /HPF (0-6)
[2018-07-05] MEDS: ALBUTEROL/IPRATROPIUM 3 ML NEB RESP TX SCH ×4 (00:56→18:59)
[2018-07-05] MEDS: guaiFENesin/CODEINE 5 ML LIQUID PO PRN ×2 (02:50→11:27)
[2018-07-05] MEDS: ONDANSETRON 4 MG TABLET PO SCH ×4 (04:10→22:10)
[2018-07-05 05:02] LABS: Basophils % 0.2 % (0.0-0.8); Eosinophils # 0.1 10*3/uL (0.0-0.87); Hemoglobin 8.4 GM/DL (12.0-16.0); Immature Granulocytes % 0.5 %; Immature Granulocytes Absolute 0.02 #; Lymphocytes # 1.4 10*3/uL (1.4-4.0); Lymphocytes % 33.2 % (21.3-54.2); Mean Corpuscular HGB Conc 31.1 GM/DL (32-36); Mean Corpuscular Hemoglobin 24 PG (27-34); Mean Corpuscular Volume 75.8 FL (87-102); Mean Platelet Volume 9.9 FL (9.6-12.0); Monocytes # 0.6 10*3/uL (0.11-0.8); Monocytes % 13.8 % (1.7-12.7); Neutrophils # 2.1 10*3/uL (1.4-7.4); Neutrophils % 50.3 % (38.7-73.9); Platelet Count 139 T/CUMM (130-400); Red Blood Count 3.56 MC/CUMM (3.8-5.5); Red Cell Distribution Width 15.3 % (9.3-17.3); White Blood Count 4.1 T/CUMM (4-12)
[2018-07-05 05:21] LABS: CKMB % 1.5 %
[2018-07-05 05:22] LABS: Troponin I 6.69 NG/ML (0.00-0.045)
[2018-07-05 05:29] LABS: Calcium 8.4 MG/DL (8.5-10.1); Osmolality,Calculated 284.4 MOS/KG (273-304); Potassium 3.8 MMOL/L (3.5-5.1); Risk Ratio 4.6; VLDL CHOLESTEROL 29.6 MG/DL
[2018-07-05] MEDS: ENOXAPARIN 100 MG/ML SYRINGE SUBCUT SCH ×2 (05:37→17:07)
[2018-07-05] MEDS: INSULIN LISPRO 100 UNIT/ML SUBCUT SCH ×7 (08:35→22:10)
[2018-07-05] MEDS: sitaGLIPtin 100 MG TABLET PO SCH (08:36)
[2018-07-05] MEDS: ASPIRIN EC 81 MG TABLET PO SCH (08:51)
[2018-07-05] MEDS: PRASUGREL 10 MG TABLET PO SCH (08:51)
[2018-07-05] MEDS: NEBIVOLOL 5 MG TABLET PO SCH (08:51)
[2018-07-05] MEDS: FLUTICASONE 50 MCG NASAL SPRAY 16 GM BOTTLE BOTH NARES SCH (08:51)
[2018-07-05] MEDS: SIMVASTATIN 20 MG TABLET PO SCH (08:51)
[2018-07-05] MEDS: ISOSORBIDE MONONITRATE 30 MG TABLET PO SCH (08:51)
[2018-07-05] MEDS ORDERED: OLMESARTAN 5 MG TABLET PO SCH (09:00)
[2018-07-05] MEDS ORDERED: GLUCAGON 1 MG VIAL IM PRN (09:16)
[2018-07-05] MEDS ORDERED: DEXTROSE 50% 25 GM/50 ML VIAL IV PRN (09:16)
[2018-07-05] MEDS: EZETIMIBE 10 MG TABLET PO SCH (09:22)
[2018-07-05] MEDS: OLMESARTAN 20 MG TABLET PO SCH ×2 (09:22→22:07)
[2018-07-05 09:33] LABS: % Iron Saturation 10.9 % (18-50)
[2018-07-05] MEDS: traMADol 50 MG TABLET PO PRN ×2 (11:28→22:17)
[2018-07-05] MEDS: INSULIN GLARGINE 100 UNIT/ML SUBCUT SCH (22:11)
[2018-07-06] MEDS: ALBUTEROL/IPRATROPIUM 3 ML NEB RESP TX SCH ×4 (01:20→19:35)
[2018-07-06 04:50] LABS: Basophils % 0.2 % (0.0-0.8); Eosinophils # 0.1 10*3/uL (0.0-0.87); Eosinophils % 2.7 % (0.00-10.9); Hematocrit 25.7 VOL% (35.7-47.0); Hemoglobin 7.8 GM/DL (12.0-16.0); Immature Granulocytes % 0.5 %; Immature Granulocytes Absolute 0.02 #; Lymphocytes # 1.2 10*3/uL (1.4-4.0); Lymphocytes % 28.2 % (21.3-54.2); Mean Corpuscular HGB Conc 30.4 GM/DL (32-36); Mean Corpuscular Hemoglobin 23 PG (27-34); Mean Corpuscular Volume 76.9 FL (87-102); Mean Platelet Volume 9.3 FL (9.6-12.0); Monocytes # 0.5 10*3/uL (0.11-0.8); Monocytes % 11.9 % (1.7-12.7); Neutrophils # 2.3 10*3/uL (1.4-7.4); Neutrophils % 56.5 % (38.7-73.9); Platelet Count 138 T/CUMM (130-400); Red Blood Count 3.34 MC/CUMM (3.8-5.5); Red Cell Distribution Width 15.4 % (9.3-17.3); White Blood Count 4.1 T/CUMM (4-12)
[2018-07-06 05:43] LABS: Calcium 7.9 MG/DL (8.5-10.1); Potassium 3.9 MMOL/L (3.5-5.1)
[2018-07-06] MEDS: ENOXAPARIN 100 MG/ML SYRINGE SUBCUT SCH ×2 (06:50→17:04)
[2018-07-06] MEDS: ONDANSETRON 4 MG TABLET PO SCH ×4 (06:50→23:42)
[2018-07-06] MEDS: OLMESARTAN 20 MG TABLET PO SCH ×2 (08:50→21:25)
[2018-07-06] MEDS: sitaGLIPtin 100 MG TABLET PO SCH (08:50)
[2018-07-06] MEDS: ISOSORBIDE MONONITRATE 30 MG TABLET PO SCH (08:50)
[2018-07-06] MEDS: NEBIVOLOL 5 MG TABLET PO SCH (08:50)
[2018-07-06] MEDS: SIMVASTATIN 20 MG TABLET PO SCH (08:50)
[2018-07-06] MEDS: ASPIRIN EC 81 MG TABLET PO SCH (08:50)
[2018-07-06] MEDS: EZETIMIBE 10 MG TABLET PO SCH (08:50)
[2018-07-06] MEDS: PRASUGREL 10 MG TABLET PO SCH (08:50)
[2018-07-06] MEDS: INSULIN LISPRO 100 UNIT/ML SUBCUT SCH ×7 (08:51→21:26)
[2018-07-06] MEDS: FLUTICASONE 50 MCG NASAL SPRAY 16 GM BOTTLE BOTH NARES SCH (08:54)
[2018-07-06] MEDS: FERROUS SULFATE 325 MG TABLET PO SCH ×2 (09:28→21:25)
[2018-07-06 11:05] LABS: Protein/Creatinine Ratio,Urine 0.2 RATIO
[2018-07-06] MEDS: guaiFENesin/CODEINE 5 ML LIQUID PO PRN ×2 (11:38→16:38)
[2018-07-06] MEDS: traMADol 50 MG TABLET PO PRN (21:25)
[2018-07-06] MEDS: DOCUSATE SODIUM 100 MG CAPSULE PO PRN (21:25)
[2018-07-06] MEDS: INSULIN GLARGINE 100 UNIT/ML SUBCUT SCH (21:27)
[2018-07-07] MEDS: ALBUTEROL/IPRATROPIUM 3 ML NEB RESP TX SCH ×4 (05:22→19:10)
[2018-07-07] MEDS: ONDANSETRON 4 MG TABLET PO SCH ×4 (06:05→21:55)
[2018-07-07] MEDS: ENOXAPARIN 100 MG/ML SYRINGE SUBCUT SCH ×2 (06:05→17:30)
[2018-07-07 06:22] LABS: Basophils % 0.2 % (0.0-0.8); Eosinophils # 0.1 10*3/uL (0.0-0.87); Eosinophils % 2.2 % (0.00-10.9); Hematocrit 26.4 VOL% (35.7-47.0); Immature Granulocytes % 0.4 %; Immature Granulocytes Absolute 0.02 #; Lymphocytes # 0.8 10*3/uL (1.4-4.0); Lymphocytes % 17.5 % (21.3-54.2); Mean Corpuscular HGB Conc 30.3 GM/DL (32-36); Mean Corpuscular Hemoglobin 23 PG (27-34); Mean Corpuscular Volume 77.2 FL (87-102); Mean Platelet Volume 9.3 FL (9.6-12.0); Monocytes # 0.3 10*3/uL (0.11-0.8); Neutrophils # 3.3 10*3/uL (1.4-7.4); Neutrophils % 72.7 % (38.7-73.9); Platelet Count 142 T/CUMM (130-400); Red Blood Count 3.42 MC/CUMM (3.8-5.5); Red Cell Distribution Width 15.2 % (9.3-17.3); White Blood Count 4.6 T/CUMM (4-12)
[2018-07-07 06:40] LABS: Calcium 8.5 MG/DL (8.5-10.1); Osmolality,Calculated 280.7 MOS/KG (273-304); Potassium 5.3 MMOL/L (3.5-5.1)
[2018-07-07] MEDS: INSULIN LISPRO 100 UNIT/ML SUBCUT SCH ×7 (08:10→21:49)
[2018-07-07] MEDS: ISOSORBIDE MONONITRATE 30 MG TABLET PO SCH (09:22)
[2018-07-07] MEDS: OLMESARTAN 20 MG TABLET PO SCH ×2 (09:22→21:51)
[2018-07-07] MEDS: PRASUGREL 10 MG TABLET PO SCH (09:22)
[2018-07-07] MEDS: sitaGLIPtin 100 MG TABLET PO SCH (09:23)
[2018-07-07] MEDS: ASPIRIN EC 81 MG TABLET PO SCH (09:23)
[2018-07-07] MEDS: EZETIMIBE 10 MG TABLET PO SCH (09:23)
[2018-07-07] MEDS: SIMVASTATIN 20 MG TABLET PO SCH (09:23)
[2018-07-07] MEDS: FERROUS SULFATE 325 MG TABLET PO SCH ×2 (09:23→21:51)
[2018-07-07] MEDS: NEBIVOLOL 5 MG TABLET PO SCH (09:23)
[2018-07-07] MEDS: DOCUSATE SODIUM 100 MG CAPSULE PO PRN (09:30)
[2018-07-07] MEDS: FLUTICASONE 50 MCG NASAL SPRAY 16 GM BOTTLE BOTH NARES SCH (10:54)
[2018-07-07] MEDS ORDERED: ALBUTEROL/IPRATROPIUM 3 ML NEB RESP TX PRN (16:41)
[2018-07-07] MEDS: INSULIN GLARGINE 100 UNIT/ML SUBCUT SCH (21:50)
[2018-07-07] MEDS: guaiFENesin/CODEINE 5 ML LIQUID PO PRN (21:51)
[2018-07-08] MEDS: ALBUTEROL/IPRATROPIUM 3 ML NEB RESP TX SCH ×4 (00:10→20:06)
[2018-07-08 05:33] LABS: Basophils % 0.4 % (0.0-0.8); Eosinophils # 0.1 10*3/uL (0.0-0.87); Eosinophils % 1.8 % (0.00-10.9); Hematocrit 27.4 VOL% (35.7-47.0); Hemoglobin 8.3 GM/DL (12.0-16.0); Immature Granulocytes % 0.8 %; Immature Granulocytes Absolute 0.04 #; Lymphocytes # 1.4 10*3/uL (1.4-4.0); Lymphocytes % 26.8 % (21.3-54.2); Mean Corpuscular HGB Conc 30.3 GM/DL (32-36); Mean Corpuscular Hemoglobin 24 PG (27-34); Mean Corpuscular Volume 77.8 FL (87-102); Mean Platelet Volume 8.8 FL (9.6-12.0); Monocytes # 0.4 10*3/uL (0.11-0.8); Monocytes % 7.4 % (1.7-12.7); Neutrophils # 3.2 10*3/uL (1.4-7.4); Neutrophils % 62.8 % (38.7-73.9); Platelet Count 154 T/CUMM (130-400); Red Blood Count 3.52 MC/CUMM (3.8-5.5); Red Cell Distribution Width 15.3 % (9.3-17.3); White Blood Count 5.1 T/CUMM (4-12)
[2018-07-08 06:00] LABS: Calcium 8.7 MG/DL (8.5-10.1); Osmolality,Calculated 283.7 MOS/KG (273-304); Potassium 4.3 MMOL/L (3.5-5.1)
[2018-07-08] MEDS: ENOXAPARIN 100 MG/ML SYRINGE SUBCUT SCH ×2 (06:05→17:51)
[2018-07-08] MEDS: ONDANSETRON 4 MG TABLET PO SCH ×4 (06:05→22:30)
[2018-07-08] MEDS ORDERED: MAGNESIUM SULF RIDER 2 GM in PREMIX 1 EACH IV PRN (07:33)
[2018-07-08] MEDS ORDERED: POTASSIUM CHLORIDE RIDER 10 MEQ in PREMIX 1 EACH IV PRN (07:33)
[2018-07-08] MEDS: INSULIN LISPRO 100 UNIT/ML SUBCUT SCH ×4 (07:35→21:30)
[2018-07-08] MEDS ORDERED: LORazepam 2 MG/1 ML VIAL IV PRN (08:20)
[2018-07-08] MEDS ORDERED: ERGOCALCIFEROL 50,000 UNIT CAPSULE PO SCH (09:00)
[2018-07-08] MEDS: PRASUGREL 10 MG TABLET PO SCH (09:56)
[2018-07-08] MEDS: ASPIRIN EC 81 MG TABLET PO SCH (09:57)
[2018-07-08] MEDS: NEBIVOLOL 5 MG TABLET PO SCH (09:57)
[2018-07-08] MEDS: ISOSORBIDE MONONITRATE 30 MG TABLET PO SCH (09:57)
[2018-07-08] MEDS: OLMESARTAN 20 MG TABLET PO SCH ×2 (09:57→22:15)
[2018-07-08] MEDS: sitaGLIPtin 100 MG TABLET PO SCH (09:58)
[2018-07-08] MEDS: FERROUS SULFATE 325 MG TABLET PO SCH ×2 (09:58→22:16)
[2018-07-08] MEDS: SIMVASTATIN 20 MG TABLET PO SCH (09:58)
[2018-07-08] MEDS: EZETIMIBE 10 MG TABLET PO SCH (09:58)
[2018-07-08] MEDS: FLUTICASONE 50 MCG NASAL SPRAY 16 GM BOTTLE BOTH NARES SCH (09:59)
[2018-07-08] MEDS: SODIUM CHLORIDE 0.45% 1,000 ML IV SCH ×2 (12:18→17:22)
[2018-07-08] MEDS ORDERED: diphenhydrAMINE CAP 25 MG CAPSULE PO ONE (13:00)
[2018-07-08] MEDS ORDERED: DIAZEPAM 5 MG TABLET PO ONE (13:00)
[2018-07-08] MEDS ORDERED: LIDOCAINE 1% 20 ML VIAL ONE (14:33)
[2018-07-08] MEDS ORDERED: MIDAZOLAM 2 MG/2 ML VIAL ONE (14:43)
[2018-07-08] MEDS ORDERED: fentaNYL 100 MCG/2 ML VIAL ONE (14:43)
[2018-07-08] MEDS ORDERED: AMIODARONE INJ 150 MG in DEXTROSE 5% 100 ML IV ONE (14:45)
[2018-07-08] MEDS ORDERED: DIGOXIN 0.5 MG/2 ML AMP IV ONE (14:45)
[2018-07-08] MEDS ORDERED: AMIODARONE INJ 450 MG in DEXTROSE 5% 241 ML IV SCH ×2 (15:00→21:00)
[2018-07-08] MEDS ORDERED: hydrALAZINE 20 MG/1 ML VIAL ONE (15:23)
[2018-07-08] MEDS: INSULIN GLARGINE 100 UNIT/ML SUBCUT SCH (22:55)
[2018-07-09] MEDS: ALBUTEROL/IPRATROPIUM 3 ML NEB RESP TX SCH ×3 (02:26→13:15)
[2018-07-09 05:25] LABS: Basophils % 0.5 % (0.0-0.8); Eosinophils # 0.1 10*3/uL (0.0-0.87); Eosinophils % 1.7 % (0.00-10.9); Hematocrit 28.2 VOL% (35.7-47.0); Hemoglobin 8.5 GM/DL (12.0-16.0); Immature Granulocytes % 1.7 %; Immature Granulocytes Absolute 0.07 #; Lymphocytes # 1.2 10*3/uL (1.4-4.0); Lymphocytes % 29.3 % (21.3-54.2); Mean Corpuscular HGB Conc 30.1 GM/DL (32-36); Mean Corpuscular Hemoglobin 23 PG (27-34); Mean Corpuscular Volume 77.5 FL (87-102); Mean Platelet Volume 9.1 FL (9.6-12.0); Monocytes # 0.4 10*3/uL (0.11-0.8); Monocytes % 8.9 % (1.7-12.7); Neutrophils # 2.4 10*3/uL (1.4-7.4); Neutrophils % 57.9 % (38.7-73.9); Platelet Count 154 T/CUMM (130-400); Red Blood Count 3.64 MC/CUMM (3.8-5.5); Red Cell Distribution Width 15.8 % (9.3-17.3); White Blood Count 4.1 T/CUMM (4-12)
[2018-07-09 05:36] LABS: Calcium 8.8 MG/DL (8.5-10.1); Osmolality,Calculated 287.8 MOS/KG (273-304); Potassium 4.4 MMOL/L (3.5-5.1)
[2018-07-09] MEDS: ONDANSETRON 4 MG TABLET PO SCH ×2 (06:03→13:13)
[2018-07-09] MEDS: ENOXAPARIN 100 MG/ML SYRINGE SUBCUT SCH (06:35)
[2018-07-09] MEDS: SODIUM CHLORIDE 0.45% 1,000 ML IV SCH ×2 (08:18→08:45)
[2018-07-09] MEDS ORDERED: POLYETHYLENE GLYCOL POWDER 17 GM PACK PO PRN (08:50)
[2018-07-09] MEDS: PRASUGREL 10 MG TABLET PO SCH (08:57)
[2018-07-09] MEDS: EZETIMIBE 10 MG TABLET PO SCH (08:57)
[2018-07-09] MEDS: sitaGLIPtin 100 MG TABLET PO SCH (08:57)
[2018-07-09] MEDS: ISOSORBIDE MONONITRATE 30 MG TABLET PO SCH (08:57)
[2018-07-09] MEDS: ASPIRIN EC 81 MG TABLET PO SCH (08:57)
[2018-07-09] MEDS: DOCUSATE SODIUM 100 MG CAPSULE PO PRN (08:57)
[2018-07-09] MEDS: FERROUS SULFATE 325 MG TABLET PO SCH (08:57)
[2018-07-09] MEDS: NEBIVOLOL 5 MG TABLET PO SCH (08:57)
[2018-07-09] MEDS: SIMVASTATIN 20 MG TABLET PO SCH (08:57)
[2018-07-09] MEDS: OLMESARTAN 20 MG TABLET PO SCH (08:58)
[2018-07-09] MEDS ORDERED: ENOXAPARIN 30 MG/0.3 ML SYRINGE SUBCUT SCH (09:00)
[2018-07-09] MEDS: INSULIN LISPRO 100 UNIT/ML SUBCUT SCH ×2 (09:00→13:34)
[2018-07-09] MEDS ORDERED: NEBIVOLOL 5 MG TABLET PO SCH (09:01)
[2018-07-09] MEDS ORDERED: NEBIVOLOL 5 MG TABLET PO ONE (09:01)
[2018-07-09 11:44] VITALS: BP 159/73
[2018-07-09] MEDS: FLUTICASONE 50 MCG NASAL SPRAY 16 GM BOTTLE BOTH NARES SCH (13:34)
== END 2018-07-09 13:58 | disposition home or self-care (01) | DRG 281 ==
LOC: N.ED 13:13 → SUATTDRO 18:06 → N.EDINP 18:06 → N.TELEN 18:51
PROVIDERS: ADMIT Internal Medicine Cardiovascular Disease; ATTEND Internal Medicine
PROC: CLCCHCL (ICD-10-PCS; 2018-07-08 14:15)

== ENCOUNTER 2018-07-12 16:16 | Inpatient (IN) ==
[2018-07-12 17:18] LABS: Basophils % 0.2 % (0.0-0.8); Eosinophils # 0.1 10*3/uL (0.0-0.87); Eosinophils % 1.2 % (0.00-10.9); Hematocrit 31.8 VOL% (35.7-47.0); Hemoglobin 9.7 GM/DL (12.0-16.0); Immature Granulocytes % 0.8 %; Immature Granulocytes Absolute 0.07 #; Lymphocytes # 1.6 10*3/uL (1.4-4.0); Lymphocytes % 17.4 % (21.3-54.2); Mean Corpuscular HGB Conc 30.5 GM/DL (32-36); Mean Corpuscular Hemoglobin 24 PG (27-34); Mean Platelet Volume 9.2 FL (9.6-12.0); Monocytes # 0.9 10*3/uL (0.11-0.8); Monocytes % 9.4 % (1.7-12.7); Neutrophils # 6.4 10*3/uL (1.4-7.4); Platelet Count 197 T/CUMM (130-400); Red Blood Count 4.13 MC/CUMM (3.8-5.5); Red Cell Distribution Width 16.2 % (9.3-17.3)
[2018-07-12 17:29] LABS: PT Patient Result 10.7 SECS
[2018-07-12 17:34] LABS: Alanine Aminotransferase 24 U/L (13-56); Albumin 3.2 G/DL (3.4-5.0); Alkaline Phosphatase 115 U/L (45-117); Aspartate Amino Transferase 17 U/L (0-37); Blood Urea Nitrogen 21 MG/DL (7-18); Calcium 9.1 MG/DL (8.5-10.1); Glucose 203 MG/DL (74-106); Osmolality,Calculated 278.1 MOS/KG (273-304); Potassium 4.2 MMOL/L (3.5-5.1); Sodium 135 MMOL/L (136-145); Total Protein 7.8 G/DL (6.4-8.3)
[2018-07-12 17:37] LABS: Troponin I 0.072 NG/ML (0.00-0.045)
[2018-07-12] MEDS ORDERED: ENOXAPARIN 100 MG/ML SYRINGE SUBCUT STA (18:13)
[2018-07-12] MEDS ORDERED: ONDANSETRON 4 MG/2 ML VIAL IV PRN (18:14)
[2018-07-12] MEDS ORDERED: GLUCAGON 1 MG VIAL IM PRN (18:14)
[2018-07-12] MEDS ORDERED: MAGNESIUM SULF RIDER 4 GM in PREMIX 1 EACH IV PRN (18:14)
[2018-07-12] MEDS ORDERED: BISACODYL 5 MG TABLET PO PRN (18:14)
[2018-07-12] MEDS ORDERED: DEXTROSE 50% 25 GM/50 ML SYRINGE IV PRN (18:14)
[2018-07-12] MEDS ORDERED: MAGNESIUM SULF RIDER 2 GM in PREMIX 1 EACH IV PRN (18:14)
[2018-07-12] MEDS ORDERED: NITROGLYCERIN SL 0.4 MG TABLET SL PRN (18:17)
[2018-07-12] MEDS ORDERED: traMADol 50 MG TABLET PO PRN (19:42)
[2018-07-12] MEDS: NITROGLYCERIN 2% OINT 1 INCH/GM PACK TOP SCH (20:53)
[2018-07-12] MEDS: SODIUM CHLORIDE 0.45% 1,000 ML IV SCH (20:54)
[2018-07-12] MEDS: INSULIN GLARGINE 100 UNIT/ML SUBCUT SCH (20:57)
[2018-07-12] MEDS: INSULIN LISPRO 100 UNIT/ML SUBCUT SCH (20:57)
[2018-07-12] MEDS ORDERED: ZALEPLON 5 MG CAPSULE PO PRN (21:00)
[2018-07-13 00:50] LABS: Risk Ratio 3.19; VLDL CHOLESTEROL 31.6 MG/DL
[2018-07-13 00:55] LABS: Basophils % 0.3 % (0.0-0.8); Eosinophils # 0.1 10*3/uL (0.0-0.87); Eosinophils % 1.5 % (0.00-10.9); Hemoglobin 8.4 GM/DL (12.0-16.0); Immature Granulocytes % 0.6 %; Immature Granulocytes Absolute 0.04 #; Lymphocytes # 1.8 10*3/uL (1.4-4.0); Lymphocytes % 26.3 % (21.3-54.2); Mean Corpuscular HGB Conc 31.1 GM/DL (32-36); Mean Corpuscular Hemoglobin 24 PG (27-34); Mean Corpuscular Volume 77.6 FL (87-102); Mean Platelet Volume 9.3 FL (9.6-12.0); Monocytes # 0.7 10*3/uL (0.11-0.8); Monocytes % 10.6 % (1.7-12.7); Neutrophils # 4.1 10*3/uL (1.4-7.4); Neutrophils % 60.7 % (38.7-73.9); Platelet Count 167 T/CUMM (130-400); Red Blood Count 3.48 MC/CUMM (3.8-5.5); Red Cell Distribution Width 15.9 % (9.3-17.3); White Blood Count 6.8 T/CUMM (4-12)
[2018-07-13] MEDS: SODIUM CHLORIDE 0.45% 1,000 ML IV SCH ×3 (05:13→21:02)
[2018-07-13] MEDS ORDERED: ENOXAPARIN 100 MG/ML SYRINGE SUBCUT SCH ×2 (06:00→09:00)
[2018-07-13] MEDS: INSULIN LISPRO 100 UNIT/ML SUBCUT SCH ×7 (08:31→23:19)
[2018-07-13] MEDS: FLUTICASONE 50 MCG NASAL SPRAY 16 GM BOTTLE BOTH NARES SCH (08:38)
[2018-07-13] MEDS: NITROGLYCERIN 2% OINT 1 INCH/GM PACK TOP SCH ×2 (08:39→22:57)
[2018-07-13] MEDS: OLMESARTAN 5 MG TABLET PO SCH (08:41)
[2018-07-13] MEDS: ASPIRIN EC 81 MG TABLET PO SCH (08:41)
[2018-07-13] MEDS: SIMVASTATIN 20 MG TABLET PO SCH (08:41)
[2018-07-13] MEDS: NEBIVOLOL 5 MG TABLET PO SCH (08:41)
[2018-07-13] MEDS: FUROSEMIDE 40 MG TABLET PO SCH (08:41)
[2018-07-13] MEDS: EZETIMIBE 10 MG TABLET PO SCH (08:41)
[2018-07-13] MEDS: ISOSORBIDE MONONITRATE 30 MG TABLET PO SCH (08:42)
[2018-07-13] MEDS: PRASUGREL 10 MG TABLET PO SCH (08:42)
[2018-07-13] MEDS: PANTOPRAZOLE 40 MG TABLET PO SCH (08:42)
[2018-07-13] MEDS: POLYETHYLENE GLYCOL POWDER 17 GM PACK PO SCH (16:43)
[2018-07-13] MEDS: PSYLLIUM POWDER 3.7 GM/PACK PO SCH (16:43)
[2018-07-13] MEDS: IRON (CARBONYL) 45 MG TABLET PO SCH (17:55)
[2018-07-13] MEDS: INSULIN GLARGINE 100 UNIT/ML SUBCUT SCH (23:18)
[2018-07-13] MEDS: ENOXAPARIN 40 MG/0.4 ML SYRINGE SUBCUT SCH (23:18)
[2018-07-14] MEDS: SODIUM CHLORIDE 0.45% 1,000 ML IV SCH ×2 (04:36→16:40)
[2018-07-14 05:40] LABS: Basophils % 0.6 % (0.0-0.8); Eosinophils # 0.2 10*3/uL (0.0-0.87); Eosinophils % 3.1 % (0.00-10.9); Hematocrit 28.2 VOL% (35.7-47.0); Hemoglobin 8.5 GM/DL (12.0-16.0); Immature Granulocytes % 0.4 %; Immature Granulocytes Absolute 0.02 #; Lymphocytes # 1.8 10*3/uL (1.4-4.0); Lymphocytes % 37.2 % (21.3-54.2); Mean Corpuscular HGB Conc 30.1 GM/DL (32-36); Mean Corpuscular Hemoglobin 23 PG (27-34); Mean Platelet Volume 9.7 FL (9.6-12.0); Monocytes # 0.5 10*3/uL (0.11-0.8); Monocytes % 9.2 % (1.7-12.7); Neutrophils # 2.4 10*3/uL (1.4-7.4); Neutrophils % 49.5 % (38.7-73.9); Platelet Count 190 T/CUMM (130-400); Red Blood Count 3.66 MC/CUMM (3.8-5.5); Red Cell Distribution Width 15.7 % (9.3-17.3); White Blood Count 4.9 T/CUMM (4-12)
[2018-07-14 06:11] LABS: Albumin 2.5 G/DL (3.4-5.0); Bilirubin,Total 0.9 MG/DL (0.2-1.0); Calcium 8.4 MG/DL (8.5-10.1); Osmolality,Calculated 282.5 MOS/KG (273-304); Potassium 3.9 MMOL/L (3.5-5.1); Total Protein 6.9 G/DL (6.4-8.3)
[2018-07-14] MEDS: POTASSIUM CHLORIDE 20 MEQ TABLET PO PRN (06:28)
[2018-07-14] MEDS: INSULIN LISPRO 100 UNIT/ML SUBCUT SCH ×7 (08:26→21:23)
[2018-07-14] MEDS: ENOXAPARIN 40 MG/0.4 ML SYRINGE SUBCUT SCH (09:27)
[2018-07-14] MEDS: OLMESARTAN 5 MG TABLET PO SCH (09:27)
[2018-07-14] MEDS: SIMVASTATIN 20 MG TABLET PO SCH (09:28)
[2018-07-14] MEDS: NEBIVOLOL 5 MG TABLET PO SCH ×2 (09:28→20:31)
[2018-07-14] MEDS: ISOSORBIDE MONONITRATE 30 MG TABLET PO SCH (09:28)
[2018-07-14] MEDS: IRON (CARBONYL) 45 MG TABLET PO SCH (09:28)
[2018-07-14] MEDS: EZETIMIBE 10 MG TABLET PO SCH (09:28)
[2018-07-14] MEDS: PANTOPRAZOLE 40 MG TABLET PO SCH (09:28)
[2018-07-14] MEDS: PRASUGREL 10 MG TABLET PO SCH (09:28)
[2018-07-14] MEDS: ASPIRIN EC 81 MG TABLET PO SCH (09:28)
[2018-07-14] MEDS: NITROGLYCERIN 2% OINT 1 INCH/GM PACK TOP SCH ×2 (09:28→20:31)
[2018-07-14] MEDS: FUROSEMIDE 40 MG TABLET PO SCH (09:28)
[2018-07-14] MEDS: POLYETHYLENE GLYCOL POWDER 17 GM PACK PO SCH (09:29)
[2018-07-14] MEDS: PSYLLIUM POWDER 3.7 GM/PACK PO SCH (09:29)
[2018-07-14] MEDS: FLUTICASONE 50 MCG NASAL SPRAY 16 GM BOTTLE BOTH NARES SCH (09:31)
[2018-07-14] MEDS ORDERED: DEXTROSE 50% 25 GM/50 ML VIAL IV PRN (14:23)
[2018-07-14] MEDS ORDERED: GLUCAGON 1 MG VIAL IM PRN (14:23)
[2018-07-14] MEDS: glipiZIDE 10 MG TABLET PO SCH (18:16)
[2018-07-14] MEDS: INSULIN GLARGINE 100 UNIT/ML SUBCUT SCH (21:23)
[2018-07-15 05:20] LABS: Basophils % 0.7 % (0.0-0.8); Eosinophils # 0.1 10*3/uL (0.0-0.87); Eosinophils % 2.5 % (0.00-10.9); Hematocrit 27.9 VOL% (35.7-47.0); Hemoglobin 8.5 GM/DL (12.0-16.0); Immature Granulocytes % 0.5 %; Immature Granulocytes Absolute 0.02 #; Lymphocytes # 1.4 10*3/uL (1.4-4.0); Lymphocytes % 33.9 % (21.3-54.2); Mean Corpuscular HGB Conc 30.5 GM/DL (32-36); Mean Corpuscular Hemoglobin 24 PG (27-34); Mean Corpuscular Volume 77.1 FL (87-102); Mean Platelet Volume 8.9 FL (9.6-12.0); Monocytes # 0.3 10*3/uL (0.11-0.8); Monocytes % 7.6 % (1.7-12.7); Neutrophils # 2.2 10*3/uL (1.4-7.4); Neutrophils % 54.8 % (38.7-73.9); Platelet Count 175 T/CUMM (130-400); Red Blood Count 3.62 MC/CUMM (3.8-5.5); Red Cell Distribution Width 15.8 % (9.3-17.3); White Blood Count 4.1 T/CUMM (4-12)
[2018-07-15 05:41] LABS: Calcium 8.9 MG/DL (8.5-10.1); Osmolality,Calculated 282.3 MOS/KG (273-304); Potassium 3.9 MMOL/L (3.5-5.1)
[2018-07-15] MEDS: metFORMIN 500 MG TABLET PO SCH (07:45)
[2018-07-15] MEDS: glipiZIDE 10 MG TABLET PO SCH ×2 (07:45→10:08)
[2018-07-15] MEDS ORDERED: ERGOCALCIFEROL 50,000 UNIT CAPSULE PO SCH (09:00)
[2018-07-15] MEDS: PANTOPRAZOLE 40 MG TABLET PO SCH (10:07)
[2018-07-15] MEDS: EZETIMIBE 10 MG TABLET PO SCH (10:07)
[2018-07-15] MEDS: NEBIVOLOL 5 MG TABLET PO SCH ×2 (10:08→20:37)
[2018-07-15] MEDS: FUROSEMIDE 40 MG TABLET PO SCH (10:08)
[2018-07-15] MEDS: PRASUGREL 10 MG TABLET PO SCH (10:08)
[2018-07-15] MEDS: ASPIRIN EC 81 MG TABLET PO SCH (10:08)
[2018-07-15] MEDS: ISOSORBIDE MONONITRATE 30 MG TABLET PO SCH (10:08)
[2018-07-15] MEDS: INSULIN LISPRO 100 UNIT/ML SUBCUT SCH ×7 (10:09→20:36)
[2018-07-15] MEDS: PSYLLIUM POWDER 3.7 GM/PACK PO SCH (10:09)
[2018-07-15] MEDS: OLMESARTAN 5 MG TABLET PO SCH (10:09)
[2018-07-15] MEDS ORDERED: KETOROLAC 15 MG/1 ML VIAL IV ONE (10:09)
[2018-07-15] MEDS: POLYETHYLENE GLYCOL POWDER 17 GM PACK PO SCH (10:09)
[2018-07-15] MEDS: ENOXAPARIN 40 MG/0.4 ML SYRINGE SUBCUT SCH (10:10)
[2018-07-15] MEDS: NITROGLYCERIN 2% OINT 1 INCH/GM PACK TOP SCH ×2 (10:10→20:37)
[2018-07-15] MEDS: IRON (CARBONYL) 45 MG TABLET PO SCH (10:16)
[2018-07-15] MEDS: FLUTICASONE 50 MCG NASAL SPRAY 16 GM BOTTLE BOTH NARES SCH (10:18)
[2018-07-15 12:06] LABS: Troponin I 0.031 NG/ML (0.00-0.045)
[2018-07-15] MEDS: ALPRAZolam 0.25 MG TABLET PO SCH ×2 (14:58→20:37)
[2018-07-15] MEDS: INSULIN GLARGINE 100 UNIT/ML SUBCUT SCH (20:36)
[2018-07-16 04:45] LABS: Basophils % 0.6 % (0.0-0.8); Eosinophils # 0.1 10*3/uL (0.0-0.87); Eosinophils % 2.5 % (0.00-10.9); Hematocrit 26.8 VOL% (35.7-47.0); Hemoglobin 8.4 GM/DL (12.0-16.0); Immature Granulocytes % 0.4 %; Immature Granulocytes Absolute 0.02 #; Lymphocytes # 1.8 10*3/uL (1.4-4.0); Lymphocytes % 35.1 % (21.3-54.2); Mean Corpuscular HGB Conc 31.3 GM/DL (32-36); Mean Corpuscular Hemoglobin 24 PG (27-34); Mean Corpuscular Volume 75.3 FL (87-102); Mean Platelet Volume 9.4 FL (9.6-12.0); Monocytes # 0.4 10*3/uL (0.11-0.8); Monocytes % 7.9 % (1.7-12.7); Neutrophils # 2.8 10*3/uL (1.4-7.4); Neutrophils % 53.5 % (38.7-73.9); Platelet Count 186 T/CUMM (130-400); Red Blood Count 3.56 MC/CUMM (3.8-5.5); Red Cell Distribution Width 15.7 % (9.3-17.3); White Blood Count 5.2 T/CUMM (4-12)
[2018-07-16 04:56] LABS: Calcium 8.8 MG/DL (8.5-10.1); Osmolality,Calculated 280.5 MOS/KG (273-304); Potassium 3.8 MMOL/L (3.5-5.1)
[2018-07-16] MEDS: INSULIN LISPRO 100 UNIT/ML SUBCUT SCH ×6 (09:18→21:09)
[2018-07-16] MEDS: ENOXAPARIN 40 MG/0.4 ML SYRINGE SUBCUT SCH (09:20)
[2018-07-16] MEDS: EZETIMIBE 10 MG TABLET PO SCH (09:22)
[2018-07-16] MEDS: PRASUGREL 10 MG TABLET PO SCH (09:22)
[2018-07-16] MEDS: ASPIRIN EC 81 MG TABLET PO SCH (09:22)
[2018-07-16] MEDS: OLMESARTAN 5 MG TABLET PO SCH (09:23)
[2018-07-16] MEDS: NEBIVOLOL 5 MG TABLET PO SCH ×2 (09:24→21:08)
[2018-07-16] MEDS: IRON (CARBONYL) 45 MG TABLET PO SCH (09:24)
[2018-07-16] MEDS: ALPRAZolam 0.25 MG TABLET PO SCH ×3 (09:24→21:09)
[2018-07-16] MEDS: metFORMIN 500 MG TABLET PO SCH ×2 (09:24→16:31)
[2018-07-16] MEDS: ISOSORBIDE MONONITRATE 30 MG TABLET PO SCH (09:25)
[2018-07-16] MEDS: FUROSEMIDE 40 MG TABLET PO SCH (09:26)
[2018-07-16] MEDS: glipiZIDE 10 MG TABLET PO SCH ×2 (09:26→16:31)
[2018-07-16] MEDS: PANTOPRAZOLE 40 MG TABLET PO SCH (09:26)
[2018-07-16] MEDS: PSYLLIUM POWDER 3.7 GM/PACK PO SCH (09:27)
[2018-07-16] MEDS: POLYETHYLENE GLYCOL POWDER 17 GM PACK PO SCH (09:27)
[2018-07-16] MEDS: NITROGLYCERIN 2% OINT 1 INCH/GM PACK TOP SCH (09:28)
[2018-07-16] MEDS: FLUTICASONE 50 MCG NASAL SPRAY 16 GM BOTTLE BOTH NARES SCH (09:28)
[2018-07-16] MEDS ORDERED: KETOROLAC 15 MG/1 ML VIAL IV PRN (12:37)
[2018-07-16] MEDS ORDERED: INSULIN LISPRO 100 UNIT/ML SUBCUT SCH (13:46)
[2018-07-16] MEDS: INSULIN GLARGINE 100 UNIT/ML SUBCUT SCH (20:18)
[2018-07-17 05:18] LABS: Basophils % 0.4 % (0.0-0.8); Eosinophils # 0.2 10*3/uL (0.0-0.87); Hematocrit 29.6 VOL% (35.7-47.0); Hemoglobin 9.2 GM/DL (12.0-16.0); Immature Granulocytes % 0.5 %; Immature Granulocytes Absolute 0.04 #; Lymphocytes # 1.6 10*3/uL (1.4-4.0); Lymphocytes % 18.9 % (21.3-54.2); Mean Corpuscular HGB Conc 31.1 GM/DL (32-36); Mean Corpuscular Hemoglobin 24 PG (27-34); Mean Corpuscular Volume 77.5 FL (87-102); Mean Platelet Volume 9.2 FL (9.6-12.0); Monocytes # 0.5 10*3/uL (0.11-0.8); Monocytes % 5.8 % (1.7-12.7); Neutrophils % 72.4 % (38.7-73.9); Platelet Count 188 T/CUMM (130-400); Red Blood Count 3.82 MC/CUMM (3.8-5.5); Red Cell Distribution Width 15.9 % (9.3-17.3); White Blood Count 8.3 T/CUMM (4-12)
[2018-07-17 05:46] LABS: Calcium 8.9 MG/DL (8.5-10.1); Osmolality,Calculated 281.4 MOS/KG (273-304)
[2018-07-17] MEDS: PSYLLIUM POWDER 3.7 GM/PACK PO SCH (09:05)
[2018-07-17] MEDS: POLYETHYLENE GLYCOL POWDER 17 GM PACK PO SCH (09:05)
[2018-07-17] MEDS: glipiZIDE 10 MG TABLET PO SCH ×2 (09:07→16:19)
[2018-07-17] MEDS: FUROSEMIDE 40 MG TABLET PO SCH (09:07)
[2018-07-17] MEDS: ISOSORBIDE MONONITRATE 30 MG TABLET PO SCH (09:07)
[2018-07-17] MEDS: NEBIVOLOL 5 MG TABLET PO SCH ×2 (09:08→21:28)
[2018-07-17] MEDS: PANTOPRAZOLE 40 MG TABLET PO SCH (09:08)
[2018-07-17] MEDS: EZETIMIBE 10 MG TABLET PO SCH (09:09)
[2018-07-17] MEDS: ALPRAZolam 0.25 MG TABLET PO SCH ×3 (09:09→21:28)
[2018-07-17] MEDS: metFORMIN 500 MG TABLET PO SCH ×2 (09:10→16:18)
[2018-07-17] MEDS: IRON (CARBONYL) 45 MG TABLET PO SCH (09:10)
[2018-07-17] MEDS: ASPIRIN EC 81 MG TABLET PO SCH (09:10)
[2018-07-17] MEDS: PRASUGREL 10 MG TABLET PO SCH (09:11)
[2018-07-17] MEDS: OLMESARTAN 5 MG TABLET PO SCH (09:11)
[2018-07-17] MEDS: FLUTICASONE 50 MCG NASAL SPRAY 16 GM BOTTLE BOTH NARES SCH (09:12)
[2018-07-17] MEDS: INSULIN LISPRO 100 UNIT/ML SUBCUT SCH ×7 (09:12→22:07)
[2018-07-17] MEDS: ENOXAPARIN 40 MG/0.4 ML SYRINGE SUBCUT SCH (09:13)
[2018-07-17] MEDS: INSULIN GLARGINE 100 UNIT/ML SUBCUT SCH (09:14)
[2018-07-18 05:59] LABS: Basophils % 0.2 % (0.0-0.8); Eosinophils # 0.1 10*3/uL (0.0-0.87); Eosinophils % 1.6 % (0.00-10.9); Hematocrit 29.1 VOL% (35.7-47.0); Hemoglobin 8.9 GM/DL (12.0-16.0); Immature Granulocytes % 0.4 %; Immature Granulocytes Absolute 0.03 #; Lymphocytes # 1.4 10*3/uL (1.4-4.0); Lymphocytes % 17.4 % (21.3-54.2); Mean Corpuscular HGB Conc 30.6 GM/DL (32-36); Mean Corpuscular Hemoglobin 24 PG (27-34); Mean Corpuscular Volume 77.4 FL (87-102); Mean Platelet Volume 8.5 FL (9.6-12.0); Monocytes # 0.6 10*3/uL (0.11-0.8); Neutrophils % 73.4 % (38.7-73.9); Platelet Count 157 T/CUMM (130-400); Red Blood Count 3.76 MC/CUMM (3.8-5.5); White Blood Count 8.2 T/CUMM (4-12)
[2018-07-18 06:08] LABS: PT Patient Result 10.4 SECS
[2018-07-18 06:13] LABS: Calcium 9.2 MG/DL (8.5-10.1); Osmolality,Calculated 277.8 MOS/KG (273-304); Potassium 3.9 MMOL/L (3.5-5.1)
[2018-07-18] MEDS: glipiZIDE 10 MG TABLET PO SCH ×2 (09:44→17:31)
[2018-07-18] MEDS: INSULIN LISPRO 100 UNIT/ML SUBCUT SCH ×7 (09:44→21:31)
[2018-07-18] MEDS: ASPIRIN EC 81 MG TABLET PO SCH (09:46)
[2018-07-18] MEDS: PRASUGREL 10 MG TABLET PO SCH (09:46)
[2018-07-18] MEDS: NEBIVOLOL 5 MG TABLET PO SCH ×2 (09:46→20:22)
[2018-07-18] MEDS: PSYLLIUM POWDER 3.7 GM/PACK PO SCH (09:47)
[2018-07-18] MEDS: FLUTICASONE 50 MCG NASAL SPRAY 16 GM BOTTLE BOTH NARES SCH (09:47)
[2018-07-18] MEDS: ISOSORBIDE MONONITRATE 30 MG TABLET PO SCH (09:47)
[2018-07-18] MEDS: INSULIN GLARGINE 100 UNIT/ML SUBCUT SCH (09:49)
[2018-07-18] MEDS: ENOXAPARIN 40 MG/0.4 ML SYRINGE SUBCUT SCH (09:49)
[2018-07-18] MEDS: FUROSEMIDE 40 MG TABLET PO SCH (09:49)
[2018-07-18] MEDS: PANTOPRAZOLE 40 MG TABLET PO SCH ×2 (09:50→20:23)
[2018-07-18] MEDS: POLYETHYLENE GLYCOL POWDER 17 GM PACK PO SCH (09:50)
[2018-07-18] MEDS: ALPRAZolam 0.25 MG TABLET PO SCH ×3 (09:50→20:22)
[2018-07-18] MEDS: EZETIMIBE 10 MG TABLET PO SCH (09:50)
[2018-07-18] MEDS ORDERED: INSULIN GLARGINE 100 UNIT/ML SUBCUT SCH (10:41)
[2018-07-18] MEDS ORDERED: ISOSORBIDE MONONITRATE 30 MG TABLET PO SCH (16:04)
[2018-07-19 05:03] LABS: Basophils % 0.4 % (0.0-0.8); Eosinophils # 0.1 10*3/uL (0.0-0.87); Hematocrit 28.6 VOL% (35.7-47.0); Hemoglobin 8.9 GM/DL (12.0-16.0); Immature Granulocytes % 0.6 %; Immature Granulocytes Absolute 0.04 #; Lymphocytes % 27.3 % (21.3-54.2); Mean Corpuscular HGB Conc 31.1 GM/DL (32-36); Mean Corpuscular Hemoglobin 24 PG (27-34); Mean Corpuscular Volume 75.9 FL (87-102); Mean Platelet Volume 9.6 FL (9.6-12.0); Monocytes # 0.6 10*3/uL (0.11-0.8); Monocytes % 8.3 % (1.7-12.7); Neutrophils # 4.4 10*3/uL (1.4-7.4); Neutrophils % 61.4 % (38.7-73.9); Platelet Count 200 T/CUMM (130-400); Red Blood Count 3.77 MC/CUMM (3.8-5.5); White Blood Count 7.1 T/CUMM (4-12)
[2018-07-19 05:22] LABS: Osmolality,Calculated 279.7 MOS/KG (273-304); Potassium 3.7 MMOL/L (3.5-5.1)
[2018-07-19 09:19] LABS: Apearance,Urine CLEAR (Clear); Bacteria,Urine Occasional /HPF (Few); Bilirubin,Urine Negative (Negative); Blood, Urine Small mg/dL (Negative); Glucose,Urine (UA) Negative (Negative); Hyaline Casts,Urine 1 /LPF (0-3); Ketones,Urine Negative (Negative); Mucus,Urine Occasional /LPF (Occasional); Nitrite,Urine Negative (Negative); Protein,Urine Negative; RBC,Urine <1 /HPF (0-4); Squamous Epithelial Cell,Urine Occasional /HPF (0-10); Urine Color Yellow (Yellow); Urine Specific Gravity 1.008 (1.001-1.035); Urine Urobilinogen < 2.0 EU/DL (0.2-1.0); WBC,Urine 6 /HPF (0-6)
[2018-07-19] MEDS: INSULIN LISPRO 100 UNIT/ML SUBCUT SCH ×7 (10:16→22:22)
[2018-07-19] MEDS: POTASSIUM CHLORIDE 20 MEQ TABLET PO PRN (10:25)
[2018-07-19] MEDS: ENOXAPARIN 40 MG/0.4 ML SYRINGE SUBCUT SCH (10:25)
[2018-07-19] MEDS: ALPRAZolam 0.25 MG TABLET PO SCH ×3 (10:25→22:21)
[2018-07-19] MEDS: PANTOPRAZOLE 40 MG TABLET PO SCH ×2 (10:25→22:22)
[2018-07-19] MEDS: PRASUGREL 10 MG TABLET PO SCH (10:26)
[2018-07-19] MEDS: ISOSORBIDE MONONITRATE 60 MG TABLET PO SCH (10:26)
[2018-07-19] MEDS: ASPIRIN EC 81 MG TABLET PO SCH (10:26)
[2018-07-19] MEDS: glipiZIDE 10 MG TABLET PO SCH ×2 (10:26→16:28)
[2018-07-19] MEDS: NEBIVOLOL 5 MG TABLET PO SCH ×2 (10:26→22:21)
[2018-07-19] MEDS: PSYLLIUM POWDER 3.7 GM/PACK PO SCH (10:26)
[2018-07-19] MEDS: POLYETHYLENE GLYCOL POWDER 17 GM PACK PO SCH (10:26)
[2018-07-19] MEDS: EZETIMIBE 10 MG TABLET PO SCH (10:26)
[2018-07-19] MEDS: FLUTICASONE 50 MCG NASAL SPRAY 16 GM BOTTLE BOTH NARES SCH (10:26)
[2018-07-19] MEDS ORDERED: INSULIN LISPRO 100 UNIT/ML SUBCUT SCH (19:14)
[2018-07-20 05:00] LABS: Basophils % 0.5 % (0.0-0.8); Eosinophils # 0.1 10*3/uL (0.0-0.87); Eosinophils % 2.9 % (0.00-10.9); Hematocrit 26.7 VOL% (35.7-47.0); Hemoglobin 8.2 GM/DL (12.0-16.0); Immature Granulocytes % 0.2 %; Immature Granulocytes Absolute 0.01 #; Lymphocytes # 1.6 10*3/uL (1.4-4.0); Lymphocytes % 38.3 % (21.3-54.2); Mean Corpuscular HGB Conc 30.7 GM/DL (32-36); Mean Corpuscular Hemoglobin 24 PG (27-34); Mean Corpuscular Volume 76.7 FL (87-102); Mean Platelet Volume 9.1 FL (9.6-12.0); Monocytes # 0.4 10*3/uL (0.11-0.8); Monocytes % 10.5 % (1.7-12.7); Neutrophils % 47.6 % (38.7-73.9); Platelet Count 170 T/CUMM (130-400); Red Blood Count 3.48 MC/CUMM (3.8-5.5); Red Cell Distribution Width 15.8 % (9.3-17.3); White Blood Count 4.2 T/CUMM (4-12)
[2018-07-20 05:19] LABS: Calcium 8.7 MG/DL (8.5-10.1); Osmolality,Calculated 287.8 MOS/KG (273-304); Potassium 4.4 MMOL/L (3.5-5.1)
[2018-07-20] MEDS: glipiZIDE 10 MG TABLET PO SCH ×2 (07:42→16:50)
[2018-07-20] MEDS: INSULIN LISPRO 100 UNIT/ML SUBCUT SCH ×5 (07:58→17:14)
[2018-07-20] MEDS ORDERED: INSULIN GLARGINE 100 UNIT/ML SUBCUT SCH ×2 (08:00→10:20)
[2018-07-20] MEDS: POLYETHYLENE GLYCOL POWDER 17 GM PACK PO SCH (08:56)
[2018-07-20] MEDS: PRASUGREL 10 MG TABLET PO SCH (08:56)
[2018-07-20] MEDS: EZETIMIBE 10 MG TABLET PO SCH (08:56)
[2018-07-20] MEDS: NEBIVOLOL 5 MG TABLET PO SCH ×2 (08:56→22:19)
[2018-07-20] MEDS: ALPRAZolam 0.25 MG TABLET PO SCH ×3 (08:56→22:20)
[2018-07-20] MEDS: ISOSORBIDE MONONITRATE 60 MG TABLET PO SCH (08:56)
[2018-07-20] MEDS: PSYLLIUM POWDER 3.7 GM/PACK PO SCH (08:56)
[2018-07-20] MEDS: PANTOPRAZOLE 40 MG TABLET PO SCH ×2 (08:56→22:19)
[2018-07-20] MEDS: ASPIRIN EC 81 MG TABLET PO SCH (08:56)
[2018-07-20] MEDS: FLUTICASONE 50 MCG NASAL SPRAY 16 GM BOTTLE BOTH NARES SCH (08:57)
[2018-07-20] MEDS: ENOXAPARIN 40 MG/0.4 ML SYRINGE SUBCUT SCH (09:00)
[2018-07-20] MEDS ORDERED: LEVOFLOXACIN INJ 500 MG in PREMIX 1 EACH IV ONE (09:32)
[2018-07-20] MEDS ORDERED: IMIPRAMINE 25 MG TABLET PO SCH (21:00)
[2018-07-20] MEDS ORDERED: sitaGLIPtin 25 MG TABLET PO SCH (21:00)
[2018-07-21 04:17] LABS: Basophils % 0.5 % (0.0-0.8); Eosinophils # 0.2 10*3/uL (0.0-0.87); Hemoglobin 9.4 GM/DL (12.0-16.0); Immature Granulocytes % 0.3 %; Immature Granulocytes Absolute 0.02 #; Lymphocytes # 1.7 10*3/uL (1.4-4.0); Lymphocytes % 28.4 % (21.3-54.2); Mean Corpuscular HGB Conc 31.3 GM/DL (32-36); Mean Corpuscular Hemoglobin 24 PG (27-34); Mean Corpuscular Volume 75.6 FL (87-102); Mean Platelet Volume 9.2 FL (9.6-12.0); Monocytes # 0.5 10*3/uL (0.11-0.8); Monocytes % 7.6 % (1.7-12.7); Neutrophils # 3.6 10*3/uL (1.4-7.4); Neutrophils % 60.2 % (38.7-73.9); Platelet Count 211 T/CUMM (130-400); Red Blood Count 3.97 MC/CUMM (3.8-5.5); Red Cell Distribution Width 15.7 % (9.3-17.3)
[2018-07-21 04:31] LABS: Calcium 9.2 MG/DL (8.5-10.1); Osmolality,Calculated 284.5 MOS/KG (273-304); Potassium 4.5 MMOL/L (3.5-5.1)
[2018-07-21] MEDS: INSULIN LISPRO 100 UNIT/ML SUBCUT SCH ×5 (07:32→11:54)
[2018-07-21] MEDS ORDERED: LEVOFLOXACIN 500 MG TABLET PO SCH (09:00)
[2018-07-21] MEDS: PSYLLIUM POWDER 3.7 GM/PACK PO SCH (09:09)
[2018-07-21] MEDS: POLYETHYLENE GLYCOL POWDER 17 GM PACK PO SCH (09:09)
[2018-07-21] MEDS: ENOXAPARIN 40 MG/0.4 ML SYRINGE SUBCUT SCH (09:14)
[2018-07-21] MEDS: ALPRAZolam 0.25 MG TABLET PO SCH ×2 (09:14→14:40)
[2018-07-21] MEDS: glipiZIDE 10 MG TABLET PO SCH (09:14)
[2018-07-21] MEDS: PANTOPRAZOLE 40 MG TABLET PO SCH (09:15)
[2018-07-21] MEDS: ISOSORBIDE MONONITRATE 60 MG TABLET PO SCH (09:15)
[2018-07-21] MEDS: ASPIRIN EC 81 MG TABLET PO SCH (09:15)
[2018-07-21] MEDS: EZETIMIBE 10 MG TABLET PO SCH (09:15)
[2018-07-21] MEDS: PRASUGREL 10 MG TABLET PO SCH (09:15)
[2018-07-21] MEDS: NEBIVOLOL 5 MG TABLET PO SCH (09:15)
[2018-07-21] MEDS: FLUTICASONE 50 MCG NASAL SPRAY 16 GM BOTTLE BOTH NARES SCH (09:16)
[2018-07-21] MEDS ORDERED: sitaGLIPtin 25 MG TABLET PO SCH (11:10)
[2018-07-21 12:06] VITALS: BP 148/61
== END 2018-07-21 16:32 | disposition home or self-care (01) | DRG 281 ==
LOC: N.ED 16:16 → N.EDINP 16:16 → N.TELES 19:11
PROVIDERS: ADMIT Internal Medicine Cardiovascular Disease; ATTEND Internal Medicine Cardiovascular Disease

== ENCOUNTER 2019-02-21 17:21 | Inpatient (IN) ==
[2019-02-21] MEDS ORDERED: NITROGLYCERIN 2% OINT 1 INCH/GM PACK TOP STA (18:16)
[2019-02-21 18:21] LABS: Basophils % 0.2 % (0.0-0.8); Eosinophils # 0.1 10*3/uL (0.0-0.87); Eosinophils % 0.6 % (0.00-10.9); Hematocrit 29.8 VOL% (35.7-47.0); Hemoglobin 9.4 GM/DL (12.0-16.0); Immature Granulocytes % 0.5 %; Immature Granulocytes Absolute 0.04 #; Lymphocytes # 0.8 10*3/uL (1.4-4.0); Lymphocytes % 9.2 % (21.3-54.2); Mean Corpuscular HGB Conc 31.5 GM/DL (32-36); Mean Corpuscular Volume 71.8 FL (87-102); Mean Platelet Volume 9.7 FL (9.6-12.0); Monocytes % 5.3 % (1.7-12.7); Neutrophils % 84.2 % (38.7-73.9); Platelet Count 151 T/CUMM (130-400); Red Blood Count 4.15 MC/CUMM (3.8-5.5); Red Cell Distribution Width 15.4 % (9.3-17.3); White Blood Count 8.5 T/CUMM (4-12)
[2019-02-21] MEDS ORDERED: METOCLOPRAMIDE 10 MG/2 ML VIAL IV STA (18:22)
[2019-02-21 18:33] LABS: Troponin I < 0.015 NG/ML (0.00-0.045)
[2019-02-21 18:33] LABS: Albumin 3.1 G/DL (3.4-5.0); Bilirubin,Total 0.5 MG/DL (0.2-1.0); Calcium 8.8 MG/DL (8.5-10.1); Osmolality,Calculated 288.1 MOS/KG (273-304); Total Protein 6.8 G/DL (6.4-8.3)
[2019-02-21] MEDS ORDERED: DOCUSATE SODIUM 100 MG CAPSULE PO PRN (19:38)
[2019-02-21] MEDS ORDERED: GLUCAGON 1 MG VIAL IM PRN (19:38)
[2019-02-21] MEDS ORDERED: DEXTROSE 50% 25 GM/50 ML VIAL IV PRN (19:38)
[2019-02-21] MEDS ORDERED: FUROSEMIDE 40 MG TABLET PO PRN (19:45)
[2019-02-21] MEDS ORDERED: ENOXAPARIN 100 MG/ML SYRINGE SUBCUT ONE (20:00)
[2019-02-21] MEDS ORDERED: ENOXAPARIN 40 MG/0.4 ML SYRINGE SUBCUT SCH (21:00)
[2019-02-21] MEDS: EZETIMIBE 10 MG TABLET PO SCH (22:34)
[2019-02-21] MEDS: ISOSORBIDE DINITRATE 20 MG TABLET PO SCH (22:34)
[2019-02-21] MEDS: INSULIN LISPRO 100 UNIT/ML SUBCUT SCH (22:40)
[2019-02-22 05:52] LABS: Basophils % 0.3 % (0.0-0.8); Eosinophils # 0.1 10*3/uL (0.0-0.87); Eosinophils % 1.4 % (0.00-10.9); Hematocrit 29.3 VOL% (35.7-47.0); Hemoglobin 9.1 GM/DL (12.0-16.0); Immature Granulocytes % 0.5 %; Immature Granulocytes Absolute 0.03 #; Lymphocytes # 1.5 10*3/uL (1.4-4.0); Lymphocytes % 23.8 % (21.3-54.2); Mean Corpuscular HGB Conc 31.1 GM/DL (32-36); Mean Corpuscular Volume 73.1 FL (87-102); Mean Platelet Volume 9.3 FL (9.6-12.0); Monocytes % 9.4 % (1.7-12.7); Neutrophils % 64.6 % (38.7-73.9); Platelet Count 155 T/CUMM (130-400); Red Blood Count 4.01 MC/CUMM (3.8-5.5); Red Cell Distribution Width 15.6 % (9.3-17.3); White Blood Count 6.3 T/CUMM (4-12)
[2019-02-22 06:23] LABS: Calcium 8.9 MG/DL (8.5-10.1); Osmolality,Calculated 287.5 MOS/KG (273-304); Risk Ratio 4.74; VLDL CHOLESTEROL 28.6 MG/DL
[2019-02-22] MEDS: INSULIN LISPRO 100 UNIT/ML SUBCUT SCH ×4 (08:41→21:12)
[2019-02-22] MEDS: PANTOPRAZOLE 40 MG TABLET PO SCH (08:42)
[2019-02-22] MEDS: PRASUGREL 10 MG TABLET PO SCH (08:42)
[2019-02-22] MEDS: NEBIVOLOL 5 MG TABLET PO SCH (08:43)
[2019-02-22] MEDS: ASPIRIN EC 81 MG TABLET PO SCH (08:44)
[2019-02-22] MEDS: ISOSORBIDE DINITRATE 20 MG TABLET PO SCH ×2 (08:44→21:11)
[2019-02-22] MEDS: POLYETHYLENE GLYCOL POWDER 17 GM PACK PO SCH (08:44)
[2019-02-22] MEDS: ENOXAPARIN 40 MG/0.4 ML SYRINGE SUBCUT SCH (09:14)
[2019-02-22] MEDS: FLUTICASONE 50 MCG NASAL SPRAY 16 GM BOTTLE BOTH NARES SCH (09:15)
[2019-02-22] MEDS: NITROGLYCERIN SL 0.4 MG TABLET SL PRN ×2 (09:21→16:14)
[2019-02-22] MEDS: EZETIMIBE 10 MG TABLET PO SCH (21:11)
[2019-02-23] MEDS: NEBIVOLOL 5 MG TABLET PO SCH (09:14)
[2019-02-23] MEDS: PANTOPRAZOLE 40 MG TABLET PO SCH (09:14)
[2019-02-23] MEDS: ASPIRIN EC 81 MG TABLET PO SCH (09:14)
[2019-02-23] MEDS: ISOSORBIDE DINITRATE 20 MG TABLET PO SCH ×2 (09:14→21:29)
[2019-02-23] MEDS: ENOXAPARIN 40 MG/0.4 ML SYRINGE SUBCUT SCH (09:15)
[2019-02-23] MEDS: PRASUGREL 10 MG TABLET PO SCH (09:15)
[2019-02-23] MEDS: INSULIN LISPRO 100 UNIT/ML SUBCUT SCH ×4 (09:15→21:31)
[2019-02-23] MEDS: FLUTICASONE 50 MCG NASAL SPRAY 16 GM BOTTLE BOTH NARES SCH (09:25)
[2019-02-23 10:34] LABS: Troponin I < 0.015 NG/ML (0.00-0.045)
[2019-02-23 12:52] LABS: Basophils % 0.5 % (0.0-0.8); Eosinophils # 0.1 10*3/uL (0.0-0.87); Eosinophils % 2.8 % (0.00-10.9); Hematocrit 29.1 VOL% (35.7-47.0); Hemoglobin 8.9 GM/DL (12.0-16.0); Immature Granulocytes % 0.5 %; Immature Granulocytes Absolute 0.02 #; Lymphocytes # 1.1 10*3/uL (1.4-4.0); Lymphocytes % 24.5 % (21.3-54.2); Mean Corpuscular HGB Conc 30.6 GM/DL (32-36); Mean Corpuscular Volume 73.7 FL (87-102); Mean Platelet Volume 9.2 FL (9.6-12.0); Monocytes % 7.6 % (1.7-12.7); Neutrophils % 64.1 % (38.7-73.9); Platelet Count 138 T/CUMM (130-400); Red Blood Count 3.95 MC/CUMM (3.8-5.5); Red Cell Distribution Width 15.6 % (9.3-17.3); White Blood Count 4.3 T/CUMM (4-12)
[2019-02-23 12:59] LABS: INR 0.9; PT Patient Result 10.2 SECS (9.6-12.2)
[2019-02-23 13:07] LABS: Calcium 8.6 MG/DL (8.5-10.1); Osmolality,Calculated 283.5 MOS/KG (273-304)
[2019-02-23] MEDS ORDERED: DIAZEPAM 5 MG TABLET PO ONE (13:54)
[2019-02-23] MEDS ORDERED: POTASSIUM CHLORIDE RIDER 10 MEQ in PREMIX 1 EACH IV PRN ×2 (13:54→16:57)
[2019-02-23] MEDS ORDERED: MAGNESIUM SULF RIDER 2 GM in PREMIX 1 EACH IV PRN ×2 (13:54→16:57)
[2019-02-23] MEDS ORDERED: diphenhydrAMINE CAP 25 MG CAPSULE PO ONE (13:54)
[2019-02-23] MEDS: SODIUM CHLORIDE 0.45% 1,000 ML IV SCH (14:38)
[2019-02-23] MEDS: POLYETHYLENE GLYCOL POWDER 17 GM PACK PO SCH (14:43)
[2019-02-23] MEDS ORDERED: MAGNESIUM HYDROXIDE SUSP 30 ML UDCUP PO PRN (16:56)
[2019-02-23] MEDS ORDERED: diphenhydrAMINE CAP 25 MG CAPSULE PO PRN (16:56)
[2019-02-23] MEDS: RANOLAZINE 500 MG TABLET PO SCH (21:28)
[2019-02-23] MEDS: EZETIMIBE 10 MG TABLET PO SCH (21:29)
[2019-02-24] MEDS: SODIUM CHLORIDE 0.45% 1,000 ML IV SCH ×2 (04:00→16:49)
[2019-02-24 04:37] LABS: Basophils % 0.3 % (0.0-0.8); Eosinophils # 0.1 10*3/uL (0.0-0.87); Eosinophils % 3.6 % (0.00-10.9); Hematocrit 27.2 VOL% (35.7-47.0); Hemoglobin 8.6 GM/DL (12.0-16.0); Immature Granulocytes % 0.3 %; Immature Granulocytes Absolute 0.01 #; Lymphocytes # 1.2 10*3/uL (1.4-4.0); Lymphocytes % 33.4 % (21.3-54.2); Mean Corpuscular HGB Conc 31.6 GM/DL (32-36); Mean Corpuscular Volume 72.5 FL (87-102); Mean Platelet Volume 9.3 FL (9.6-12.0); Monocytes % 8.5 % (1.7-12.7); Neutrophils % 53.9 % (38.7-73.9); Platelet Count 129 T/CUMM (130-400); Red Blood Count 3.75 MC/CUMM (3.8-5.5); Red Cell Distribution Width 15.4 % (9.3-17.3); White Blood Count 3.7 T/CUMM (4-12)
[2019-02-24 04:56] LABS: Calcium 8.2 MG/DL (8.5-10.1); Osmolality,Calculated 281.5 MOS/KG (273-304)
[2019-02-24] MEDS: ENOXAPARIN 40 MG/0.4 ML SYRINGE SUBCUT SCH ×2 (07:34→10:52)
[2019-02-24] MEDS: ASPIRIN EC 81 MG TABLET PO SCH ×2 (07:34→10:52)
[2019-02-24] MEDS: NEBIVOLOL 5 MG TABLET PO SCH ×2 (07:34→10:53)
[2019-02-24] MEDS: PANTOPRAZOLE 40 MG TABLET PO SCH ×2 (07:34→10:52)
[2019-02-24] MEDS ORDERED: DIAZEPAM 5 MG TABLET PO ONE (08:00)
[2019-02-24] MEDS ORDERED: diphenhydrAMINE CAP 25 MG CAPSULE PO ONE (08:00)
[2019-02-24] MEDS ORDERED: HEPARIN/NACL 0.9% 2 UNITS/ML 1,000 ML IV ONE (08:12)
[2019-02-24] MEDS ORDERED: LIDOCAINE 1% 20 ML VIAL ONE (08:12)
[2019-02-24] MEDS ORDERED: fentaNYL 100 MCG/2 ML VIAL ONE ×2 (08:21→09:06)
[2019-02-24] MEDS ORDERED: MIDAZOLAM 2 MG/2 ML VIAL ONE ×3 (08:21→09:01)
[2019-02-24] MEDS: INSULIN LISPRO 100 UNIT/ML SUBCUT SCH ×4 (08:39→20:25)
[2019-02-24] MEDS ORDERED: BIVALIRUDIN 250 MG VIAL IV ONE (08:44)
[2019-02-24] MEDS: RANOLAZINE 500 MG TABLET PO SCH (10:53)
[2019-02-24] MEDS ORDERED: SODIUM CHLORIDE 0.9% 1,000 ML IV PRN (11:06)
[2019-02-24] MEDS ORDERED: FUROSEMIDE 40 MG/4 ML VIAL IV ONE (11:08)
[2019-02-24 11:35] LABS: % Iron Saturation 11.6 % (18-50)
[2019-02-24] MEDS: ONDANSETRON 4 MG/2 ML VIAL IV PRN ×3 (11:50→20:25)
[2019-02-24] MEDS ORDERED: SODIUM CHLORIDE 0.9% 250 ML IV ONE (15:19)
[2019-02-24] MEDS ORDERED: diphenhydrAMINE 50 MG/1 ML VIAL ONE (15:22)
[2019-02-24] MEDS ORDERED: diphenhydrAMINE 50 MG/1 ML VIAL IV ONE (15:24)
[2019-02-24] MEDS ORDERED: methylPREDNISolone SOD SUC 40 MG/1 ML VIAL IV ONE (15:24)
[2019-02-24] MEDS: POLYETHYLENE GLYCOL POWDER 17 GM PACK PO SCH (16:14)
[2019-02-24] MEDS: FLUTICASONE 50 MCG NASAL SPRAY 16 GM BOTTLE BOTH NARES SCH (16:15)
[2019-02-24] MEDS: ISOSORBIDE DINITRATE 20 MG TABLET PO SCH ×2 (16:15→20:25)
[2019-02-24] MEDS: PRASUGREL 10 MG TABLET PO SCH (16:15)
[2019-02-24 16:43] LABS: Alanine Aminotransferase 20 U/L (13-56); Albumin 2.5 G/DL (3.4-5.0); Alkaline Phosphatase 85 U/L (45-117); Aspartate Amino Transferase 24 U/L (0-37); Bilirubin,Total < 0.39 MG/DL (0.2-1.0); Blood Urea Nitrogen 18 MG/DL (7-18); Calcium 8.5 MG/DL (8.5-10.1); Estimated Glom Filtration Rate 60 ML/MIN; Glucose 203 MG/DL (74-106); Osmolality,Calculated 286.4 MOS/KG (273-304); Total Protein 6.6 G/DL (6.4-8.3)
[2019-02-24 17:33] LABS: ABG Base Excess 0.9 MMOL/L (-2.5-2.5); ABG HCO3 25.2 MMOL/L (20-26); ABG Oxygen Saturation 97.4 % (95-100); ABG PCO2 42.4 MM HG (35-48); ABG PH 7.394 (7.35-7.45); ABG PO2 90.9 MM HG (80-95); ABG TCO2 23.6 MMOL/L (23-27)
[2019-02-24 19:38] LABS: Basophils % 0.7 % (0.0-0.8); Eosinophils # 0.1 10*3/uL (0.0-0.87); Eosinophils % 2.7 % (0.00-10.9); Hemoglobin 9.2 GM/DL (12.0-16.0); Immature Granulocytes % 0.2 %; Immature Granulocytes Absolute 0.01 #; Lymphocytes # 1.1 10*3/uL (1.4-4.0); Lymphocytes % 26.4 % (21.3-54.2); Mean Corpuscular HGB Conc 30.7 GM/DL (32-36); Mean Corpuscular Volume 74.3 FL (87-102); Mean Platelet Volume 9.5 FL (9.6-12.0); Monocytes % 6.2 % (1.7-12.7); Neutrophils % 63.8 % (38.7-73.9); Platelet Count 141 T/CUMM (130-400); Red Blood Count 4.04 MC/CUMM (3.8-5.5); Red Cell Distribution Width 15.6 % (9.3-17.3)
[2019-02-24] MEDS: EZETIMIBE 10 MG TABLET PO SCH (20:26)
[2019-02-25 04:01] LABS: Eosinophils % 0.2 % (0.00-10.9); Hemoglobin 9.4 GM/DL (12.0-16.0); Immature Granulocytes % 0.5 %; Immature Granulocytes Absolute 0.03 #; Lymphocytes # 0.5 10*3/uL (1.4-4.0); Lymphocytes % 9.1 % (21.3-54.2); Mean Corpuscular HGB Conc 31.3 GM/DL (32-36); Mean Corpuscular Volume 71.6 FL (87-102); Mean Platelet Volume 9.3 FL (9.6-12.0); Monocytes % 2.9 % (1.7-12.7); Neutrophils % 87.3 % (38.7-73.9); Platelet Count 166 T/CUMM (130-400); Red Blood Count 4.19 MC/CUMM (3.8-5.5); Red Cell Distribution Width 15.3 % (9.3-17.3); White Blood Count 5.5 T/CUMM (4-12)
[2019-02-25 04:13] LABS: Calcium 8.9 MG/DL (8.5-10.1); Osmolality,Calculated 284.5 MOS/KG (273-304)
[2019-02-25] MEDS: SODIUM CHLORIDE 0.45% 1,000 ML IV SCH (06:31)
[2019-02-25] MEDS ORDERED: HYDROCORTISONE 100 MG VIAL IV SCH (08:00)
[2019-02-25] MEDS: INSULIN LISPRO 100 UNIT/ML SUBCUT SCH ×4 (08:11→21:25)
[2019-02-25] MEDS: POLYETHYLENE GLYCOL POWDER 17 GM PACK PO SCH (09:07)
[2019-02-25] MEDS: ENOXAPARIN 40 MG/0.4 ML SYRINGE SUBCUT SCH (09:15)
[2019-02-25] MEDS: PRASUGREL 10 MG TABLET PO SCH (09:15)
[2019-02-25] MEDS: PANTOPRAZOLE 40 MG TABLET PO SCH (09:16)
[2019-02-25] MEDS: ISOSORBIDE DINITRATE 20 MG TABLET PO SCH ×2 (09:17→21:27)
[2019-02-25] MEDS: ASPIRIN EC 81 MG TABLET PO SCH (09:17)
[2019-02-25] MEDS: FLUTICASONE 50 MCG NASAL SPRAY 16 GM BOTTLE BOTH NARES SCH (09:40)
[2019-02-25] MEDS ORDERED: ceFAZolin 1,000 MG in SYRINGE 1 EACH IV ONE (10:23)
[2019-02-25] MEDS ORDERED: ceFAZolin 1,000 MG VIAL IRRIG ONE (10:23)
[2019-02-25] MEDS ORDERED: INFLUENZA VIRUS VACCINE 0.5 ML SYRINGE IM ONE (11:09)
[2019-02-25] MEDS ORDERED: HEPARIN/NACL 0.9% 2 UNITS/ML 500 ML IV ONE (11:51)
[2019-02-25] MEDS ORDERED: MIDAZOLAM 2 MG/2 ML VIAL ONE ×2 (11:52→12:25)
[2019-02-25] MEDS ORDERED: fentaNYL 100 MCG/2 ML VIAL ONE ×2 (11:52→12:25)
[2019-02-25] MEDS ORDERED: ceFAZolin 1,000 MG VIAL ONE (11:53)
[2019-02-25] MEDS ORDERED: TISSUE ADHESIVE 1 EACH APPLICATOR TOP ONE (11:53)
[2019-02-25] MEDS ORDERED: LIDOCAINE 1% 20 ML VIAL ONE (11:55)
[2019-02-25] MEDS ORDERED: DEXTROSE 50% 25 GM/50 ML VIAL IV PRN (12:53)
[2019-02-25] MEDS ORDERED: ACETAMINOPHEN 325 MG TABLET PO PRN (12:53)
[2019-02-25] MEDS ORDERED: IBUPROFEN 400 MG TABLET PO PRN (12:53)
[2019-02-25 16:05] LABS: Apearance,Urine Slightly Hazy (Clear); Bacteria,Urine Occasional /HPF (Few); Bilirubin,Urine Negative (Negative); Blood, Urine Moderate mg/dL (Negative); Glucose,Urine (UA) 50 mg/dL (Negative); Ketones,Urine Negative (Negative); Mucus,Urine Occasional /LPF (Occasional); Nitrite,Urine Negative (Negative); Protein,Urine 100 MG/DL; RBC,Urine 28 /HPF (0-4); Squamous Epithelial Cell,Urine Occasional /HPF (0-10); Urine Color Yellow (Yellow); Urine Specific Gravity 1.025 (1.001-1.035); Urine Urobilinogen < 2.0 EU/DL (0.2-1.0); WBC,Urine 29 /HPF (0-6)
[2019-02-25] MEDS: glipiZIDE 5 MG TABLET PO SCH (16:34)
[2019-02-25] MEDS: ceFAZolin 1,000 MG in SYRINGE 1 EACH IV SCH (18:20)
[2019-02-25] MEDS: EZETIMIBE 10 MG TABLET PO SCH (21:25)
[2019-02-25] MEDS: ACETAMINOPHEN 325 MG TABLET PO PRN (21:26)
[2019-02-25] MEDS: METOPROLOL TARTRATE 50 MG TABLET PO SCH (21:27)
[2019-02-26] MEDS: ACETAMINOPHEN 325 MG TABLET PO PRN (01:35)
[2019-02-26] MEDS: ceFAZolin 1,000 MG in SYRINGE 1 EACH IV SCH (01:53)
[2019-02-26 05:20] LABS: Basophils % 0.3 % (0.0-0.8); Eosinophils # 0.1 10*3/uL (0.0-0.87); Eosinophils % 1.6 % (0.00-10.9); Hematocrit 28.9 VOL% (35.7-47.0); Immature Granulocytes % 0.3 %; Immature Granulocytes Absolute 0.02 #; Lymphocytes # 1.9 10*3/uL (1.4-4.0); Lymphocytes % 32.9 % (21.3-54.2); Mean Corpuscular HGB Conc 31.1 GM/DL (32-36); Mean Corpuscular Volume 72.1 FL (87-102); Mean Platelet Volume 9.3 FL (9.6-12.0); Monocytes % 8.9 % (1.7-12.7); Platelet Count 149 T/CUMM (130-400); Red Blood Count 4.01 MC/CUMM (3.8-5.5); Red Cell Distribution Width 15.3 % (9.3-17.3); White Blood Count 5.7 T/CUMM (4-12)
[2019-02-26 05:33] LABS: Calcium 8.9 MG/DL (8.5-10.1); Osmolality,Calculated 288.8 MOS/KG (273-304)
[2019-02-26 08:08] VITALS: BP 122/54
[2019-02-26] MEDS: INSULIN LISPRO 100 UNIT/ML SUBCUT SCH (08:08)
[2019-02-26] MEDS: FLUTICASONE 50 MCG NASAL SPRAY 16 GM BOTTLE BOTH NARES SCH (08:33)
[2019-02-26] MEDS: ASPIRIN EC 81 MG TABLET PO SCH (08:34)
[2019-02-26] MEDS: PANTOPRAZOLE 40 MG TABLET PO SCH (08:34)
[2019-02-26] MEDS: METOPROLOL TARTRATE 50 MG TABLET PO SCH (08:35)
[2019-02-26] MEDS: ISOSORBIDE DINITRATE 20 MG TABLET PO SCH (08:35)
[2019-02-26] MEDS: POLYETHYLENE GLYCOL POWDER 17 GM PACK PO SCH (08:35)
[2019-02-26] MEDS: glipiZIDE 5 MG TABLET PO SCH (08:35)
[2019-02-26] MEDS: PRASUGREL 10 MG TABLET PO SCH (08:35)
[2019-02-26] MEDS ORDERED: cephALEXin 500 MG CAPSULE PO SCH (09:00)
== END 2019-02-26 12:12 | disposition home or self-care (01) | DRG 243 ==
LOC: EDUNIT# → EDBD → N.ED 17:21 → SUATTDRO 19:38 → N.EDINP 19:38 → N.TELEN 21:00 → N.ICU 02-24 15:38 → N.TELES 02-25 13:59
PROVIDERS: ADMIT Internal Medicine; ATTEND Internal Medicine
PROC: CLCCHCL (ICD-10-PCS; 2019-02-24 09:15)

== ENCOUNTER 2019-07-14 16:14 | Observation (INO) ==
[2019-07-14] MEDS ORDERED: AZITHROMYCIN INJ 500 MG in SODIUM CHLORIDE 0.9% 250 ML IV STA (17:44)
[2019-07-14] MEDS ORDERED: ONDANSETRON 4 MG/2 ML VIAL IV STA (17:44)
[2019-07-14] MEDS ORDERED: methylPREDNISolone SOD SUC 125 MG/2 ML VIAL IV STA (17:44)
[2019-07-14] MEDS ORDERED: ALBUTEROL NEB SOLN 5 MG/ML 20 ML/BOTTLE CONT NEB SCH (18:00)
[2019-07-14 18:37] LABS: Basophils % 0.3 % (0.0-0.8); Eosinophils # 0.2 10*3/uL (0.0-0.87); Eosinophils % 2.6 % (0.00-10.9); Hematocrit 31.1 VOL% (35.7-47.0); Hemoglobin 9.2 GM/DL (12.0-16.0); Immature Granulocytes % 0.3 %; Immature Granulocytes Absolute 0.02 #; Lymphocytes # 1.5 10*3/uL (1.4-4.0); Lymphocytes % 24.1 % (21.3-54.2); Mean Corpuscular HGB Conc 29.6 GM/DL (32-36); Mean Corpuscular Volume 73.7 FL (87-102); Mean Platelet Volume 8.8 FL (9.6-12.0); Monocytes % 7.4 % (1.7-12.7); Neutrophils % 65.3 % (38.7-73.9); Platelet Count 204 T/CUMM (130-400); Red Blood Count 4.22 MC/CUMM (3.8-5.5); Red Cell Distribution Width 16.9 % (9.3-17.3); White Blood Count 6.1 T/CUMM (4-12)
[2019-07-14 18:40] LABS: Apearance,Urine Slightly Hazy (Clear); Bilirubin,Urine Negative (Negative); Blood, Urine Small mg/dL (Negative); Glucose,Urine (UA) >=500 mg/dL (Negative); Hyaline Casts,Urine 1 /LPF (0-3); Ketones,Urine Negative (Negative); Nitrite,Urine Negative (Negative); Protein,Urine Negative; RBC,Urine 3 /HPF (0-4); Squamous Epithelial Cell,Urine Occasional /HPF (0-10); Urine Color Yellow (Yellow); Urine Specific Gravity 1.005 (1.001-1.035); Urine Urobilinogen < 2.0 EU/DL (0.2-1.0); WBC,Urine 1 /HPF (0-6)
[2019-07-14 18:47] LABS: INR 0.9; PT Patient Result 10.2 SECS (9.6-12.2); Partial Thromboplastin Time 24.4 SECS (20.8-36.0)
[2019-07-14 18:59] LABS: Albumin 3.3 G/DL (3.4-5.0); Bilirubin,Total 0.4 MG/DL (0.2-1.0); Calcium 9.5 MG/DL (8.5-10.1); Osmolality,Calculated 276.4 MOS/KG (273-304); Total Protein 7.8 G/DL (6.4-8.3)
[2019-07-14] MEDS ORDERED: ZALEPLON 5 MG CAPSULE PO PRN (21:25)
[2019-07-14] MEDS ORDERED: ACETAMINOPHEN 325 MG TABLET PO PRN (21:25)
[2019-07-14] MEDS ORDERED: GLUCAGON 1 MG VIAL IM PRN ×2 (21:25→21:32)
[2019-07-14] MEDS ORDERED: DEXTROSE 50% 25 GM/50 ML VIAL IV PRN ×2 (21:25→21:32)
[2019-07-14] MEDS ORDERED: ONDANSETRON 4 MG/2 ML VIAL IV PRN (21:25)
[2019-07-14] MEDS ORDERED: ALUMINUM/MAGNES/SIMETH MAX STR 30 ML UDCUP PO PRN (21:25)
[2019-07-14] MEDS ORDERED: BISACODYL 5 MG TABLET PO PRN (21:25)
[2019-07-14] MEDS ORDERED: DOCUSATE SODIUM 100 MG CAPSULE PO PRN (21:25)
[2019-07-14] MEDS ORDERED: IBUPROFEN 800 MG TABLET PO PRN (21:43)
[2019-07-14] MEDS ORDERED: cefTRIAXone 1,000 MG in SYRINGE 1 EACH IV SCH (23:00)
[2019-07-15] MEDS: ALBUTEROL 2.5 MG/3 ML NEB RESP TX SCH ×2 (00:58→08:00)
[2019-07-15] MEDS: INSULIN REGULAR 100 UNIT/ML SUBCUT SCH ×2 (08:21→11:15)
[2019-07-15] MEDS ORDERED: ENOXAPARIN 40 MG/0.4 ML SYRINGE SUBCUT SCH (09:00)
[2019-07-15] MEDS ORDERED: PRASUGREL 10 MG TABLET PO SCH (09:00)
[2019-07-15] MEDS ORDERED: METOPROLOL TARTRATE 50 MG TABLET PO SCH (09:00)
[2019-07-15] MEDS ORDERED: PANTOPRAZOLE 40 MG TABLET PO SCH (09:00)
[2019-07-15 09:05] LABS: Basophils % 0.1 % (0.0-0.8); Hematocrit 27.7 VOL% (35.7-47.0); Hemoglobin 8.1 GM/DL (12.0-16.0); Immature Granulocytes % 0.3 %; Immature Granulocytes Absolute 0.02 #; Lymphocytes # 0.5 10*3/uL (1.4-4.0); Mean Corpuscular HGB Conc 29.2 GM/DL (32-36); Mean Corpuscular Volume 74.1 FL (87-102); Mean Platelet Volume 8.9 FL (9.6-12.0); Monocytes % 1.2 % (1.7-12.7); Neutrophils % 91.4 % (38.7-73.9); Platelet Count 172 T/CUMM (130-400); Red Blood Count 3.74 MC/CUMM (3.8-5.5); Red Cell Distribution Width 17.2 % (9.3-17.3); White Blood Count 7.7 T/CUMM (4-12)
[2019-07-15 09:24] LABS: Band Neutrophils 1 % (0-10); Eosinophils 1 % (0-10); Hypochromasia 1+; Lymphocytes 8 % (20-55); Platelet Estimate Adequate; Segmented Neutrophils 88 % (50-85); Total Cells Counted 100
[2019-07-15 09:36] LABS: Alanine Aminotransferase 23 U/L (13-56); Albumin 3.2 G/DL (3.4-5.0); Alkaline Phosphatase 111 U/L (45-117); Aspartate Amino Transferase 14 U/L (0-37); Bilirubin,Total < 0.39 MG/DL (0.2-1.0); Blood Urea Nitrogen 26 MG/DL (7-18); Calcium 9.3 MG/DL (8.5-10.1); Estimated Glom Filtration Rate 48 ML/MIN; Glucose 387 MG/DL (74-106); Osmolality,Calculated 288.2 MOS/KG (273-304); Total Protein 7.6 G/DL (6.4-8.3)
[2019-07-15 11:29] VITALS: BP 132/45
[2019-07-15] MEDS ORDERED: AZITHROMYCIN INJ 500 MG in SODIUM CHLORIDE 0.9% 250 ML IV SCH (17:00)
[2019-07-15] MEDS ORDERED: EZETIMIBE 10 MG TABLET PO SCH (21:00)
== END 2019-07-15 13:27 | disposition home or self-care (01) ==
LOC: N.EDINP 16:14 → N.ED 16:14 → N.2E 07-15 00:10
PROVIDERS: ADMIT Internal Medicine; ATTEND Internal Medicine

== ENCOUNTER 2019-10-26 14:05 | Observation (INO) ==
[2019-10-26] MEDS ORDERED: PROMETHAZINE 25 MG TABLET PO PRN (15:59)
[2019-10-26] MEDS ORDERED: ALUMINUM/MAGNES/SIMETH MAX STR 30 ML UDCUP PO PRN (15:59)
[2019-10-26] MEDS ORDERED: SIMETHICONE CHEW 125 MG TABLET PO PRN (15:59)
[2019-10-26] MEDS ORDERED: guaiFENesin/DM ER 600-30 MG TABLET PO PRN (15:59)
[2019-10-26] MEDS ORDERED: ACETAMINOPHEN 325 MG TABLET PO PRN (15:59)
[2019-10-26] MEDS ORDERED: MAGNESIUM SULF RIDER 2 GM in PREMIX 1 EACH IV PRN (15:59)
[2019-10-26] MEDS ORDERED: hydrALAZINE 20 MG/1 ML VIAL IV PRN (15:59)
[2019-10-26] MEDS ORDERED: ZALEPLON 5 MG CAPSULE PO PRN (15:59)
[2019-10-26] MEDS ORDERED: POTASSIUM CHLORIDE 20 MEQ TABLET PO PRN (15:59)
[2019-10-26] MEDS ORDERED: diphenhydrAMINE CAP 25 MG CAPSULE PO PRN (15:59)
[2019-10-26] MEDS ORDERED: ONDANSETRON 4 MG/2 ML VIAL IV PRN (15:59)
[2019-10-26] MEDS ORDERED: MAGNESIUM SULF RIDER 4 GM in PREMIX 1 EACH IV PRN (15:59)
[2019-10-26] MEDS ORDERED: BISACODYL 5 MG TABLET PO PRN (15:59)
[2019-10-26] MEDS ORDERED: hydrALAZINE 20 MG/1 ML VIAL IV STA (17:15)
[2019-10-26 17:36] LABS: Basophils % 0.3 % (0.0-0.8); Eosinophils % 0.1 % (0.00-10.9); Hematocrit 29.2 VOL% (35.7-47.0); Hemoglobin 8.6 GM/DL (12.0-16.0); Immature Granulocytes % 0.9 %; Immature Granulocytes Absolute 0.07 #; Lymphocytes # 0.7 10*3/uL (1.4-4.0); Lymphocytes % 8.4 % (21.3-54.2); Mean Corpuscular HGB Conc 29.5 GM/DL (32-36); Monocytes % 1.3 % (1.7-12.7); Platelet Count 190 T/CUMM (130-400); Red Cell Distribution Width 16.8 % (9.3-17.3); White Blood Count 7.7 T/CUMM (4-12)
[2019-10-26 18:00] LABS: Albumin 3.7 G/DL (3.4-5.0); Bilirubin,Total 0.5 MG/DL (0.2-1.0); Calcium 9.3 MG/DL (8.5-10.1); Osmolality,Calculated 283.8 MOS/KG (273-304); Total Protein 7.9 G/DL (6.4-8.3)
[2019-10-26 18:10] LABS: Apearance,Urine CLEAR (Clear); Bacteria,Urine Occasional /HPF (Few); Bilirubin,Urine Negative (Negative); Blood, Urine Small mg/dL (Negative); Glucose,Urine (UA) Negative (Negative); Ketones,Urine Negative (Negative); Nitrite,Urine Negative (Negative); Protein,Urine 30 MG/DL; RBC,Urine 2 /HPF (0-4); Squamous Epithelial Cell,Urine Occasional /HPF (0-10); Urine Color Straw (Yellow); Urine Specific Gravity 1.006 (1.001-1.035); Urine Urobilinogen < 2.0 EU/DL (0.2-1.0); WBC,Urine <1 /HPF (0-6)
[2019-10-26 18:19] LABS: Anisocytosis 1+; Hypochromasia Slight; Microcytosis 1+; Platelet Estimate Adequate
[2019-10-27 05:02] LABS: Basophils % 0.1 % (0.0-0.8); Hematocrit 27.1 VOL% (35.7-47.0); Immature Granulocytes % 0.7 %; Immature Granulocytes Absolute 0.07 #; Lymphocytes # 0.8 10*3/uL (1.4-4.0); Lymphocytes % 7.8 % (21.3-54.2); Mean Corpuscular HGB Conc 29.5 GM/DL (32-36); Mean Corpuscular Volume 72.7 FL (87-102); Mean Platelet Volume 9.1 FL (9.6-12.0); Monocytes % 2.8 % (1.7-12.7); Neutrophils % 88.6 % (38.7-73.9); Platelet Count 174 T/CUMM (130-400); Red Blood Count 3.73 MC/CUMM (3.8-5.5); Red Cell Distribution Width 16.6 % (9.3-17.3); White Blood Count 10.3 T/CUMM (4-12)
[2019-10-27 05:17] LABS: Calcium 9.4 MG/DL (8.5-10.1); Osmolality,Calculated 287.8 MOS/KG (273-304)
[2019-10-27] MEDS ORDERED: ONDANSETRON 4 MG/2 ML VIAL IV PRN (08:11)
[2019-10-27] MEDS ORDERED: ACETAMINOPHEN 325 MG TABLET PO PRN (08:11)
[2019-10-27] MEDS ORDERED: ZALEPLON 5 MG CAPSULE PO PRN (08:11)
[2019-10-27] MEDS ORDERED: diphenhydrAMINE CAP 25 MG CAPSULE PO PRN (08:11)
[2019-10-27] MEDS ORDERED: MAGNESIUM SULF RIDER 4 GM in PREMIX 1 EACH IV PRN (08:11)
[2019-10-27] MEDS ORDERED: hydrALAZINE 20 MG/1 ML VIAL IV PRN (08:11)
[2019-10-27] MEDS ORDERED: SIMETHICONE CHEW 125 MG TABLET PO PRN (08:11)
[2019-10-27] MEDS ORDERED: MAGNESIUM SULF RIDER 2 GM in PREMIX 1 EACH IV PRN (08:11)
[2019-10-27] MEDS ORDERED: DOCUSATE SODIUM 100 MG CAPSULE PO PRN (08:11)
[2019-10-27] MEDS ORDERED: guaiFENesin/DM ER 600-30 MG TABLET PO PRN (08:11)
[2019-10-27] MEDS ORDERED: ALUMINUM/MAGNES/SIMETH MAX STR 30 ML UDCUP PO PRN (08:11)
[2019-10-27] MEDS ORDERED: PROMETHAZINE 25 MG TABLET PO PRN (08:11)
[2019-10-27] MEDS ORDERED: traMADol 50 MG TABLET PO PRN (08:13)
[2019-10-27] MEDS ORDERED: NITROGLYCERIN SL 0.4 MG TABLET SL PRN (08:13)
[2019-10-27] MEDS ORDERED: FUROSEMIDE 20 MG TABLET PO SCH (09:00)
[2019-10-27] MEDS ORDERED: MULTIVITAMIN (BEROCCA) TABLET PO SCH (09:00)
[2019-10-27] MEDS ORDERED: FLUTICASONE 50 MCG NASAL SPRAY 16 GM BOTTLE BOTH NARES SCH (09:00)
[2019-10-27] MEDS ORDERED: SPIRONOLACTONE 25 MG TABLET PO SCH (09:00)
[2019-10-27] MEDS ORDERED: NEBIVOLOL 10 MG TABLET PO SCH (09:00)
[2019-10-27] MEDS ORDERED: CYANOCOBALAMIN 500 MCG TABLET PO SCH (09:00)
[2019-10-27] MEDS ORDERED: ASPIRIN EC 81 MG TABLET PO SCH (09:00)
[2019-10-27] MEDS ORDERED: PANTOPRAZOLE 40 MG TABLET PO SCH ×2 (09:00)
[2019-10-27] MEDS ORDERED: NEBIVOLOL 5 MG TABLET PO SCH (10:05)
[2019-10-27] MEDS ORDERED: FUROSEMIDE 20 MG TABLET PO PRN (10:05)
[2019-10-27] MEDS ORDERED: INSULIN LISPRO 100 UNIT/ML SUBCUT SCH (11:30)
[2019-10-27 12:00] VITALS: BP 174/77
[2019-10-27] MEDS ORDERED: FERROUS SULFATE 325 MG TABLET PO SCH (15:00)
[2019-10-27] MEDS ORDERED: EZETIMIBE 10 MG TABLET PO SCH (21:00)
[2019-10-27] MEDS ORDERED: ASCORBIC ACID 500 MG TABLET PO SCH (21:00)
[2019-11-02] MEDS ORDERED: ERGOCALCIFEROL 50,000 UNIT CAPSULE PO SCH (09:00)
== END 2019-10-27 14:49 | disposition home or self-care (01) ==
LOC: N.EDINP 14:05 → N.ED 14:05 → N.EDINP 20:01 → N.TELEN 20:51
PROVIDERS: ADMIT Internal Medicine Cardiovascular Disease; ATTEND Internal Medicine Cardiovascular Disease